=== PATIENT | male | born 1960 | race Caucasian/White ===

== ENCOUNTER 2019-12-15 12:06 | Inpatient (IN) ==
[2019-12-15] MEDS ORDERED: dilTIAZem HCl 5 MG/ML 5 ML VIAL IV STA (12:17)
[2019-12-15] MEDS ORDERED: STAT IV Infusion **Titration per Protocol STA (12:17)
[2019-12-15] MEDS ORDERED: SODIUM CHLORIDE 0.9% 500 ML IV SCH (12:30)
--- NOTE | 2019-12-15 12:31 | Electrocardiogram Report ---
Test Reason : Blood Pressure : / mmHG Vent. Rate : 173 BPM Atrial Rate : 133 BPM P-R Int : 000 ms QRS Dur : 076 ms QT Int : 264 ms P-R-T Axes : 000 061 080 degrees QTc Int : 447 ms Poor data quality, interpretation may be adversely affected Atrial fibrillation with rapid ventricular response Abnormal ECG When compared with ECG of 11-AUG-2014 11:38, ST no longer depressed in Inferior leads Nonspecific T wave abnormality no longer evident in Inferior leads Confirmed by Elieser Hurley ([id number]) on 12/15/2019 12:31:09 PM Referred By: Confirmed By:Elieser Hurley
[2019-12-15] MEDS: dilTIAZem HCL 125 MG in DEXTROSE 5% 100 ML IV SCH ×2 (12:50→20:40)
--- NOTE | 2019-12-15 12:53 | XRay Report ---
XR chest 1V portable CLINICAL HISTORY: Atypical chest pain COMPARISON STUDY: 08/11/2014 FINDINGS: The heart is normal in size. There is mild interstitial thickening. There is no lobar conso lidation. There are no pleural effusions.[ IMPRESSION: Mild nonspecific interstitial thickening. No evidence of focal pulmonary consolidation ACT 112: Negative or not required by law. Electronically signed by: Mik Orr M.D. 12/15/2019 12:52 PM
[2019-12-15] MEDS ORDERED: METOPROLOL TARTRATE 1 MG/ML VIAL IV STA ×2 (13:45→14:10)
--- NOTE | 2019-12-15 13:45 | Emergency Department Note ---
History of Present Illness General Chief complaint: Cardiac Assessment Stated complaint: rapid afib/abd pain / sci [place] Time Seen by Provider: 12/15/19 12:09 Source: patient Mode of arrival: EMS Limitations: no limitations History of Present Illness Provider complaint: Rapid A. fib Maximum Pain Intensity: 0 The patient was evaluated in the [facility] today and found to be in A. fib. EMS was called and the patient was brought here for evaluation. He was given some IV fluids in route here. The patient denies any palpitations or chest pains. He did report some aching in his left shoulder a week ago. Otherwise has no complaints. He reports a history of being cardioverted in the past. Allergies Allergy/AdvReac Type Severity Reaction Status Date / Time Penicillins Allergy Unknown UNKN Verified 08/11/14 12:06 Past Med/Surg History Social History Smoking Status: Current every day smoker Tobacco Type: E-cigarettes / Vaping Preferred Language: Azerbaijani Feels Safe at Home: Yes Review of Systems A total of 10 systems reviewed and were otherwise negative Physical Exam Vital Signs Vital Signs - 24 hr 12/15/19 12:17 12/15/19 12:35 12/15/19 12:39 Temperature 36.7 C Temperature Source Oral Pulse Rate 177 H 123 H 113 H Pulse Rate from SpO2 Sensor 121 H 119 H Respiratory Rate 16 30 H 32 H Respiratory Effort / Characteristics Non-Labored Respiratory Depth Normal Respiratory Pattern Regular Blood Pressure 117/84 100/75 Blood Pressure Mean 95 81 Blood Pressure Position Lying Pulse Oximetry 97 98 98 Oxygen Delivery Method Room Air Sepsis Recent Fever Within 48 Hours No Sepsis New/Unexplained Change in Mental Status N/A Sepsis Action Taken by Nursing No Action Required 12/15/19 12:40 12/15/19 12:45 12/15/19 12:50 Temperature Temperature Source Pulse Rate 120 H 144 H 150 H Pulse Rate from SpO2 Sensor 128 H 126 H Respiratory Rate 22 Respiratory Effort / Characteristics Respiratory Depth Respiratory Pattern Blood Pressure 107/64 111/71 Blood Pressure Mean 70 75 Blood Pressure Position Pulse Oximetry 98 98 Oxygen Delivery Method Sepsis Recent Fever Within 48 Hours Sepsis New/Unexplained Change in Mental Status Sepsis Action Taken by Nursing 12/15/19 12:51 12/15/19 12:55 12/15/19 12:56 Temperature Temperature Source Pulse Rate 151 H 127 H 133 H Pulse Rate from SpO2 Sensor 137 H 131 H Respiratory Rate 30 H 19 34 H Respiratory Effort / Characteristics Respiratory Depth Respiratory Pattern Blood Pressure 103/77 127/77 Blood Pressure Mean 91 91 Blood Pressure Position Pulse Oximetry 97 98 Oxygen Delivery Method Sepsis Recent Fever Within 48 Hours Sepsis New/Unexplained Change in Mental Status Sepsis Action Taken by Nursing 12/15/19 13:00 12/15/19 13:05 12/15/19 13:10 Temperature Temperature Source Pulse Rate 143 H 127 H 109 H Pulse Rate from SpO2 Sensor 131 H 111 H 125 H Respiratory Rate 34 H 31 H 30 H Respiratory Effort / Characteristics Respiratory Depth Respiratory Pattern Blood Pressure 102/70 110/75 Blood Pressure Mean 79 85 Blood Pressure Position Pulse Oximetry 99 98 Oxygen Delivery Method Sepsis Recent Fever Within 48 Hours Sepsis New/Unexplained Change in Mental Status Sepsis Action Taken by Nursing 12/15/19 13:11 12/15/19 13:15 12/15/19 13:16 Temperature Temperature Source Pulse Rate 145 H 138 H 145 H Pulse Rate from SpO2 Sensor 133 H 149 H Respiratory Rate 33 H 30 H 33 H Respiratory Effort / Characteristics Respiratory Depth Respiratory Pattern Blood Pressure 126/67 109/72 Blood Pressure Mean 86 83 Blood Pressure Position Pulse Oximetry 97 98 Oxygen Delivery Method Sepsis Recent Fever Within 48 Hours Sepsis New/Unexplained Change in Mental Status Sepsis Action Taken by Nursing 12/15/19 13:20 12/15/19 13:25 12/15/19 13:30 Temperature Temperature Source Pulse Rate 127 H 142 H 147 H Pulse Rate from SpO2 Sensor 138 H 124 H 117 H Respiratory Rate 32 H 32 H 29 H Respiratory Effort / Characteristics Respiratory Depth Respiratory Pattern Blood Pressure 111/76 96/77 L Blood Pressure Mean 89 89 Blood Pressure Position Pulse Oximetry 98 98 96 Oxygen Delivery Method Sepsis Recent Fever Within 48 Hours Sepsis New/Unexplained Change in Mental Status Sepsis Action Taken by Nursing 12/15/19 13:31 12/15/19 13:35 12/15/19 13:36 Temperature Temperature Source Pulse Rate 142 H 120 H 137 H Pulse Rate from SpO2 Sensor 124 H 126 H 141 H Respiratory Rate 33 H 37 H 28 H Respiratory Effort / Characteristics Respiratory Depth Respiratory Pattern Blood Pressure 103/77 118/73 Blood Pressure Mean 85 90 Blood Pressure Position Pulse Oximetry 97 93 96 Oxygen Delivery Method Sepsis Recent Fever Within 48 Hours Sepsis New/Unexplained Change in Mental Status Sepsis Action Taken by Nursing CONSTITUTIONAL/VITAL SIGNS: Reviewed / noted above. GENERAL: Non-toxic in appearance. INTEGUMENTARY: Warm, dry, and [place]. HEAD: Normocephalic. EYES: without scleral icterus or trauma. ENT/OROPHARYNX: clear and moist. LYMPHADENOPATHY/NECK: Is supple without lymphadenopathy or meningismus. RESPIRATORY: Lungs clear and equal. CARDIOVASCULAR: Rapid rate and irregular rhythm. GI/ABDOMEN: Soft and nontender. No organomegaly or pulsatile mass. No rebound or guarding. Normal bowel sounds. EXTREMITIES: Warm and well perfused. BACK: No CVA tenderness. NEUROLOGICAL: Intact without focal deficits. PSYCHIATRIC: normal affect. MUSCULOSKELETAL: Normally developed with good muscle tone. TRIAGE NURSING DOCUMENTATION REVIEWED. Course Administered Medications Diltiazem HCl 125 mg/ Dextrose 125 mls @ 5 mls/hr IV .Q24H LYNNE; Protocol Stop: 01/14/20 12:29 Last Titration: 12/15/19 13:17 Dose: 15 mg/hr, 15 mls/hr Documented by: [id number] Cosigned by: [id number] Admin: 12/15/19 12:50 Dose: 10 mg/hr, 10 mls/hr Documented by: [id number] Cosigned by: [id number] Discontinued Medications Diltiazem HCl (Diltiazem Hcl 5 Mg/Ml 5 Ml Vial) 25 mg IV NOW STA Stop: 12/15/19 12:18 Last Admin: 12/15/19 12:22 Dose: 25 mg Documented by: [id number] Cosigned by: [id number] Sodium Chloride (Nss) 500 mls @ 999 mls/hr IV .Q31M LYNNE Stop: 12/15/19 13:00 Last Infusion: 12/15/19 13:03 Dose: 0 mls/hr Documented by: [id number] Admin: 12/15/19 12:24 Dose: 999 mls/hr Documented by: [id number] Miscellaneous (Stat Iv Infusion Titration Per Protocol) 1 ea N/A NOW STA Stop: 12/15/19 12:18 Last Admin: 12/15/19 12:50 Dose: 1 ea Documented by: [id number] Medical Decision Making Differential Diagnosis The differential that was considered includes acute myocardial infarction, acute coronary syndrome, myocarditis, pericarditis, pericardial effusions /tamponade, esophageal perforation, thoracic aortic dissection, pulmonary embolism, pneumonia, pneumothorax, pancreatitis, shingles, acute cholecystitis, perforated abdominal viscus. Medical Records Attestation: I reviewed the patient's medical records. Home Medications Current Medication List: was personally reviewed by me Laboratory Data Attestation: I reviewed the patient's lab results. Imaging Data Radiologist's Impression: XR chest 1V portable CLINICAL HISTORY: Atypical chest pain COMPARISON STUDY: 08/11/2014 FINDINGS: The heart is normal in size. There is mild interstitial thickening. There is no lobar consolidation. There are no pleural effusions.[ IMPRESSION: Mild nonspecific interstitial thickening. No evidence of focal pulmonary consolidation Blood Pressure Blood Pressure Findings: Normal blood pressure MDM Narrative Patient presents with A. fib with RVR. He reportedly has a history of paroxysmal A. fib. The patient was treated with IV diltiazem here as well as IV fluids and IV metoprolol. He was given a diltiazem drip. Heart rate did improve some. He will be seen by the hospitalist for further inpatient evaluation and care. Impression & Plan Atrial fibrillation with RVR Discharge Plan Visit Data Chief Complaint: Cardiac Assessment Stated Complaint: rapid afib/abd pain / sci [place] ED Provider: Fritz Aguilar Discharge Problem: Atrial fibrillation with RVR Patient Disposition: Being Evaluated by Hospitalist Condition: Fair Forms Stand Alone Forms: My [facility], [facility] Emergency Department, Important Visit Information Referrals Referrals: Maciej MCCLURE [Primary Care Provider] -
[2019-12-15 13:55] LABS: Basophils # (auto) 0.01 K/uL (0-0.2); Basophils % (auto) 0.1 %; Eosinophils # (auto) 0.01 K/uL (0-0.5); Eosinophils % (auto) 0.1 %; Hematocrit (blood only) 37.8 % (42-52); Immature Granulocytes # (auto) 0.11 K/uL (0.00-0.02); Immature Granulocytes % (auto) 0.6 %; Lymphocytes # (auto) 1.01 K/uL (1.2-3.4); Lymphocytes % (auto) 5.6 %; Mean Corpuscular Hgb Conc 34.4 g/dL (32-36); Mean Platelet Volume 9.5 fL (7.4-10.4); Monocytes # (auto) 0.63 K/uL (0.11-0.59); Monocytes % (auto) 3.5 %; Neutrophils # (auto) 16.38 K/uL (1.4-6.5); Neutrophils % (auto) 90.1 %; Platelet Count 162 K/uL (130-400); RDW Coefficient of Variation 14.4 % (11.5-14.5); RDW Standard Deviation 47.8 fL (36.4-46.3); White Blood Count 18.15 K/uL (4.8-10.8)
[2019-12-15 14:14] LABS: Albumin Level 2.2 gm/dl (3.4-5.0); BUN Creatinine Ratio 28.4 (10-20); Calcium 8.6 mg/dl (8.5-10.1); Creatinine Clr Calc Pharmacy 108.5 ml/min; Est GFR (African American) 114.9; Est GFR (Non-African American) 99.2; Magnesium 2.4 mg/dl (1.8-2.4); Potassium 3.9 mmol/L (3.5-5.1)
[2019-12-15 14:24] LABS: Albumin Globulin Ratio 0.5 (0.9-2); Globulin 4.9 gm/dl (2.5-4.0); Thyroid Stimulating Hormone 0.477 uIu/ml (0.300-4.500); Total Protein 7.1 gm/dl (6.4-8.2)
--- NOTE | 2019-12-15 16:09 | History & Physical Report ---
Date of Service December 15, 2019 Assessment & Plan (1) Atrial fibrillation with RVR: Not known history to long-term but prior EKG in 2015 with confirmed prior diagnosis of this. Not on anticoagulation. TSH WNL. TTE ordered. Anticoagulation - [id number] score pending with US arterial doppler to confirm historical diagnosis of PVD - if positive would score 1 and will start Eliquis. Rate-control - fluid resuscitate with additional 1L NSS bolus now as clinically dry, then continue rate control with diltiazem IV drip, goal to transition to metoprolol as able after adequate fluid resuscitation (2) Leukocytosis: Suspect infection driving his atrial fibrillation. Questionable source cellulitis of the lower extremities. CT abdomen/pelvis with IV contrast to assess for abdominal cause given pain and diarrhea for last 2-4 days (although abdominal pain also mentioned in outpatient notes as far back as September 09). (3) Generalized abdominal pain: Diarrheal illness now resolved CT abdomen/pelvis with IV contrast (4) Cellulitis of right lower extremity: Questionable diagnosis given chronic venous changes, however elevated WBC and increased erythema and warmth on right compared to left side despite worse ulcers on left. Unable to explain leukocytosis otherwise. Blood cultures. Ceftriaxone 2g IV daily - patient is not-septic therefore will defer MRSA and pseudomonas coverage at the current time, consider MRSA coverage if WBC remains elevated without alternative explanation. Ultrasound arterial Doppler to assess for peripheral vascular disease (5) Venous ulcers of both lower extremities: Chronic. Unna boot used as outpatient at [facility] despite diagnosis of PVD. Consult wound care nurse for appropriate dressing while admitted. (6) Peripheral vascular disease: Unclear history of this. He is not on any antiplatelets or statin. US arterial Doppler. (7) BPH (benign prostatic hyperplasia): Continue finasteride 5 mg p.o. daily. Monitor for urinary retention as not on alpha-1 ovidio. (8) Mixed incontinence: Notable history of this. (9) Depression: Continue fluoxetine 20 mg p.o. daily, aripiprazole 2 mg p.o. daily. 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 This is on a background of 4 days of nausea, loose stool, abdominal pain. His diarrhea resolved 2 days ago. Not watery, no bright red blood, no melena. Nausea but with no vomiting. No fever, chills or cough. Sent to [facility] today due to RUQ pain noted on exam at long-term but also noted to be tachycardic with irregular heart rate. He also a longstanding history of chronic venous ulcers. This was more recently treated with an Unna boot starting on November 07. He was recently treated with antibiotics - Clindamycin initially then switched to Bactrim but has been off antibiotics since mid-October. The patient reports his legs actually look improved from previously although is unsure about the erythema. He denies any fevers, chills or worsening pain in his legs. No known history of atrial fibrillation per [facility] although listed as historical diagnosis in [employer] and I believe this was entered as a diagnosis for a 30 day event monitor back in 2014 that was never completed. Patient has no recollection of this. Allergies Allergy/AdvReac Type Severity Reaction Status Date / Time Penicillins Allergy Unknown UNKN Verified 12/15/19 14:34 Home Medications Home Medications Medication Instructions Recorded Confirmed Type aripiprazole 2 mg PO DAILY 12/15/19 12/15/19 History finasteride 5 mg PO DAILY 12/15/19 12/15/19 History fluoxetine 20 mg PO DAILY 12/15/19 12/15/19 History ibuprofen 600 mg PO TID 12/15/19 12/15/19 History vitamin A and D [A and D] 1 applic TOPICAL DAILY 12/15/19 12/15/19 History Past Med/Surg History Medical History Alcoholism BPH (benign prostatic hyperplasia) Depression Generalized abdominal pain Mixed incontinence Peripheral vascular disease Schizotypal personality disorder Venous ulcers of both lower extremities Social History Smoking Status: Former smoker Tobacco Type: E-cigarettes / Vaping Second Hand Exposure: Yes; Do You Dip or Chew Tobacco: No; Tobacco Cessation Education Requested by Patient: No Hx Alcohol Use: No Hx Substance Use: No Preferred Language: Somali Communication Ability: Effective Ironer Or Presser Required: No Beliefs That Will Affect Care: None Current Living Situation: Other Current Living Situation Comment: Inmate at [facility] Other Information That Helps Us Care for You: No Feels Safe at Home: Yes Safety Concerns: Feels Safe At This Time Review of Systems Review of Systems: All systems reviewed & are unremarkable except as noted in HPI & below Physical Exam Constitutional: well developed; + not well nourished and no acute distress Eyes: + anicteric sclerae; normal pupil size ENMT: Ears: no external ear abnormality Nose: no external nose abnormality Mouth: + dry oral mucous membranes Neck: trachea midline, no thyromegaly Respiratory: normal respiratory effort, lungs clear to auscultation Cardiovascular: Rate/Rhythm: + tachycardic and + irregularly irregular Heart Sounds: no murmur Vessels: no JVD Extremities: normal capillary refill (Bilateral LE); no calf tenderness and no pedal edema Gastrointestinal (Abdomen): Inspection/Auscultation: normal bowel sounds; abdomen not distended Percussion/Palpation: + abdomen tender (Generalized on palpation) and abdomen soft; no guarding and abdomen not rigid Musculoskeletal: no cyanosis or clubbing, extremities motor strength 5/5 Skin: Unna boots removed for examination. Erythema with warmth on RLE from mid ty to all toes, stage 1/2 ulcers above medical malleolus with crust formation as possible site of infection LLE with more significant cracked skin ulcerations on above medial malleolus with dark erythema surrounding ulceration 1-2 cm but otherwise much clearer the right side. Neurologic: moves all extremities and awake; no focal motor deficits and not confused Motor/Sensory: no tremor, no pronator drift and no sensory deficit (per patient, full sensation in feet) Psychiatric: Orientation: alert and oriented x 3 Affect: + anxious affect Genitourinary: no CVA tenderness Lymphatic: no cervical or axillary lymphadenopathy Results & Data Results & Data ([facility]) Vital Signs (Past 12 Hours) Vital Signs Temp Pulse Resp BP Pulse Ox 12/15/19 15:40 113 H 36 H 102/82 97 12/15/19 15:35 91 H 33 H 106/67 97 12/15/19 15:30 101 H 34 H 96/69 L 97 12/15/19 15:25 112 H 35 H 95/67 L 97 12/15/19 15:20 103 H 102/63 95 12/15/19 15:15 98 H 107/67 97 12/15/19 15:10 95 H 35 H 99/63 L 96 12/15/19 15:05 103 H 90/67 L 97 12/15/19 15:00 105 H 108/73 96 12/15/19 14:55 98 H 25 H 103/65 93 12/15/19 14:50 104 H 39 H 92/74 L 96 12/15/19 14:45 105 H 34 H 100/76 96 12/15/19 14:42 110 H 33 H 95 12/15/19 14:40 109 H 39 H 121/73 96 12/15/19 14:39 127 H 24 108/85 12/15/19 14:38 169 H 12/15/19 14:25 125 H 108/66 93 12/15/19 14:20 115 H 22 96/71 L 96 12/15/19 14:15 115 H 28 H 88/72 L 94 12/15/19 14:10 120 H 26 H 95/64 L 96 12/15/19 14:05 102 H 19 94/72 L 95 12/15/19 14:00 120 H 90/69 L 95 12/15/19 13:55 140 H 32 H 115/78 96 12/15/19 13:50 146 H 29 H 101/75 95 12/15/19 13:45 139 H 32 H 115/70 96 12/15/19 13:40 134 H 33 H 90/76 L 96 12/15/19 13:36 137 H 28 H 118/73 96 12/15/19 13:35 120 H 37 H 93 12/15/19 13:31 142 H 33 H 103/77 97 12/15/19 13:30 147 H 29 H 96 12/15/19 13:25 142 H 32 H 96/77 L 98 12/15/19 13:20 127 H 32 H 111/76 98 12/15/19 13:16 145 H 33 H 109/72 98 12/15/19 13:15 138 H 30 H 12/15/19 13:11 145 H 33 H 126/67 97 12/15/19 13:10 109 H 30 H 12/15/19 13:05 127 H 31 H 110/75 98 12/15/19 13:00 143 H 34 H 102/70 99 12/15/19 12:56 133 H 34 H 127/77 98 12/15/19 12:55 127 H 19 12/15/19 12:51 151 H 30 H 103/77 97 12/15/19 12:50 150 H 12/15/19 12:45 144 H 22 111/71 98 12/15/19 12:40 120 H 107/64 98 12/15/19 12:39 113 H 32 H 98 12/15/19 12:35 123 H 30 H 100/75 98 12/15/19 12:17 36.7 C 177 H 16 117/84 97 Diagnostic Findings XR chest 1V portable IMPRESSION: Mild nonspecific interstitial thickening. No evidence of focal pulmonary consolidation ECG Rate (beats per minute): 173 Rhythm: atrial fibrillation Comparison ECG Date: from (August 11, 2014) Change: the following changes noted (ST no longer depressed in inferior leads) Code Status & VTE Plan Code Status Full VTE Prophylaxis Plan VTE Prophylaxis will be ordered: Yes PG Care Time/CCT Total # of Minutes Spent Total Time Spent with Patient: Total time spent is greater than 50% in coordination of care (as documented) at patient's floor/unit and/or counseling patient: Coding Level of Care Code 08343 Initial Inpt Care Lvl 3 Diagnoses Atrial fibrillation with RVR I48.91 Leukocytosis D72.829 Generalized abdominal pain R10.84 Cellulitis of right lower extremity L03.115 Venous ulcers of both lower extremities I83.019; I83.029; L97.919; L97.929 Peripheral vascular disease I73.9 BPH (benign prostatic hyperplasia) N40.0 Mixed incontinence N39.46 Depression F32.9 Schizotypal personality disorder F21 DVT prophylaxis Z29.9
[2019-12-15] MEDS ORDERED: ONDANSETRON INJ 2 MG/ML 2 ML VIAL IV PRN (17:15)
[2019-12-15] MEDS ORDERED: SODIUM CHLORIDE 0.9% 1000ML 1,000 ML IV ONE (17:15)
[2019-12-15] MEDS ORDERED: IOVERSOL 100ml IV ONE (17:26)
--- NOTE | 2019-12-15 17:51 | CT Scan Report ---
ABDOMEN AND PELVIS CT WITH IV CONTRAST CT DOSE: 335.53 mGy.cm HISTORY: Elevated WBC, generalized abdominal pain r/o diverticulitis/cholecy TECHNIQUE: Multiaxial CT images of the abdomen and pelvis were performed following the use of intrave nous contrast. A dose lowering technique was utilized adhering to the principles of ALARA. COMPARISON STUDY: None. FINDINGS: No pneumoperitoneum. No pneumatosis. No fractures within the visualized osseous structures. No hepatic or splenic masses. The adrenal glands are unremarkable. There is a punctate calcification which appears to be within the wall the gallbladder. The gallbladder is otherwise unremarkable. The pancreas enhances normally. There is edema surrounding the pancreatic head. There is also retroperito zoraida and perinephric edema. There is also presacral edema and trace ascites present. Normal caliber a bdominal aorta. The IVC is distended but appears patent. The bladder is unremarkable. No definite bow el wall thickening or obstruction. There is retroperitoneal lymphadenopathy. The main portal vein is patent. No pelvic lymphadenopathy. Small bilateral pleural effusions. Consolidation within the bilate ral lower lobes posteriorly favor atelectasis from the bilateral pleural effusions. Dominant left per iaortic lymph node measures 2.3 x 1.7 cm. No mesenteric lymphadenopathy. There is mild mesenteric hodan ma. The appendix is not identified and reportedly surgically absent. IMPRESSION: 1. Moderate diffuse retroperitoneal edema which is also seen within the presacral space. There is als o trace ascites, mesenteric edema, and small bilateral pleural effusions. These findings are nonspeci fic but could be due to a diffuse edematous state. An acute pancreatitis could also have a similar ap pearance in the appropriate clinical setting. However, the pancreas enhances normally. Recommend aliyah elation with pancreatic enzymes for further evaluation. 2. Retroperitoneal lymphadenopathy as described above. This is also nonspecific could be reactive to the edema. A neoplastic process such as lymphoma cannot be excluded on the basis of imaging alone. Sh ort-term follow-up recommended to ensure stability/resolution of the lymphadenopathy. 3. Distended IVC which is patent. This can be seen in the setting of fluid overload. 4. Additional findings as described above. ACT 112: Negative or not required by law. Electronically signed by: Khoa Sparks M.D. 12/15/2019 5:50 PM
[2019-12-15] MEDS: cefTRIAXone SODIUM 2,000 MG in DEXTROSE 5% 50 ML IV SCH (18:19)
[2019-12-15] MEDS ORDERED: METOPROLOL TARTRATE 25 MG TAB PO STA (18:29)
[2019-12-15] MEDS: ACETAMINOPHEN 325 MG TAB PO PRN (18:39)
[2019-12-15 18:53] LABS: INR 1.1 (0.9-1.1); Partial Thromboplastin Ratio 1.2; Partial Thromboplastin Time 32.7 Seconds (21.0-31.0); Prothrombin Time 11.5 Seconds (9.0-12.0)
[2019-12-15] MEDS: APIXABAN 5 MG TABLET PO SCH (21:24)
[2019-12-15] MEDS: METOPROLOL TARTRATE 25 MG TAB PO SCH (21:25)
[2019-12-16 06:09] LABS: Basophils # (auto) 0.01 K/uL (0-0.2); Basophils % (auto) 0.1 %; Eosinophils # (auto) 0.01 K/uL (0-0.5); Eosinophils % (auto) 0.1 %; Hematocrit (blood only) 35.5 % (42-52); Hemoglobin 12.3 g/dL (14.0-18.0); Immature Granulocytes # (auto) 0.08 K/uL (0.00-0.02); Immature Granulocytes % (auto) 0.5 %; Lymphocytes % (auto) 7.4 %; Mean Corpuscular Hemoglobin 30.8 pg (25-34); Mean Corpuscular Hgb Conc 34.6 g/dL (32-36); Mean Platelet Volume 9.7 fL (7.4-10.4); Monocytes # (auto) 0.69 K/uL (0.11-0.59); Monocytes % (auto) 4.2 %; Neutrophils # (auto) 14.31 K/uL (1.4-6.5); Neutrophils % (auto) 87.7 %; Platelet Count 170 K/uL (130-400); RDW Coefficient of Variation 14.3 % (11.5-14.5); Red Blood Count 3.99 M/uL (4.7-6.1)
[2019-12-16 06:39] LABS: BUN Creatinine Ratio 29.4 (10-20); Calcium 8.2 mg/dl (8.5-10.1); Creatinine Clr Calc Pharmacy 115.7 ml/min; Est GFR (Non-African American) 101.8; Phosphorus 2.1 mg/dl (2.5-4.9); Potassium 3.1 mmol/L (3.5-5.1)
[2019-12-16] MEDS: LACTOBACILLUS ACIDOPHILUS (FLORANEX) TAB PO SCH ×3 (07:48→17:05)
[2019-12-16] MEDS: FINASTERIDE 5 MG TAB PO SCH (07:49)
[2019-12-16] MEDS: APIXABAN 5 MG TABLET PO SCH ×2 (07:49→21:53)
[2019-12-16] MEDS: METOPROLOL TARTRATE 25 MG TAB PO SCH ×2 (07:49→12:22)
[2019-12-16] MEDS: FLUOXETINE HCL 20 MG CAP PO SCH (07:50)
[2019-12-16] MEDS: ARIPIprazole 1 MG/ML ORAL SOLN 150 ML BTL PO SCH (07:50)
--- NOTE | 2019-12-16 07:57 | Ultrasound Report ---
BILATERAL ANKLE TO BRACHIAL INDICES CLINICAL HISTORY: PVD COMPARISON STUDY: No previous studies for comparison. TECHNIQUE: Bilateral ankle to brachial indices were obtained. FINDINGS: Right ankle-brachial index measured 1.07 when using the posterior tibial artery 1.06 when u sing the dorsalis pedis. The left measured 1.1 when using posterior tibial artery 1.16 when using the dorsalis pedis. IMPRESSION: Normal bilateral ankle to brachial indices. ACT 112: Negative or not required by law. Electronically signed by: Jv Davidson M.D. 12/16/2019 7:56 AM
[2019-12-16] MEDS ORDERED: DAPTOMYCIN CONSULT ACTIVE PRN (08:02)
[2019-12-16] MEDS ORDERED: SODIUM CHLORIDE 0.9% 1000ML 1,000 ML IV ONE (08:03)
[2019-12-16] MEDS: DAPTOmycin 450 MG in SYRINGE 0 ML IV SCH (08:57)
[2019-12-16] MEDS: dilTIAZem HCL 125 MG in DEXTROSE 5% 100 ML IV SCH (09:31)
--- NOTE | 2019-12-16 11:56 | Hospitalist Progress Note ---
Date of Service December 16, 2019 Assessment & Plan (1) Atrial fibrillation with RVR: Not known history prior to [facility] but prior EKG in 2014 with confirmed diagnosis of this TSH WNL. TTE ordered. continue rate control with Diltiazem drip, at 10mg/hr adequate fluid resuscitation at this time as he has had over 3L NSS BP preserved start on Eliquis tomorrow (2) Leukocytosis: Suspect infection driving his atrial fibrillation. source is cellulitis of the lower extremities. CT abdomen/pelvis with IV contrast without abdominal source no pneumonia on CXR blood cultures with gram positive cocci start on Daptomycin, continue Rocephin for now until final cultures return repeat blood cultures on 12/17 (3) Generalized abdominal pain: Diarrheal illness now resolved CT abdomen/pelvis with IV contrast - no acute process (4) Cellulitis of right lower extremity: Questionable diagnosis given chronic venous changes, however elevated WBC and increased erythema and warmth on right compared to left side despite worse ulcers on left. Unable to explain leukocytosis otherwise. Blood cultures with gram positive cocci Ceftriaxone 2g IV daily, add Daptomycin today for bacteremia (5) Venous ulcers of both lower extremities: Chronic. Unna boot used as outpatient at [place] despite diagnosis of PVD. Consult wound care nurse for appropriate dressing while admitted. (6) Peripheral vascular disease: Unclear history of this. He is not on any antiplatelets or statin. US arterial Doppler, MARY BETH was noted to be normal (7) BPH (benign prostatic hyperplasia): Continue finasteride 5 mg p.o. daily. Monitor for urinary retention as not on alpha-1 ovidio. (8) Mixed incontinence: Notable history of this. (9) Depression: Continue fluoxetine 20 mg p.o. daily, aripiprazole 2 mg p.o. daily. 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: As above (11) DVT prophylaxis: Eliquis Admission and Anticipated Discharge Date Admission Date: December 15, 2019 Subjective called by RN this morning due to HR in the 150-170 range and he was febrile patient was on Diltiazem at 10mg/hr reviewed chart from admission including labs and imaging blood cultures with gram positive cocci in his blood stream patient appeared comfortable, eating all of his breakfast, no distress at all, no dyspnea, no chest pain c/o some pain in right thigh, swollen and erythematous, said it started two days ago reviewed labs, WBC down to 16k, from 18k, K 3.1, BUN and Cr stable added Daptomycin to cover bacteremia and cellulitis as source gave 1L NSS bolus revisited later in the afternoon, HR much better in 100's, BP preserved will stop Lopressor 25mg QID and go with diltiazem for time being patient still feeling well, not very talkative, eating all his meals Review of Systems Review of Systems: All systems reviewed & are unremarkable except as noted in Subjective Respiratory: no cough and no dyspnea Cardiovascular: no chest pain and no edema Gastrointestinal: no abdominal pain, no nausea, no vomiting, no constipation and no diarrhea/loose stools Integumentary: + rash and + erythema (right upper thigh); no wounds Physical Exam Constitutional: well developed, well nourished, + ill appearing and comfor table; no acute distress Eyes: PERRL, conjunctivae normal, anicteric sclerae ENMT: external ear and nose normal, oropharynx normal Neck: trachea midline, no thyromegaly Respiratory: normal respiratory effort, lungs clear to auscultation Cardiovascular: Rate/Rhythm: + tachycardic and + irregularly irregular Heart Sounds: normal S1 and normal S2; no murmur Vessels: no JVD Extremities: normal capillary refill; no edema Gastrointestinal (Abdomen): normal bowel sounds, soft, nontender, no hepatosplenomegaly Musculoskeletal: no cyanosis or clubbing, extremities motor strength 5/5 Skin: + rash (right thigh) and + erythema (right thigh, with warmth and tenderness); no wound Neurologic: patellar DTR's 2+ bilat, sensation intact and PERRL, EOMI, accommodation nl, no face palsy, no dysarthria Psychiatric: Orientation: alert and oriented x 3 Affect: + flat affect Lymphatic: no cervical or axillary lymphadenopathy Results & Data Results & Data ([facility]) Vital Signs (Past 12 Hours) Vital Signs Temp Pulse Resp BP Pulse Ox 12/16/19 07:20 37.4 C 107 H 20 105/67 93 12/16/19 04:00 38.2 C H 120 H 18 106/68 93 Laboratory Results Laboratory Results - last 24 hr 12/15/19 12/15/19 12/15/19 13:36 13:36 13:36 WBC 18.15 H RBC 4.20 L Hgb 13.0 L Hct 37.8 L MCV 90.0 MCH 31.0 MCHC 34.4 RDW Std Deviation 47.8 H RDW Coeff of Benjamin 14.4 Plt Count 162 MPV 9.5 Immature Gran % (Auto) 0.6 Neut % (Auto) 90.1 Lymph % (Auto) 5.6 [place] % (Auto) 3.5 Eos % (Auto) 0.1 Baso % (Auto) 0.1 Neut # (Auto) 16.38 H Lymph # (Auto) 1.01 L [place] # (Auto) 0.63 H Eos # (Auto) 0.01 Baso # (Auto) 0.01 Immature Gran # (Auto) 0.11 H PT INR APTT PTT Ratio Sodium 136 Potassium 3.9 Chloride 102 Carbon Dioxide 26 Anion Gap 7.0 BUN 23 H Creatinine 0.80 Est Cr Clr Drug Dosing 108.5 Est GFR ( Amer) 114.9 Est GFR (Non-Af Amer) 99.2 BUN/Creatinine Ratio 28.4 H Glucose 103 H Calcium 8.6 Phosphorus Magnesium 2.4 Total Bilirubin 1.0 AST 36 ALT 42 Alkaline Phosphatase 60 Troponin I < 0.015 Total Protein 7.1 Albumin 2.2 L Globulin 4.9 H Albumin/Globulin Ratio 0.5 L Lipase TSH 0.477 12/15/19 12/15/19 12/16/19 13:36 13:40 05:33 WBC 16.30 H RBC 3.99 L Hgb 12.3 L Hct 35.5 L MCV 89.0 MCH 30.8 MCHC 34.6 RDW Std Deviation 47.0 H RDW Coeff of Benjamin 14.3 Plt Count 170 MPV 9.7 Immature Gran % (Auto) 0.5 Neut % (Auto) 87.7 Lymph % (Auto) 7.4 [place] % (Auto) 4.2 Eos % (Auto) 0.1 Baso % (Auto) 0.1 Neut # (Auto) 14.31 H Lymph # (Auto) 1.20 [place] # (Auto) 0.69 H Eos # (Auto) 0.01 Baso # (Auto) 0.01 Immature Gran # (Auto) 0.08 H PT 11.5 INR 1.1 APTT 32.7 H PTT Ratio 1.2 Sodium Potassium Chloride Carbon Dioxide Anion Gap BUN Creatinine Est Cr Clr Drug Dosing Est GFR ( Amer) Est GFR (Non-Af Amer) BUN/Creatinine Ratio Glucose Calcium Phosphorus Magnesium Total Bilirubin AST ALT Alkaline Phosphatase Troponin I Total Protein Albumin Globulin Albumin/Globulin Ratio Lipase 57 L TSH 12/16/19 05:33 WBC RBC Hgb Hct MCV MCH MCHC RDW Std Deviation RDW Coeff of Benjamin Plt Count MPV Immature Gran % (Auto) Neut % (Auto) Lymph % (Auto) [place] % (Auto) Eos % (Auto) Baso % (Auto) Neut # (Auto) Lymph # (Auto) [place] # (Auto) Eos # (Auto) Baso # (Auto) Immature Gran # (Auto) PT INR APTT PTT Ratio Sodium 136 Potassium 3.1 L D Chloride 104 Carbon Dioxide 23 Anion Gap 9.0 BUN 22 H Creatinine 0.75 Est Cr Clr Drug Dosing 115.7 Est GFR ( Amer) 118.0 Est GFR (Non-Af Amer) 101.8 BUN/Creatinine Ratio 29.4 H Glucose 92 Calcium 8.2 L Phosphorus 2.1 L Magnesium Total Bilirubin AST ALT Alkaline Phosphatase Troponin I Total Protein Albumin 2.0 L Globulin Albumin/Globulin Ratio Lipase TSH Microbiology 12/15/19 18:02 Blood Aerobic Blood Culture - Preliminary Gram positive cocci in chains 12/15/19 18:06 Blood Aerobic Blood Culture - Preliminary Gram positive cocci in chains Medications Administered Current Inpatient Medications Acetaminophen (Acetaminophen 325 Mg Tab) 650 mg PO Q4H PRN PRN Reason: Pain or Fever Stop: 01/14/20 17:14 Last Admin: 12/15/19 18:39 Dose: 650 mg Documented by: Apixaban (Apixaban 5 Mg Tablet) 5 mg PO BID [facility] Stop: 01/14/20 20:59 Last Admin: 12/16/19 07:49 Dose: 5 mg Documented by: Aripiprazole (Aripiprazole 1 Mg/Ml Oral Soln 150 Ml Btl) 2 mg PO DAILY LYNNE Stop: 01/15/20 08:59 Last Admin: 12/16/19 07:50 Dose: 2 mg Documented by: Finasteride (Finasteride 5 Mg Tab) 5 mg PO DAILY [facility] Stop: 01/15/20 08:59 Last Admin: 12/16/19 07:49 Dose: 5 mg Documented by: Fluoxetine HCl (Fluoxetine Hcl 20 Mg Cap) 20 mg PO DAILY [facility] Stop: 01/15/20 08:59 Last Admin: 12/16/19 07:50 Dose: 20 mg Documented by: Diltiazem HCl 125 mg/ Dextrose 125 mls @ 10 mls/hr IV .[id number] [facility]; Protocol Stop: 01/14/20 12:29 Last Admin: 12/16/19 09:31 Dose: 10 mg/hr, 10 mls/hr Documented by: Ceftriaxone Sodium 2,000 mg/ (Dextrose) 70 mls @ 100 mls/hr IV Q24H [facility]; Protocol Stop: 12/22/19 17:14 Last Infusion: 12/15/19 19:38 Dose: Infused Documented by: Daptomycin 450 mg/ Syringe 9 mls @ 4.5 mls/min IV Q24H [facility]; Protocol Stop: 12/30/19 08:29 Last Admin: 12/16/19 08:57 Dose: 4.5 mls/min Documented by: Lactobacillus Acidophilus (Lactobacillus Acidophilus (Floranex) Tab) 4 tab PO TIDM [facility] Stop: 01/15/20 07:59 Last Admin: 12/16/19 07:48 Dose: 4 tab Documented by: Metoprolol Tartrate (Metoprolol Tartrate 25 Mg Tab) 25 mg PO QID [facility] Stop: 01/14/20 20:59 Last Admin: 12/16/19 07:49 Dose: 25 mg Documented by: Miscellaneous (A+D Ointment: Order Awaiting Action) 1 ea N/A QS [facility] Stop: 01/15/20 00:00 Last Admin: 12/16/19 07:51 Dose: Not Given Documented by: Miscellaneous Information (Daptomycin Consult Active) 1 ea N/A UD PRN PRN Reason: Consult Stop: 01/15/20 08:01 Ondansetron HCl (Ondansetron Inj 2 Mg/Ml 2 Ml Vial) 4 mg IV Q6H PRN PRN Reason: Nausea Stop: 01/14/20 17:14 PG Care Time/CCT Total # of Minutes Spent Total Time Spent: 36 Total Time Spent with Patient: Total time spent is greater than 50% in coordination of care (as documented) at patient's floor/unit and/or counseling patient: Coding Level of Care Code 68094 Subseq Hosp Care Lvl 3 Diagnoses Atrial fibrillation with RVR I48.91 Leukocytosis D72.829 Generalized abdominal pain R10.84 Cellulitis of right lower extremity L03.115 Venous ulcers of both lower extremities I83.019; I83.029; L97.919; L97.929 Peripheral vascular disease I73.9 BPH (benign prostatic hyperplasia) N40.0 Mixed incontinence N39.46 Depression F32.9 Schizotypal personality disorder F21 DVT prophylaxis Z29.9
--- NOTE | 2019-12-16 12:10 | XCELERA ---
[id number]
[2019-12-16] MEDS: cefTRIAXone SODIUM 2,000 MG in DEXTROSE 5% 50 ML IV SCH (17:20)
[2019-12-17] MEDS: dilTIAZem HCL 125 MG in DEXTROSE 5% 100 ML IV SCH ×2 (00:42→14:28)
[2019-12-17 00:56] LABS: Appearance Urine Clear (Clear); Bacteria Urine Automated Negative (Negative); Bilirubin Urine Negative (Negative); Blood Urine 1+ (Negative); Color Urine Dark Yellow; Epithelial Cell Urine Auto 20-30 /lpf (0-5); Glucose Urine UA Negative (Negative); Ketones Urine Negative (Negative); Leukocyte Esterase Urine Negative (Negative); Nitrite Urine Negative (Negative); Protein Urine 2+ (Negative); Specific Gravity Urine 1.025 (1.000-1.030); Urobilinogen Urine Negative (Negative)
[2019-12-17 06:40] LABS: Hematocrit (blood only) 32.5 % (42-52); Hemoglobin 11.4 g/dL (14.0-18.0); Mean Corpuscular Hemoglobin 31.3 pg (25-34); Mean Corpuscular Hgb Conc 35.1 g/dL (32-36); Mean Corpuscular Volume 89.3 fL (80-100); Mean Platelet Volume 9.1 fL (7.4-10.4); Platelet Count 205 K/uL (130-400); RDW Coefficient of Variation 14.4 % (11.5-14.5); RDW Standard Deviation 47.3 fL (36.4-46.3); Red Blood Count 3.64 M/uL (4.7-6.1); White Blood Count 16.39 K/uL (4.8-10.8)
[2019-12-17 07:08] LABS: BUN Creatinine Ratio 23.7 (10-20); Basophils # (auto) 0.03 K/uL (0-0.2); Basophils % (auto) 0.2 %; Calcium 8.4 mg/dl (8.5-10.1); Creatinine Clr Calc Pharmacy 114.2 ml/min; Eosinophils # (auto) 0.09 K/uL (0-0.5); Eosinophils % (auto) 0.5 %; Est GFR (African American) 117.4; Est GFR (Non-African American) 101.3; Immature Granulocytes # (auto) 0.13 K/uL (0.00-0.02); Immature Granulocytes % (auto) 0.8 %; Lymphocytes # (auto) 1.81 K/uL (1.2-3.4); Monocytes # (auto) 1.32 K/uL (0.11-0.59); Monocytes % (auto) 8.1 %; Neutrophils # (auto) 13.01 K/uL (1.4-6.5); Neutrophils % (auto) 79.4 %; Potassium 2.9 mmol/L (3.5-5.1)
[2019-12-17] MEDS: DAPTOmycin 450 MG in SYRINGE 0 ML IV SCH (08:06)
[2019-12-17] MEDS: ARIPIprazole 1 MG/ML ORAL SOLN 150 ML BTL PO SCH (08:07)
[2019-12-17] MEDS: FINASTERIDE 5 MG TAB PO SCH (08:07)
[2019-12-17] MEDS: FLUOXETINE HCL 20 MG CAP PO SCH (08:07)
[2019-12-17] MEDS: APIXABAN 5 MG TABLET PO SCH ×2 (08:07→19:28)
[2019-12-17] MEDS: LACTOBACILLUS ACIDOPHILUS (FLORANEX) TAB PO SCH ×3 (08:07→16:21)
[2019-12-17] MEDS ORDERED: POTASSIUM CHLORIDE 40 MEQ in SODIUM CHLORIDE 0.9% 1000ML 1,000 ML IV SCH (11:15)
--- NOTE | 2019-12-17 11:16 | Hospitalist Progress Note ---
Date of Service December 17, 2019 Assessment & Plan (1) Atrial fibrillation with RVR: Not known history prior to [facility] but prior EKG in 2014 with confirmed diagnosis of this TSH WNL. TTE ordered - EF preserved, no wall motion abnormalities continue rate control with Diltiazem drip, at 10mg/hr on Eliquis for anticoagulation try to convert to PO Diltiazem tomorrow as long as he remains stable (2) Leukocytosis: Suspect infection driving his atrial fibrillation. source is cellulitis of the lower extremities. CT abdomen/pelvis with IV contrast without abdominal source no pneumonia on CXR UA does not show signs of UTI blood cultures with gram positive cocci - beta strep continue Daptomycin and Rocephin today, taper to single antibiotic tomorrow repeat blood cultures on 12/17 no vegetations seen on TTE if blood cultures persistently positive then consider JOAN (3) Generalized abdominal pain: Diarrheal illness now resolved CT abdomen/pelvis with IV contrast - no acute process (4) Cellulitis of right lower extremity: Questionable diagnosis given chronic venous changes, however elevated WBC and increased erythema and warmth on right compared to left side despite worse ulcers on left. Unable to explain leukocytosis otherwise. Blood cultures with beta strep, consistent with skin infection Ceftriaxone 2g IV daily and Daptomycin daily, taper tomorrow (5) Venous ulcers of both lower extremities: Chronic. Unna boot used as outpatient at [facility] despite diagnosis of PVD. Consult wound care nurse for appropriate dressing while admitted. (6) Peripheral vascular disease: Unclear history of this. He is not on any antiplatelets or statin. US arterial Doppler, MARY BETH was noted to be normal (7) BPH (benign prostatic hyperplasia): Continue finasteride 5 mg p.o. daily. Monitor for urinary retention as not on alpha-1 ovidio. (8) Mixed incontinence: Notable history of this. (9) Depression: Continue fluoxetine 20 mg p.o. daily, aripiprazole 2 mg p.o. daily. 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: As above (11) DVT prophylaxis: Eliquis (12) Hypokalemia: low at 2.9 will start on 20mEq PO TID, add 40mEq in IV fluids, give 20mEq in K riders repeat tomorrow Admission and Anticipated Discharge Date Admission Date: December 15, 2019 Subjective patient feels about the same today, he is not very talkative but this seems to be his baseline his right leg continues with erythema and swelling, not hot or tender, no fever/chills today blood cultures with beta strep HR is better today, was in the low 100's on Diltiazem 10mg/hr, down to 80's and BP better his urine was concentrated this morning, gave him NSS potassium low at 2.9, Cr is normal WBC still high at 16k Review of Systems Review of Systems: All systems reviewed & are unremarkable except as noted in Subjective Physical Exam Constitutional: well developed, well nourished and comfortable; no acute distress Eyes: PERRL, conjunctivae normal, anicteric sclerae ENMT: external ear and nose normal, oropharynx normal Neck: trachea midline, no thyromegaly Respiratory: normal respiratory effort, lungs clear to auscultation Cardiovascular: Rate/Rhythm: regular rate and + irregularly irregular Heart Sounds: normal S1 and normal S2; no murmur Vessels: no JVD Extremities: normal capillary refill; no edema Gastrointestinal (Abdomen): normal bowel sounds, soft, nontender, no hepatosplenomegaly Musculoskeletal: no cyanosis or clubbing, extremities motor strength 5/5 Skin: + rash (right thigh) and + erythema (right thigh, no warmth, no tenderness); no wound Neurologic: patellar DTR's 2+ bilat, sensation intact and PERRL, EOMI, accommodation nl, no face palsy, no dysarthria Psychiatric: Orientation: alert and oriented x 3 Affect: + flat affect Lymphatic: no cervical or axillary lymphadenopathy Results & Data Results & Data ([facility]) Vital Signs (Past 12 Hours) Vital Signs Temp Pulse Resp BP BP Pulse Ox 12/17/19 07:12 37 C 100 H 18 106/58 L 91 12/17/19 04:00 36.8 C 122 H 16 102/70 97 12/17/19 00:00 37.1 C 118 H 18 96/60 L 90 Laboratory Results Laboratory Results - last 24 hr 12/16/19 12/17/19 12/17/19 19:50 00:30 06:22 WBC 16.39 H RBC 3.64 L Hgb 11.4 L Hct 32.5 L MCV 89.3 MCH 31.3 MCHC 35.1 RDW Std Deviation 47.3 H RDW Coeff of Benjamin 14.4 Plt Count 205 MPV 9.1 Immature Gran % (Auto) 0.8 Neut % (Auto) 79.4 Lymph % (Auto) 11.0 [place] % (Auto) 8.1 Eos % (Auto) 0.5 Baso % (Auto) 0.2 Neut # (Auto) 13.01 H Lymph # (Auto) 1.81 [place] # (Auto) 1.32 H Eos # (Auto) 0.09 Baso # (Auto) 0.03 Immature Gran # (Auto) 0.13 H Sodium Potassium Chloride Carbon Dioxide Anion Gap BUN Creatinine Est Cr Clr Drug Dosing Est GFR ( Amer) Est GFR (Non-Af Amer) BUN/Creatinine Ratio Glucose Calcium Urine Color Dark Yellow Urine Appearance Clear Urine pH 6.0 Ur Specific [place] 1.025 Urine Protein 2+ H Urine Glucose (UA) Negative Urine Ketones Negative Urine Blood 1+ H Urine Nitrite Negative Urine Bilirubin Negative Urine Urobilinogen Negative Ur Leukocyte Esterase Negative Urine WBC (Auto) 1-5 Urine RBC (Auto) 10-30 H U Hyaline Cast (Auto) 1-5 U Epithel Cells (Auto) 20-30 H Urine Bacteria (Auto) Negative Nasal Screen MRSA (PCR) Negative 12/17/19 06:22 WBC RBC Hgb Hct MCV MCH MCHC RDW Std Deviation RDW Coeff of Benjamin Plt Count MPV Immature Gran % (Auto) Neut % (Auto) Lymph % (Auto) [place] % (Auto) Eos % (Auto) Baso % (Auto) Neut # (Auto) Lymph # (Auto) [place] # (Auto) Eos # (Auto) Baso # (Auto) Immature Gran # (Auto) Sodium 137 Potassium 2.9 L Chloride 105 Carbon Dioxide 25 Anion Gap 7.0 BUN 18 Creatinine 0.76 Est Cr Clr Drug Dosing 114.2 Est GFR ( Amer) 117.4 Est GFR (Non-Af Amer) 101.3 BUN/Creatinine Ratio 23.7 H Glucose 99 Calcium 8.4 L Urine Color Urine Appearance Urine pH Ur Specific [place] Urine Protein Urine Glucose (UA) Urine Ketones Urine Blood Urine Nitrite Urine Bilirubin Urine Urobilinogen Ur Leukocyte Esterase Urine WBC (Auto) Urine RBC (Auto) U Hyaline Cast (Auto) U Epithel Cells (Auto) Urine Bacteria (Auto) Nasal Screen MRSA (PCR) Medications Administered Current Inpatient Medications Acetaminophen (Acetaminophen 325 Mg Tab) 650 mg PO Q4H PRN PRN Reason: Pain or Fever Stop: 01/14/20 17:14 Last Admin: 12/15/19 18:39 Dose: 650 mg Documented by: Apixaban (Apixaban 5 Mg Tablet) 5 mg PO BID [facility] Stop: 01/14/20 20:59 Last Admin: 12/17/19 08:07 Dose: 5 mg Documented by: Aripiprazole (Aripiprazole 1 Mg/Ml Oral Soln 150 Ml Btl) 2 mg PO DAILY [facility] Stop: 01/15/20 08:59 Last Admin: 12/17/19 08:07 Dose: 2 mg Documented by: Finasteride (Finasteride 5 Mg Tab) 5 mg PO DAILY [facility] Stop: 01/15/20 08:59 Last Admin: 12/17/19 08:07 Dose: 5 mg Documented by: Fluoxetine HCl (Fluoxetine Hcl 20 Mg Cap) 20 mg PO DAILY [facility] Stop: 01/15/20 08:59 Last Admin: 12/17/19 08:07 Dose: 20 mg Documented by: Diltiazem HCl 125 mg/ Dextrose 125 mls @ 10 mls/hr IV .[id number] [facility]; Protocol Stop: 01/14/20 12:29 Last Admin: 12/17/19 00:42 Dose: 10 mg/hr, 10 mls/hr Documented by: Ceftriaxone Sodium 2,000 mg/ (Dextrose) 70 mls @ 100 mls/hr IV Q24H [facility]; Protocol Stop: 12/22/19 17:14 Last Infusion: 12/16/19 18:04 Dose: Infused Documented by: Daptomycin 450 mg/ Syringe 9 mls @ 4.5 mls/min IV Q24H [facility]; Protocol Stop: 12/30/19 08:29 Last Admin: 12/17/19 08:06 Dose: 4.5 mls/min Documented by: Potassium Chloride (K Isaiah / Wtr) 10 meq in 100 mls @ 100 mls/hr IV Q1H [facility] Stop: 12/17/19 12:09 Potassium Chloride 40 meq/ (Sodium Chloride) 1,020 mls @ 80 mls/hr IV .[id number] [facility] Stop: 12/17/19 23:59 Lactobacillus Acidophilus (Lactobacillus Acidophilus (Floranex) Tab) 4 tab PO TIDM [facility] Stop: 01/15/20 07:59 Last Admin: 12/17/19 08:07 Dose: 4 tab Documented by: Miscellaneous (A+D Ointment: Order Awaiting Action) 1 ea N/A QS [facility] Stop: 01/15/20 00:00 Last Admin: 12/17/19 08:08 Dose: Not Given Documented by: Miscellaneous Information (Daptomycin Consult Active) 1 ea N/A UD PRN PRN Reason: Consult Stop: 01/15/20 08:01 Multi-Ingredient Cream (Eucerin Cr 120 Gm Jar) 1 appln EXT BID [facility] Stop: 01/16/20 20:59 Ondansetron HCl (Ondansetron Inj 2 Mg/Ml 2 Ml Vial) 4 mg IV Q6H PRN PRN Reason: Nausea Stop: 01/14/20 17:14 Potassium Chloride (Potassium Chloride 20 Meq Tabcr) 20 meq PO TID [facility] Stop: 01/16/20 13:59 PG Care Time/CCT Total # of Minutes Spent Total Time Spent with Patient: Total time spent is greater than 50% in coordination of care (as documented) at patient's floor/unit and/or counseling patient: Coding Level of Care Code 59585 Subseq Hosp Care Lvl 3 Diagnoses Atrial fibrillation with RVR I48.91 Leukocytosis D72.829 Generalized abdominal pain R10.84 Cellulitis of right lower extremity L03.115 Venous ulcers of both lower extremities I83.019; I83.029; L97.919; L97.929 Peripheral vascular disease I73.9 BPH (benign prostatic hyperplasia) N40.0 Mixed incontinence N39.46 Depression F32.9 Schizotypal personality disorder F21 DVT prophylaxis Z29.9 Hypokalemia E87.6
[2019-12-17] MEDS: POTASSIUM CHLORIDE / WTR 10 MEQ/100 ML PLCT IV SCH ×2 (11:43→12:49)
[2019-12-17] MEDS: POTASSIUM CHLORIDE 20 MEQ TABCR PO SCH ×2 (14:28→19:28)
[2019-12-17] MEDS: cefTRIAXone SODIUM 2,000 MG in DEXTROSE 5% 50 ML IV SCH (17:48)
[2019-12-17] MEDS: ACETAMINOPHEN 325 MG TAB PO PRN (20:47)
[2019-12-17] MEDS: EUCERIN CR 120 GM JAR EXT SCH (20:48)
[2019-12-18] MEDS: dilTIAZem HCL 125 MG in DEXTROSE 5% 100 ML IV SCH ×2 (02:24→14:12)
[2019-12-18 06:23] LABS: Hematocrit (blood only) 34.8 % (42-52); Hemoglobin 12.1 g/dL (14.0-18.0); Mean Corpuscular Hgb Conc 34.8 g/dL (32-36); Mean Corpuscular Volume 89.2 fL (80-100); Mean Platelet Volume 8.9 fL (7.4-10.4); Platelet Count 275 K/uL (130-400); RDW Coefficient of Variation 14.5 % (11.5-14.5); RDW Standard Deviation 47.4 fL (36.4-46.3); White Blood Count 17.98 K/uL (4.8-10.8)
[2019-12-18 06:50] LABS: BUN Creatinine Ratio 19.7 (10-20); Calcium 7.9 mg/dl (8.5-10.1); Creatinine Clr Calc Pharmacy 122.3 ml/min; Est GFR (African American) 120.7; Est GFR (Non-African American) 104.2; Magnesium 2.3 mg/dl (1.8-2.4); Potassium 3.3 mmol/L (3.5-5.1)
[2019-12-18 06:52] LABS: Basophils # (auto) 0.02 K/uL (0-0.2); Basophils % (auto) 0.1 %; Eosinophils # (auto) 0.27 K/uL (0-0.5); Eosinophils % (auto) 1.5 %; Immature Granulocytes # (auto) 0.39 K/uL (0.00-0.02); Immature Granulocytes % (auto) 2.2 %; Lymphocytes % (auto) 8.3 %; Monocytes # (auto) 1.57 K/uL (0.11-0.59); Monocytes % (auto) 8.7 %; Neutrophils # (auto) 14.23 K/uL (1.4-6.5); Neutrophils % (auto) 79.2 %
[2019-12-18] MEDS: LACTOBACILLUS ACIDOPHILUS (FLORANEX) TAB PO SCH ×3 (08:34→16:46)
[2019-12-18] MEDS: FLUOXETINE HCL 20 MG CAP PO SCH (08:34)
[2019-12-18] MEDS: ARIPIprazole 1 MG/ML ORAL SOLN 150 ML BTL PO SCH (08:35)
[2019-12-18] MEDS: FINASTERIDE 5 MG TAB PO SCH (08:35)
[2019-12-18] MEDS: POTASSIUM CHLORIDE 20 MEQ TABCR PO SCH ×3 (08:36→19:59)
[2019-12-18] MEDS: EUCERIN CR 120 GM JAR EXT SCH ×2 (08:36→20:00)
[2019-12-18] MEDS: PETROLATUM 16 OZ JAR EXT SCH (08:37)
[2019-12-18] MEDS: APIXABAN 5 MG TABLET PO SCH ×2 (08:45→19:59)
[2019-12-18] MEDS ORDERED: METOPROLOL TARTRATE 50 MG TAB PO ONE (13:00)
--- NOTE | 2019-12-18 15:58 | Hospitalist Progress Note ---
Date of Service December 18, 2019 Assessment & Plan (1) Atrial fibrillation with RVR: Not known history prior to half-way but prior EKG in 2014 with confirmed diagnosis of this TSH WNL. TTE ordered - EF preserved, no wall motion abnormalities rates in 80-90's on Diltiazem, added Lopressor 50mg around 1pm, titrated drip down to 5mg/hr rates still in 80's around 4pm will stop drip, use Lopressor 50mg BID, use Lopressor 5mg IV PRN for HR > 120 on Eliquis for anticoagulation (2) Leukocytosis: Suspect infection driving his atrial fibrillation. source is cellulitis of the lower extremities. CT abdomen/pelvis with IV contrast without abdominal source no pneumonia on CXR UA does not show signs of UTI blood cultures with gram positive cocci - group C beta strep, bledsoe sensitive continue Rocephin repeat blood cultures on 12/17, follow out 48 hours no vegetations seen on TTE if blood cultures persistently positive then consider JOAN (3) Generalized abdominal pain: Diarrheal illness now resolved CT abdomen/pelvis with IV contrast - no acute process (4) Cellulitis of right lower extremity: Questionable diagnosis given chronic venous changes, however elevated WBC and increased erythema and warmth on right compared to left side despite worse ulcers on left. Unable to explain leukocytosis otherwise. Blood cultures with beta strep, consistent with skin infection Ceftriaxone 2g IV daily, will need 14 days total from negative blood culture change to PO antibiotics once repeat blood cultures are negative at 48 hours (5) Venous ulcers of both lower extremities: Chronic. Unna boot used as outpatient at [facility] despite diagnosis of PVD. Consult wound care nurse for appropriate dressing while admitted. (6) Peripheral vascular disease: Unclear history of this. He is not on any antiplatelets or statin. US arterial Doppler, MARY BETH was noted to be normal (7) BPH (benign prostatic hyperplasia): Continue finasteride 5 mg p.o. daily. Monitor for urinary retention as not on alpha-1 ovidio. (8) Mixed incontinence: Notable history of this. (9) Depression: Continue fluoxetine 20 mg p.o. daily, aripiprazole 2 mg p.o. daily. 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: As above (11) DVT prophylaxis: Eliquis (12) Hypokalemia: low at 2.9 will start on 20mEq PO TID, add 40mEq in IV fluids, give 20mEq in K riders repeat tomorrow Admission and Anticipated Discharge Date Admission Date: December 15, 2019 Subjective patient without any changes, he really does not talk much, does not answer questions except yes or no his right leg is looking less red, he admits to less pain reviewed cultures, the strep is bledsoe sensitive, continue Rocephin still has a leukocytosis with WBC of 17k, < 80% PMN BMP is stable in the afternoon HR was better after giving some Lopressor, will stop the Diltiazem drip, control with Lopressor Review of Systems Review of Systems: All systems reviewed & are unremarkable except as noted in Subjective Physical Exam Constitutional: well developed, well nourished and comfortable; no acute distress Eyes: PERRL, conjunctivae normal, anicteric sclerae ENMT: external ear and nose normal, oropharynx normal Neck: trachea midline, no thyromegaly Respiratory: normal respiratory effort, lungs clear to auscultation Cardiovascular: Rate/Rhythm: regular rate and + irregularly irregular Heart Sounds: normal S1 and normal S2; no murmur Vessels: no JVD Extremities: normal capillary refill; no edema Gastrointestinal (Abdomen): normal bowel sounds, soft, nontender, no hepatosplenomegaly Musculoskeletal: no cyanosis or clubbing, extremities motor strength 5/5 Skin: + rash (right thigh) and + erythema (right thigh, less red today, no warmth, no tenderness); no wound Neurologic: patellar DTR's 2+ bilat, sensation intact and PERRL, EOMI, accommodation nl, no face palsy, no dysarthria Psychiatric: Orientation: alert and oriented x 3 Affect: + flat affect Lymphatic: no cervical or axillary lymphadenopathy Results & Data Results & Data ([facility]) Vital Signs (Past 12 Hours) Vital Signs Temp Pulse Resp BP Pulse Ox 12/18/19 15:00 36.8 C 78 18 99/66 L 93 12/18/19 13:10 115 H 100/73 12/18/19 11:56 36.3 C L 114 H 18 123/67 91 12/18/19 08:04 37.0 C 90 18 122/69 96 Laboratory Results Laboratory Results - last 24 hr 12/18/19 12/18/19 06:07 06:07 WBC 17.98 H RBC 3.90 L Hgb 12.1 L Hct 34.8 L MCV 89.2 MCH 31.0 MCHC 34.8 RDW Std Deviation 47.4 H RDW Coeff of Benjamin 14.5 Plt Count 275 MPV 8.9 Immature Gran % (Auto) 2.2 Neut % (Auto) 79.2 Lymph % (Auto) 8.3 Wetzel % (Auto) 8.7 Eos % (Auto) 1.5 Baso % (Auto) 0.1 Neut # (Auto) 14.23 H Lymph # (Auto) 1.50 Wetzel # (Auto) 1.57 H Eos # (Auto) 0.27 Baso # (Auto) 0.02 Immature Gran # (Auto) 0.39 H Sodium 140 Potassium 3.3 L Chloride 108 H Carbon Dioxide 25 Anion Gap 7.0 BUN 14 Creatinine 0.71 Est Cr Clr Drug Dosing 122.3 Est GFR ( Amer) 120.7 Est GFR (Non-Af Amer) 104.2 BUN/Creatinine Ratio 19.7 Glucose 110 H Calcium 7.9 L Magnesium 2.3 Microbiology 12/15/19 18:02 Blood Aerobic Blood Culture - Preliminary Group C Beta Strep 12/15/19 18:02 Blood Anaerobic Blood Culture - Final 12/15/19 18:06 Blood Aerobic Blood Culture - Preliminary Group C Beta Strep 12/15/19 18:06 Blood Anaerobic Blood Culture - Final Medications Administered Current Inpatient Medications Acetaminophen (Acetaminophen 325 Mg Tab) 650 mg PO Q4H PRN PRN Reason: Pain or Fever Stop: 01/14/20 17:14 Last Admin: 12/17/19 20:47 Dose: 650 mg Documented by: Apixaban (Apixaban 5 Mg Tablet) 5 mg PO BID [facility] Stop: 01/14/20 20:59 Last Admin: 12/18/19 08:45 Dose: 5 mg Documented by: Aripiprazole (Aripiprazole 1 Mg/Ml Oral Soln 150 Ml Btl) 2 mg PO DAILY [facility] Stop: 01/15/20 08:59 Last Admin: 12/18/19 08:35 Dose: 2 mg Documented by: Emollient Ointment (Petrolatum 16 Oz Jar) 1 oz EXT DAILY [facility] Stop: 01/17/20 08:59 Last Admin: 12/18/19 08:37 Dose: 1 oz Documented by: Finasteride (Finasteride 5 Mg Tab) 5 mg PO DAILY [facility] Stop: 01/15/20 08:59 Last Admin: 12/18/19 08:35 Dose: 5 mg Documented by: Fluoxetine HCl (Fluoxetine Hcl 20 Mg Cap) 20 mg PO DAILY [facility] Stop: 01/15/20 08:59 Last Admin: 12/18/19 08:34 Dose: 20 mg Documented by: Diltiazem HCl 125 mg/ Dextrose 125 mls @ 10 mls/hr IV .[id number] [facility]; Protocol Stop: 01/14/20 12:29 Last Admin: 12/18/19 14:12 Dose: 5 mg/hr, 5 mls/hr Documented by: Ceftriaxone Sodium 2,000 mg/ (Dextrose) 70 mls @ 100 mls/hr IV Q24H [facility]; Protocol Stop: 12/22/19 17:14 Last Infusion: 12/17/19 18:33 Dose: Infused Documented by: Lactobacillus Acidophilus (Lactobacillus Acidophilus (Floranex) Tab) 4 tab PO TIDM [facility] Stop: 01/15/20 07:59 Last Admin: 12/18/19 10:58 Dose: 4 tab Documented by: Metoprolol Tartrate (Metoprolol Tartrate 50 Mg Tab) 50 mg PO BID [facility] Stop: 01/17/20 20:59 Multi-Ingredient Cream (Eucerin Cr 120 Gm Jar) 1 appln EXT BID [facility] Stop: 01/16/20 20:59 Last Admin: 12/18/19 08:36 Dose: 1 appln Documented by: Ondansetron HCl (Ondansetron Inj 2 Mg/Ml 2 Ml Vial) 4 mg IV Q6H PRN PRN Reason: Nausea Stop: 01/14/20 17:14 Potassium Chloride (Potassium Chloride 20 Meq Tabcr) 20 meq PO TID [facility] Stop: 01/16/20 13:59 Last Admin: 12/18/19 13:04 Dose: 20 meq Documented by: PG Care Time/CCT Total # of Minutes Spent Total Time Spent: 32 Total Time Spent with Patient: Total time spent is greater than 50% in coordination of care (as documented) at patient's floor/unit and/or counseling patient: Coding Level of Care Code 61752 Subseq Hosp Care Lvl 3 Diagnoses Atrial fibrillation with RVR I48.91 Leukocytosis D72.829 Generalized abdominal pain R10.84 Cellulitis of right lower extremity L03.115 Venous ulcers of both lower extremities I83.019; I83.029; L97.919; L97.929 Peripheral vascular disease I73.9 BPH (benign prostatic hyperplasia) N40.0 Mixed incontinence N39.46 Depression F32.9 Schizotypal personality disorder F21 DVT prophylaxis Z29.9 Hypokalemia E87.6
[2019-12-18] MEDS: cefTRIAXone SODIUM 2,000 MG in DEXTROSE 5% 50 ML IV SCH (16:46)
[2019-12-18] MEDS: METOPROLOL TARTRATE 50 MG TAB PO SCH (19:59)
[2019-12-19 07:34] LABS: Basophils # (auto) 0.02 K/uL (0-0.2); Basophils % (auto) 0.2 %; Eosinophils # (auto) 0.17 K/uL (0-0.5); Eosinophils % (auto) 1.3 %; Hematocrit (blood only) 36.1 % (42-52); Immature Granulocytes # (auto) 0.38 K/uL (0.00-0.02); Immature Granulocytes % (auto) 2.9 %; Lymphocytes # (auto) 1.61 K/uL (1.2-3.4); Lymphocytes % (auto) 12.3 %; Mean Corpuscular Hemoglobin 30.5 pg (25-34); Mean Corpuscular Hgb Conc 33.2 g/dL (32-36); Mean Corpuscular Volume 91.9 fL (80-100); Mean Platelet Volume 8.7 fL (7.4-10.4); Monocytes # (auto) 1.43 K/uL (0.11-0.59); Monocytes % (auto) 10.9 %; Neutrophils # (auto) 9.52 K/uL (1.4-6.5); Neutrophils % (auto) 72.4 %; Nucleated RBC # (auto) 0.03 K/uL (0-0); Nucleated RBC % (auto) 0.2 %; Platelet Count 358 K/uL (130-400); RDW Coefficient of Variation 14.9 % (11.5-14.5); RDW Standard Deviation 50.2 fL (36.4-46.3); Red Blood Count 3.93 M/uL (4.7-6.1); White Blood Count 13.13 K/uL (4.8-10.8)
[2019-12-19 08:01] LABS: Albumin Level 1.8 gm/dl (3.4-5.0); BUN Creatinine Ratio 20.2 (10-20); Creatinine Clr Calc Pharmacy 108.5 ml/min; Est GFR (African American) 114.9; Est GFR (Non-African American) 99.2
[2019-12-19 08:03] LABS: Albumin Globulin Ratio 0.3 (0.9-2); Globulin 5.7 gm/dl (2.5-4.0); Total Protein 7.5 gm/dl (6.4-8.2)
[2019-12-19] MEDS: FINASTERIDE 5 MG TAB PO SCH (09:22)
[2019-12-19] MEDS: LACTOBACILLUS ACIDOPHILUS (FLORANEX) TAB PO SCH ×3 (09:22→17:27)
[2019-12-19] MEDS: METOPROLOL TARTRATE 50 MG TAB PO SCH ×2 (09:22→20:07)
[2019-12-19] MEDS: POTASSIUM CHLORIDE 20 MEQ TABCR PO SCH ×3 (09:22→20:06)
[2019-12-19] MEDS: FLUOXETINE HCL 20 MG CAP PO SCH (09:23)
[2019-12-19] MEDS: APIXABAN 5 MG TABLET PO SCH ×2 (09:23→20:06)
[2019-12-19] MEDS: ARIPIprazole 1 MG/ML ORAL SOLN 150 ML BTL PO SCH (09:23)
[2019-12-19] MEDS: EUCERIN CR 120 GM JAR EXT SCH ×2 (09:24→20:06)
[2019-12-19] MEDS: PETROLATUM 16 OZ JAR EXT SCH (09:24)
[2019-12-19] MEDS: MULTIVITAMIN TAB PO SCH (11:38)
[2019-12-19] MEDS: THIAMINE HCL 100 MG TAB PO SCH (11:39)
[2019-12-19] MEDS ORDERED: IOVERSOL 100ml IV ONE (11:47)
--- NOTE | 2019-12-19 12:02 | CT Scan Report ---
CT head/brain wo con CLINICAL HISTORY: lethargy, confusion COMPARISON STUDY: No previous studies for comparison. TECHNIQUE: Axial CT of the brain is performed from the vertex to the skull base. IV contrast was not administered for this examination. A dose lowering technique was utilized adhering to the principles of ALARA. CT DOSE: 965.34 mGy.cm FINDINGS: No intra or extra-axial mass lesions are visualized. There is no CT evidence of acute cortical infarc tion. There is no evidence of midline shift. There is no acute hemorrhage. No calvarial fractures ar e visualized. There is no evidence of pathologic ventricular dilatation. There is no evidence of acute sinusitis IMPRESSION: No acute intracranial findings ACT 112: Negative or not required by law. Electronically signed by: Mik Orr M.D. 12/19/2019 12:01 PM
--- NOTE | 2019-12-19 12:10 | CT Scan Report ---
CT OF THE CHEST WITH IV CONTRAST CLINICAL HISTORY: adenopathy in abdomen, look adenopathy in chest COMPARISON STUDY: Abdominal CT scan dated 12/15/2019, chest x-ray dated 12/15/2019 TECHNIQUE: Following the IV administration of 94 mL of Optiray-320, CT of the thorax was performed f rom the thoracic inlet to the lung bases. Images are reviewed in the axial, sagittal, and coronal lisa ruba. IV contrast was administered without complication. A dose lowering technique was utilized adher ing to the principles of ALARA. CT DOSE: FINDINGS: Thyroid: Imaged portions of the thyroid gland are normal in appearance. Thoracic aorta: The thoracic aorta is normal in course and caliber, noting standard 3-vessel arch gerber zoey. No aneurysm or dissection is seen. Pulmonary vasculature: The pulmonary trunk is normal in caliber. There are no central filling defects identified to suggest pulmonary embolus. Note that this examination was not protocoled for the evalu ation of pulmonary emboli. HEART: The heart is normal in size and configuration, without pericardial effusion. Lungs and pleural spaces: There is a small left pleural effusion and [id number] right pleural effusion. There is pulmonary emphysema. There are tree-in-bud opacities within the right upper lobe l ikely infectious/inflammatory. There are compressive lower lobe atelectatic changes. There is a small amount of mucous adherent to the trachea. There is a subsolid 5.7 mm lingular nodule. Mediastinum: There are shotty mediastinal lymph nodes which are not pathologically enlarged by size c riteria. There are borderline enlarged retrocrural lymph nodes. Mady: Hilar lymph nodes are the upper limits of normal in size. Axilla: There is no evidence of pathologic axillary lymphadenopathy Upper abdomen: Partially visualized upper abdominal viscera is within normal limits. Skeletal structures: There are no lytic or blastic osseous lesions. IMPRESSION: 1. No evidence of pathologic intrathoracic adenopathy by size criteria 2. Bilateral pleural effusions right greater than left 3. Bibasilar opacities likely representing compressive atelectasis 4. 5.7 mm subsolid lingular nodule. Current recommendations indicate no necessity of follow-up 5. Minimal tree-in-bud opacities within the right upper lobe, likely infectious/inflammatory ACT 112: Negative or not required by law. Electronically signed by: Mik Orr M.D. 12/19/2019 12:08 PM
[2019-12-19] MEDS: METOPROLOL TARTRATE 1 MG/ML VIAL IV PRN ×2 (15:10→20:05)
--- NOTE | 2019-12-19 16:11 | Hospitalist Progress Note ---
Date of Service December 19, 2019 Assessment & Plan (1) Atrial fibrillation with RVR: Not known history prior to residential but prior EKG in 2015 with confirmed diagnosis of this TSH WNL. TTE ordered - EF preserved, no wall motion abnormalities initially on Diltiazem drip, transitioned to Lopressor 50mg BID on 12/17 was stable this morning, after doing some therapy HR jumped to 140-150's again gave Lopressor 5mg IV and lopressor 25mg PO x 1 will increase Lopressor to 75mg BID might need to add back diltiazem drip if HR remains elevated over night on Eliquis for anticoagulation however, will need to change to Coumadin because [facility] does not cover Eliquis (2) Bacterial infection due to Streptococcus, group C: blood cultures with group C beta strep, bledsoe sensitive suspected source is skin as he has right thigh cellulitis and some chronic ulcers on lower legs no fever, WBC down to 13k, < 80% PMN continue Rocephin for now, will change to PO antibiotics on discharge repeat blood cultures on 12/17 with no growth thus far TTE showed no vegetations (3) Leukocytosis: source is cellulitis of the lower extremities. CT abdomen/pelvis with IV contrast without abdominal source CT chest with no infiltrate, small to moderate effusions likely from the fluid he got on admission UA does not show signs of UTI blood cultures with gram positive cocci - group C beta strep, bledsoe sensitive continue Rocephin repeat blood cultures on 12/17, follow out 48 hours, no growth thus far no vegetations seen on TTE if blood cultures persistently positive then consider JOAN (4) Generalized abdominal pain: Diarrheal illness now resolved CT abdomen/pelvis with IV contrast - no acute process (5) Cellulitis of right lower extremity: Questionable diagnosis given chronic venous changes, however elevated WBC and increased erythema and warmth on right compared to left side despite worse ulcers on left. Unable to explain leukocytosis otherwise. Blood cultures with beta strep, consistent with skin infection Ceftriaxone 2g IV daily, will need 14 days total from negative blood culture change to PO antibiotics on discharge (6) Venous ulcers of both lower extremities: Chronic. Unna boot used as outpatient at [facility] despite diagnosis of PVD. Consult wound care nurse for appropriate dressing while admitted. (7) Peripheral vascular disease: Unclear history of this. He is not on any antiplatelets or statin. US arterial Doppler, MARY BETH was noted to be normal (8) BPH (benign prostatic hyperplasia): Continue finasteride 5 mg p.o. daily. Monitor for urinary retention as not on alpha-1 ovidio. (9) Mixed incontinence: Notable history of this. (10) Depression: Continue fluoxetine 20 mg p.o. daily, aripiprazole 2 mg p.o. daily. 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, acting fatigued, inappropriate at times as he is urinating the bed the guards say that normally he is independent in the cherry so this would be unusual for him (12) Hypokalemia: resolved, 4.0 today stop PO replacement (13) DVT prophylaxis: Eliquis Admission and Anticipated Discharge Date Admission Date: December 15, 2019 Subjective patient remains very lethargic, very flat affect told the guard he had to urinate and by the time they brought him the urinal he had urinated in the bed unclear why he does not have more energy with the appropriate antibiotics elected to get CT head - no acute changed CT chest: bilateral pleural effusions, small to moderate with some effusions but no major changes, no pneumonia, no lymphadenopathy his HR was well controlled on the metoprolol 50mg BID, had him do some therapy to get his muscles moving this caused his HR to jump to 140-150's gave additional dose of metoprolol 25mg PO after Lopressor 5mg IV may need to add back drip or increase lopressor to 75mg BID Review of Systems Review of Systems: All systems reviewed & are unremarkable except as noted in Subjective Constitutional: + fatigue and + weakness; no fever, no chills and no sweats Respiratory: no cough and no dyspnea Cardiovascular: no chest pain and no edema Gastrointestinal: no abdominal pain, no nausea, no vomiting, no constipation and no diarrhea/loose stools Integumentary: + erythema (right leg, much improved) Physical Exam Constitutional: well developed, well nourished and comfortable; no acute distress Eyes: PERRL, conjunctivae normal, anicteric sclerae ENMT: external ear and nose normal, oropharynx normal Neck: trachea midline, no thyromegaly Respiratory: normal respiratory effort, lungs clear to auscultation Cardiovascular: Rate/Rhythm: + tachycardic and + irregularly irregular Heart Sounds: normal S1 and normal S2; no murmur Vessels: no JVD Extremities: normal capillary refill; no edema Gastrointestinal (Abdomen): normal bowel sounds, soft, nontender, no hepatosplenomegaly Musculoskeletal: Head/Neck/Chest: normocephalic, head atraumatic and neck supple Extremities: + abnormal strength (generalized weakness) Skin: + rash (right thigh) and + erythema (right thigh, less red today, no warmth, no tenderness); no wound Neurologic: patellar DTR's 2+ bilat, sensation intact and PERRL, EOMI, accommodation nl, no face palsy, no dysarthria Psychiatric: Orientation: alert and oriented x 3 (knows that he is in hospital due to cellulitis) Affect: + flat affect (very flat, slow to respond) Lymphatic: no cervical or axillary lymphadenopathy Results & Data Results & Data ([facility]) Vital Signs (Past 12 Hours) Vital Signs Temp Pulse Pulse Resp BP BP BP 12/19/19 15:36 37.3 C 152 H 23 118/85 12/19/19 15:10 156 H 112/78 12/19/19 11:27 36.8 C 99 H 16 112/70 12/19/19 08:29 100 H 12/19/19 07:01 89 16 106/60 Pulse Ox 12/19/19 15:36 96 12/19/19 15:10 12/19/19 11:27 96 12/19/19 08:29 12/19/19 07:01 96 Laboratory Results Laboratory Results - last 24 hr 12/19/19 12/19/19 07:09 07:09 WBC 13.13 H RBC 3.93 L Hgb 12.0 L Hct 36.1 L MCV 91.9 MCH 30.5 MCHC 33.2 RDW Std Deviation 50.2 H RDW Coeff of Benjamin 14.9 H Plt Count 358 MPV 8.7 Immature Gran % (Auto) 2.9 Neut % (Auto) 72.4 Lymph % (Auto) 12.3 Bradley % (Auto) 10.9 Eos % (Auto) 1.3 Baso % (Auto) 0.2 Neut # (Auto) 9.52 H Lymph # (Auto) 1.61 Bradley # (Auto) 1.43 H Eos # (Auto) 0.17 Baso # (Auto) 0.02 Immature Gran # (Auto) 0.38 H Absolute Nucleated RBC 0.03 H Nucleated RBC % (auto) 0.2 Sodium 139 Potassium 4.0 D Chloride 109 H Carbon Dioxide 27 Anion Gap 3.0 BUN 16 Creatinine 0.80 Est Cr Clr Drug Dosing 108.5 Est GFR ( Amer) 114.9 Est GFR (Non-Af Amer) 99.2 BUN/Creatinine Ratio 20.2 H Glucose 92 Calcium 8.0 L Total Bilirubin 1.0 AST 31 ALT 30 Alkaline Phosphatase 59 Total Protein 7.5 Albumin 1.8 L Globulin 5.7 H Albumin/Globulin Ratio 0.[address] head FINDINGS: No intra or extra-axial mass lesions are visualized. There is no CT evidence of acute cortical infarction. There is no evidence of midline shift. There is no acute hemorrhage. No calvarial fractures are visualized. There is no evidence of pathologic ventricular dilatation. There is no evidence of acute sinusitis IMPRESSION: No acute intracranial findings CT chest IMPRESSION: 1. No evidence of pathologic intrathoracic adenopathy by size criteria 2. Bilateral pleural effusions right greater than left 3. Bibasilar opacities likely representing compressive atelectasis 4. 5.7 mm subsolid lingular nodule. Current recommendations indicate no necessity of follow-up 5. Minimal tree-in-bud opacities within the right upper lobe, likely infectious/inflammatory Medications Administered Current Inpatient Medications Acetaminophen (Acetaminophen 325 Mg Tab) 650 mg PO Q4H PRN PRN Reason: Pain or Fever Stop: 01/14/20 17:14 Last Admin: 12/17/19 20:47 Dose: 650 mg Documented by: Apixaban (Apixaban 5 Mg Tablet) 5 mg PO BID [facility]YNNE Stop: 01/14/20 20:59 Last Admin: 12/19/19 20:06 Dose: 5 mg Documented by: Aripiprazole (Aripiprazole 1 Mg/Ml Oral Soln 150 Ml Btl) 2 mg PO DAILY [facility] Stop: 01/15/20 08:59 Last Admin: 12/19/19 09:23 Dose: 2 mg Documented by: Emollient Ointment (Petrolatum 16 Oz Jar) 1 oz EXT DAILY [facility] Stop: 01/17/20 08:59 Last Admin: 12/19/19 09:24 Dose: 1 oz Documented by: Finasteride (Finasteride 5 Mg Tab) 5 mg PO DAILY [facility] Stop: 01/15/20 08:59 Last Admin: 12/19/19 09:22 Dose: 5 mg Documented by: Fluoxetine HCl (Fluoxetine Hcl 20 Mg Cap) 20 mg PO DAILY [facility] Stop: 01/15/20 08:59 Last Admin: 12/19/19 09:23 Dose: 20 mg Documented by: Ceftriaxone Sodium 2,000 mg/ (Dextrose) 70 mls @ 100 mls/hr IV Q24H [facility]; Protocol Stop: 12/22/19 17:14 Last Infusion: 12/19/19 18:46 Dose: Infused Documented by: Lactobacillus Acidophilus (Lactobacillus Acidophilus (Floranex) Tab) 4 tab PO TIDM [facility] Stop: 01/15/20 07:59 Last Admin: 12/19/19 17:27 Dose: 4 tab Documented by: Metoprolol Tartrate (Metoprolol Tartrate 50 Mg Tab) 50 mg PO BID [facility] Stop: 01/17/20 20:59 Last Admin: 12/19/19 20:07 Dose: 50 mg Documented by: Metoprolol Tartrate (Metoprolol Tartrate 1 Mg/Ml Vial) 5 mg IV Q4 PRN PRN Reason: tachycardia Stop: 01/17/20 19:59 Last Admin: 12/19/19 20:05 Dose: 5 mg Documented by: Multi-Ingredient Cream (Eucerin Cr 120 Gm Jar) 1 appln EXT BID [facility] Stop: 01/16/20 20:59 Last Admin: 12/19/19 20:06 Dose: 1 appln Documented by: Multivitamins (Multivitamin Tab) 1 tab PO QAM [facility] Stop: 01/18/20 09:29 Last Admin: 12/19/19 11:38 Dose: 1 tab Documented by: Ondansetron HCl (Ondansetron Inj 2 Mg/Ml 2 Ml Vial) 4 mg IV Q6H PRN PRN Reason: Nausea Stop: 01/14/20 17:14 Potassium Chloride (Potassium Chloride 20 Meq Tabcr) 20 meq PO TID [facility] Stop: 01/16/20 13:59 Last Admin: 12/19/19 20:06 Dose: 20 meq Documented by: Thiamine HCl (Thiamine Hcl 100 Mg Tab) 100 mg PO QAM [facility] Stop: 01/18/20 09:29 Last Admin: 12/19/19 11:39 Dose: 100 mg Documented by: PG Care Time/CCT Total # of Minutes Spent Total Time Spent with Patient: Total time spent is greater than 50% in coordination of care (as documented) at patient's floor/unit and/or counseling patient: Coding Level of Care Code 17475 Subseq Hosp Care Lvl 3 Diagnoses Atrial fibrillation with RVR I48.91 Bacterial infection due to Streptococcus, group C A49.1 Leukocytosis D72.829 Generalized abdominal pain R10.84 Cellulitis of right lower extremity L03.115 Venous ulcers of both lower extremities I83.019; I83.029; L97.919; L97.929 Peripheral vascular disease I73.9 BPH (benign prostatic hyperplasia) N40.0 Mixed incontinence N39.46 Depression F32.9 Schizotypal personality disorder F21 Hypokalemia E87.6 DVT prophylaxis Z29.9
[2019-12-19] MEDS ORDERED: METOPROLOL TARTRATE 25 MG TAB PO ONE (16:30)
[2019-12-19] MEDS: cefTRIAXone SODIUM 2,000 MG in DEXTROSE 5% 50 ML IV SCH (18:02)
[2019-12-19] MEDS ORDERED: METOPROLOL TARTRATE 1 MG/ML VIAL IV STA (21:28)
[2019-12-19] MEDS ORDERED: SODIUM CHLORIDE 0.9% 1000ML 500 ML IV ONE (21:28)
--- NOTE | 2019-12-19 23:34 | Communication Note ---
Date of Service: December 19, 2019 Notified by nursing that pt had a sustained HR of 140s-150s. Pt had a rhythm of atrial flutter on telemetry. Pt was asymptomatic however, sitting up in bed conversant with guard in the room. One dose of IV lopressor 5mg was given with a fluid bolus on hold in case BP dropped inadequately. No fluid was needed when dose was given. Notified later in the night that pt had spontaneously converted to NSR and was rate controlled. Resident Activity Tracking Resident Involvement: Chemistry Tutor Coverage Note Care Provided: Adult Hospital Medicine
[2019-12-20] MEDS: METOPROLOL TARTRATE 1 MG/ML VIAL IV PRN (00:05)
[2019-12-20 07:19] LABS: INR 1.2 (0.9-1.1); Prothrombin Time 12.7 Seconds (9.0-12.0)
[2019-12-20] MEDS: THIAMINE HCL 100 MG TAB PO SCH (08:32)
[2019-12-20] MEDS: METOPROLOL TARTRATE 25 MG TAB PO SCH ×2 (08:32→20:40)
[2019-12-20] MEDS: MULTIVITAMIN TAB PO SCH (08:33)
[2019-12-20] MEDS: ARIPIprazole 1 MG/ML ORAL SOLN 150 ML BTL PO SCH (08:33)
[2019-12-20] MEDS: LACTOBACILLUS ACIDOPHILUS (FLORANEX) TAB PO SCH ×3 (08:33→17:22)
[2019-12-20] MEDS: FINASTERIDE 5 MG TAB PO SCH (08:33)
[2019-12-20] MEDS: FLUOXETINE HCL 20 MG CAP PO SCH (08:34)
[2019-12-20] MEDS: EUCERIN CR 120 GM JAR EXT SCH ×2 (08:52→20:40)
[2019-12-20] MEDS: PETROLATUM 16 OZ JAR EXT SCH (08:52)
[2019-12-20 11:01] LABS: Basophils # (auto) 0.02 K/uL (0-0.2); Basophils % (auto) 0.2 %; Hematocrit (blood only) 32.6 % (42-52); Hemoglobin 11.1 g/dL (14.0-18.0); Immature Granulocytes # (auto) 0.26 K/uL (0.00-0.02); Immature Granulocytes % (auto) 2.6 %; Lymphocytes % (auto) 12.8 %; Mean Corpuscular Volume 91.1 fL (80-100); Mean Platelet Volume 8.6 fL (7.4-10.4); Monocytes % (auto) 8.9 %; Neutrophils # (auto) 7.58 K/uL (1.4-6.5); Neutrophils % (auto) 74.5 %; Platelet Count 364 K/uL (130-400); RDW Coefficient of Variation 14.8 % (11.5-14.5); RDW Standard Deviation 49.5 fL (36.4-46.3); Red Blood Count 3.58 M/uL (4.7-6.1); White Blood Count 10.16 K/uL (4.8-10.8)
[2019-12-20 11:05] LABS: BUN Creatinine Ratio 25.8 (10-20); Calcium 7.6 mg/dl (8.5-10.1); Creatinine Clr Calc Pharmacy 142.3 ml/min; Est GFR (African American) 128.5; Est GFR (Non-African American) 110.9; Potassium 3.9 mmol/L (3.5-5.1)
[2019-12-20] MEDS ORDERED: WARFARIN SOD 5 MG TAB PO SCH (16:00)
[2019-12-20] MEDS: cefTRIAXone SODIUM 2,000 MG in DEXTROSE 5% 50 ML IV SCH (17:22)
--- NOTE | 2019-12-20 20:35 | Hospitalist Progress Note ---
Date of Service December 20, 2019 Assessment & Plan (1) Atrial fibrillation with RVR: rate controlled, anticoagulated. may need to continue to titrate lopressor but rate acceptable at this time (2) Bacterial infection due to Streptococcus, group C: blood cultures with group C beta strep, bledsoe sensitive suspected source is skin as he has right thigh cellulitis and some chronic ulcers on lower legs no fever, WBC down to 13k, < 80% PMN continue Rocephin for now, will consider change to PO antibiotics on discharge repeat blood cultures on 12/17 with no growth thus far TTE showed no vegetations (3) Leukocytosis: source is cellulitis of the lower extremities. CT abdomen/pelvis with IV contrast without abdominal source CT chest with no infiltrate, small to moderate effusions likely from the fluid h e got on admission UA does not show signs of UTI blood cultures with gram positive cocci - group C beta strep, bledsoe sensitive continue Rocephin with anticipation of possible change to PO repeat blood cultures on 12/17, follow out 48 hours, no growth thus far no vegetations seen on TTE if blood cultures persistently positive then consider JOAN (not appearing to be the case) (4) Generalized abdominal pain: Diarrheal illness now resolved CT abdomen/pelvis with IV contrast - no acute process no c/o pain today (5) Cellulitis of right lower extremity: Questionable diagnosis given chronic venous changes, however elevated WBC and increased erythema and warmth on right compared to left side despite worse ulcers on left. Unable to explain leukocytosis otherwise. Blood cultures with beta strep, consistent with skin infection Ceftriaxone 2g IV daily, will need 14 days total abx from negative blood culture change to PO antibiotics on discharge (6) Venous ulcers of both lower extremities: Chronic. Unna boot used as outpatient at [facility] despite diagnosis of PVD. wound care (7) Peripheral vascular disease: Unclear history of this. He is not on any antiplatelets or statin. US arterial Doppler, MARY BETH was noted to be normal (8) BPH (benign prostatic hyperplasia): Continue finasteride 5 mg p.o. daily. Monitor for urinary retention as not on alpha-1 ovidio. (9) Mixed incontinence: Notable history of this. (10) Depression: Continue fluoxetine 20 mg p.o. daily, aripiprazole 2 mg p.o. daily. 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 (12) Hypokalemia: resolved (13) DVT prophylaxis: Eliquis Admission and Anticipated Discharge Date Admission Date: December 15, 2019 Subjective RVR last night didn't feel it feeling ok overall minimal hx due to affect but denies any complaints Review of Systems Review of Systems: All systems reviewed & are unremarkable except as noted in HPI & below very limited HPI/ROS related to affect Physical Exam Physical Exam: gen awake nad heent nc at mmm breathing unlabored no accessory muscles good effort skin no rashes no pallor or icterus neuro no focal deficits Results & Data Results & Data ([facility]) Vital Signs (Past 12 Hours) Vital Signs Temp Pulse Resp BP BP Pulse Ox 12/20/19 19:24 99.9 F H 85 16 149/79 H 96 12/20/19 15:38 98.4 F 83 18 120/74 95 12/20/19 11:53 98.4 F 84 20 108/67 95 12/20/19 08:34 98.2 F 87 16 114/74 91 PG Care Time/CCT Total # of Minutes Spent Total Time Spent with Patient: Total time spent is greater than 50% in coordination of care (as documented) at patient's floor/unit and/or counseling patient: Coding Level of Care Code 30505 Subseq Hosp Care Lvl 3 Diagnoses Atrial fibrillation with RVR I48.91 Bacterial infection due to Streptococcus, group C A49.1 Leukocytosis D72.829 Generalized abdominal pain R10.84 Cellulitis of right lower extremity L03.115 Venous ulcers of both lower extremities I83.019; I83.029; L97.919; L97.929 Peripheral vascular disease I73.9 BPH (benign prostatic hyperplasia) N40.0 Mixed incontinence N39.46 Depression F32.9 Schizotypal personality disorder F21 Hypokalemia E87.6 DVT prophylaxis Z29.9
[2019-12-20] MEDS: ACETAMINOPHEN 325 MG TAB PO PRN (20:40)
[2019-12-21 06:47] LABS: INR 1.2 (0.9-1.1); Prothrombin Time 12.2 Seconds (9.0-12.0)
[2019-12-21] MEDS: METOPROLOL TARTRATE 25 MG TAB PO SCH (08:42)
[2019-12-21] MEDS: ARIPIprazole 1 MG/ML ORAL SOLN 150 ML BTL PO SCH (08:42)
[2019-12-21] MEDS: LACTOBACILLUS ACIDOPHILUS (FLORANEX) TAB PO SCH ×2 (08:42→11:59)
[2019-12-21] MEDS: FLUOXETINE HCL 20 MG CAP PO SCH (08:43)
[2019-12-21] MEDS: MULTIVITAMIN TAB PO SCH (08:43)
[2019-12-21] MEDS: FINASTERIDE 5 MG TAB PO SCH (08:43)
[2019-12-21] MEDS: THIAMINE HCL 100 MG TAB PO SCH (08:43)
[2019-12-21] MEDS: PETROLATUM 16 OZ JAR EXT SCH (08:44)
[2019-12-21] MEDS: EUCERIN CR 120 GM JAR EXT SCH (08:44)
--- NOTE | 2019-12-21 14:02 | Discharge Summary ---
Date of Service December 21, 2019 Admission HPI Per Admitting Provider Anshu Michelle is a 59-year-old male who presents to the ER from [facility] due to atrial fibrillation with rapid ventricular rate. This is on a background of 4 days of nausea, loose stool, abdominal pain. His diarrhea resolved 2 days ago. Not watery, no bright red blood, no melena. Nausea but with no vomiting. No fever, chills or cough. Sent to [facility] today due to RUQ pain noted on exam at alf but also noted to be tachycardic with irregular heart rate. He also a longstanding history of chronic venous ulcers. This was more recently treated with an Unna boot starting on November 07. He was recently treated with antibiotics - Clindamycin initially then switched to Bactrim but has been off antibiotics since mid-October. The patient reports his legs actually look improved from previously although is unsure about the erythema. He denies any fevers, chills or worsening pain in his legs. No known history of atrial fibrillation per [facility] although listed as historical diagnosis in [employer] and I believe this was entered as a diagnosis for a 30 day event monitor back in 2014 that was never completed. Patient has no recollection of this. Principal Diagnosis Streptococcal bacteremia, sepsis Discharge Exam Constitutional well developed, well nourished and comfortable; no acute distress Eyes PERRL, conjunctivae normal, anicteric sclerae ENMT external ear and nose normal, oropharynx normal Neck trachea midline, no thyromegaly Respiratory normal respiratory effort, lungs clear to auscultation Cardiovascular Rate/Rhythm: regular rate and regular rhythm Heart Sounds: normal S1 and normal S2; no murmur Vessels: no JVD Extremities: normal capillary refill; no edema Gastrointestinal (Abdomen) normal bowel sounds, soft, nontender, no hepatosplenomegaly Musculoskeletal no cyanosis or clubbing, extremities motor strength 5/5 Head/Neck/Chest: normocephalic, head atraumatic and neck supple Extremities: + abnormal strength (generalized weakness) Skin + erythema (right thigh, nearly gone, no tenderness, no warmth); no wound Neurologic patellar DTR's 2+ bilat, sensation intact and PERRL, EOMI, accommodation nl, no face palsy, no dysarthria Psychiatric Orientation: alert and oriented x 3 (knows that he is in hospital due to cellulitis) Affect: + flat affect (very flat, slow to respond) Lymphatic no cervical or axillary lymphadenopathy Discharge Data Allergies Allergy/AdvReac Type Severity Reaction Status Date / Time Penicillins Allergy Unknown Unknown Verified 12/22/19 17:24 Consultations 12/15/19 13:53 ED Decision to Admit Stat Ordered Studies 12/15/19 16:55 CT abd pelvis IV con only Stat 12/15/19 17:15 US ankle/brachial index comp Routine 12/19/19 10:56 CT chest w con Routine CT head/brain wo con Routine Hospital Course (1) Atrial fibrillation with RVR: rate controlled, anticoagulated. converted to sinus rhythm will continue on Lopressor 50mg BID started on Coumadin 5mg daily, INR is 1.2, continue to manage at [facility] (2) Bacterial infection due to Streptococcus, group C: blood cultures with group C beta strep, bledsoe sensitive suspected source is skin as he has right thigh cellulitis and some chronic ulcers on lower legs no fever, WBC down to 10k, < 80% PMN continue Rocephin while inpatient, change to Keflex 500mg BID on discharge repeat blood cultures on 12/17 with no growth at 48 hours continue the Keflex 14 days from 12/17 TTE showed no vegetations, no clinical signs of endocarditis (3) Leukocytosis: source is cellulitis of the lower extremities. CT abdomen/pelvis with IV contrast without abdominal source CT chest with no infiltrate, small to moderate effusions likely from the fluid he got on admission UA does not show signs of UTI blood cultures with gram positive cocci - group C beta strep, bledsoe sensitive continue Rocephin with anticipation of possible change to PO repeat blood cultures on 12/17, follow out 48 hours, no growth thus far no vegetations seen on TTE if blood cultures persistently positive then consider JOAN (not appearing to be the case) (4) Generalized abdominal pain: Diarrheal illness now resolved CT abdomen/pelvis with IV contrast - no acute process no c/o pain of note, patient had lymphadenopathy in abdomen, could be reactive vs lymphoma? checked a CT of the chest, no adenopathy noted in chest recommend repeat CT abdomen/pelvis in several weeks to document whether the adenopathy has resolved (5) Cellulitis of right lower extremity: Questionable diagnosis given chronic venous changes, however elevated WBC and increased erythema and warmth on right compared to left side despite worse ulcers on left. Unable to explain leukocytosis otherwise. Blood cultures with beta strep, consistent with skin infection Ceftriaxone 2g IV daily, will need 14 days total abx from negative blood culture which was on 12/17 change to PO antibiotics on discharge, Keflex (6) Venous ulcers of both lower extremities: Chronic. Stivena boot used as outpatient at [facility] despite diagnosis of PVD. wound care (7) Peripheral vascular disease: Unclear history of this. He is not on any antiplatelets or statin. US arterial Doppler, MARY BETH was noted to be normal (8) BPH (benign prostatic hyperplasia): Continue finasteride 5 mg p.o. daily. Monitor for urinary retention as not on alpha-1 ovidio. (9) Mixed incontinence: Notable history of this. (10) Depression: Continue fluoxetine 20 mg p.o. daily, aripiprazole 2 mg p.o. daily. 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 FIB WITH RVR Discharge Diagnosis: Atrial fibrillation with RVR Steptococcal bacteremia Cellulitis Abdominal lymphadenopathy Condition on Discharge: Fair Goals: complete course of Keflex follow INR until Coumadin therapeutic Activity: Resume your previous activity Non-emergency contact: Primary Care Provider Call non-emergency contact if: you have any medication questions and your symptoms worsen Follow-up/Referrals: [facility] [Primary Care Provider] - (this week) Diet: Regular Addtl Attending Provider Instructions: Medications: - KEFLEX: 500mg twice a day, take for 11 more days to complete treatment of sepsis - WARFARIN: currently on 5mg daily, today is only second day, INR is 1.2 - METOPROLOL: 50mg twice a day for heart rate control, he converted to normal sinus rhythm - THIAMINE and MULTIVITAMIN: added by nutrition while here Sepsis, Streptococcal bacteremia likely due to skin ulcers, cellulitis treated with Rocephin repeat blood cultures from 12/17 show no growth complete a course of Keflex echocardiogram negative for vegetations CT chest with no pneumonia Afib with RVR: heart rates were up to 150-160's initially treated with diltiazem drip initially, converted to Lopressor BID now he converted to sinus rhythm, HR in the 60-70 range discharge on Lopressor 50mg BID, Coumadin INR is 1.2 today but he just started Coumadin on 12/19, initially on Eliquis but is non-formulary CT ABDOMEN/PELVIS WITH ADENOPATHY: could be infectious/inflammatory or could be lymphoma recommend getting repeat CT abdomen/pelvis with IV contrast in two weeks time to document resolution if adenopathy still present then would need biopsy arranged, likely at a hospital with IR services there is now IR at [facility] which would be the closest to [place] Pending Studies at Discharge: No Stand-Alone Forms: My [facility] Skilled Items Patient informed of condition?: Yes Discharge Level of Care: Other Communicable Disease: No Discharge Prognosis: Stable Lines: None Urinary Catheter: No Medications and DC Order Prescriptions: New multivitamin [Daily-Vivien] Tablet 1 tab PO QAM 30 Days Qty: 30 RF: 0 thiamine HCl (vitamin B1) [Vitamin B-1] 100 mg Tablet 100 mg PO QAM 30 Days Qty: 30 RF: 0 cephalexin 500 mg Capsule 500 mg PO BID 11 Days Qty: 22 RF: 0 warfarin 5 mg Tablet 5 mg PO DAILY@1600 30 Days Qty: 30 RF: 0 metoprolol tartrate 25 mg Tablet 50 mg PO BID 30 Days Qty: 120 RF: 3 Continued vitamin A and D Ointment 1 applic TOPICAL DAILY RF: 0 fluoxetine 20 mg Capsule 20 mg PO DAILY RF: 0 aripiprazole 2 mg Tablet 2 mg PO DAILY RF: 0 Discharge Orders: Discharge Order (Routine); Ordered 12/21/19 Ordered By: Cuate Patrick Admission Data Admit Date/Time: 12/15/19 16:54 Attending Provider: Cuate Patrick Admit Provider: Marcus Green Primary Care Provider: Maciej MCCLURE Other Providers: Marcus Green Other Interventions: Discharge Summary Assessment (RN) Last Done: 12/21/19 14:56 Coding Level of Care Code D/C Day Management >30 mins Diagnoses Atrial fibrillation with RVR I48.91 Bacterial infection due to Streptococcus, group C A49.1 Leukocytosis D72.829 Generalized abdominal pain R10.84 Cellulitis of right lower extremity L03.115 Venous ulcers of both lower extremities I83.019; I83.029; L97.919; L97.929 Peripheral vascular disease I73.9 BPH (benign prostatic hyperplasia) N40.0 Mixed incontinence N39.46 Depression F32.9 Schizotypal personality disorder F21 Hypokalemia E87.6
[2019-12-21] MEDS ORDERED: cephALEXin 500MG HOME PACK PO ONE (15:00)
[2019-12-21] MEDS ORDERED: cephALEXin 500 MG CAP PO SCH (21:00)
--- NOTE | 2019-12-22 19:15 | History & Physical Report ---
Date of Service December 22, 2019 Assessment & Plan Admission and Anticipated Discharge Date Admission Date: December 15, 2019 History of Present Illness Primary Care Provider: REN Wing Allergies Allergy/AdvReac Type Severity Reaction Status Date / Time Penicillins Allergy Unknown Unknown Verified 12/22/19 17:24 Home Medications Home Medications Medication Instructions Recorded Confirmed Type aripiprazole 2 mg PO DAILY 12/15/19 12/15/19 History fluoxetine 20 mg PO DAILY 12/15/19 12/15/19 History vitamin A and D [A and D] 1 applic TOPICAL DAILY 12/15/19 12/15/19 History cephalexin 500 mg PO BID 11 Days #22 cap 12/21/19 12/22/19 Rx metoprolol tartrate 50 mg PO BID 30 Days #120 tab 12/21/19 12/22/19 Rx multivitamin [Daily-Vivien] 1 tab PO QAM 30 Days #30 tab 12/21/19 12/22/19 Rx thiamine HCl (vitamin B1) [Vitamin 100 mg PO QAM 30 Days #30 tab 12/21/19 12/22/19 Rx B-1] warfarin 5 mg PO DAILY@1600 30 Days #30 tab 12/21/19 12/22/19 Rx Past Med/Surg History Medical History Alcoholism BPH (benign prostatic hyperplasia) Depression Generalized abdominal pain Mixed incontinence Peripheral vascular disease Schizotypal personality disorder Venous ulcers of both lower extremities Social History Smoking Status: Former smoker Tobacco Type: Cigarettes Second Hand Exposure: Yes; Hx Alcohol Use: No Hx Substance Use: No Preferred Language: Cymro Communication Ability: Effective Development Writer Required: No Beliefs That Will Affect Care: None Current Living Situation: Other Current Living Situation Comment: Inmate at [facility] Feels Safe at Home: Yes Assistive Devices: None Code Status & VTE Plan VTE Prophylaxis Plan VTE Prophylaxis will be ordered: Yes
[2019-12-22] MEDS ORDERED: WARFARIN SOD 10 MG TAB PO ONE (19:37)
--- NOTE | 2020-01-02 08:15 | Coding Query ---
PRESENT ON ADMISSION QUERY To promote full compliance with coding requirements relating to pateint care, physician participation is requested in all cases of slab worker uncertainty. Please assist us with the question(s) below: Please place an X within the parenthesis (x). The following diagnosis listed in this patient's medical record requires physician assistance to determine if they were present on admission (POA) or not. Please advise for each diagnosis whether it was present on admission, not present on admission, or if it was clinically undetermined. 1. Sepsis (x ) Present On Admission ( ) Not Present On Admission ( ) Clinically Undetermined Thank you! Maribel Junior *Definition of the present on admission (POA)-Present on admission is defined as present at the time the order for inpatient admission occurs. Conditions that develop during an outpatient encounter prior to a written order for inpatient admission (including emergency department, observation, or outpatient surgery) are considered present on admission. HENRID
== END 2019-12-21 15:20 | DRG 872 ==
LOC: ED 12:06 → 2S 16:21 → SUATTDRO 16:54
DX: F32.9 Major depressive disorder, single episode, unspecified; Z79.899 Other long term (current) drug therapy; N40.1 Benign prostatic hyperplasia with lower urinary tract symptoms; N39.46 Mixed incontinence; F17.290 Nicotine dependence, other tobacco product, uncomplicated; E87.6 Hypokalemia; F21 Schizotypal disorder; I73.9 Peripheral vascular disease, unspecified; A41.9 Sepsis, unspecified organism; I48.91 Unspecified atrial fibrillation; L03.115 Cellulitis of right lower limb

== ENCOUNTER 2019-12-22 16:15 | Inpatient (IN) ==
[2019-12-22] MEDS ORDERED: SODIUM CHLORIDE 0.9% 1000ML 1,000 ML IV SCH (16:30)
--- NOTE | 2019-12-22 16:48 | Emergency Department Note ---
Impression & Plan Pulmonary emboli ED Provider Note NAME: JUSTINO [id number] SHERI AGE: 59 SEX: M : 1960 ARRIVES VIA: Ambulance INFORMANT: Patient, ED PROVIDER(S): Elieser Reyes DO CHIEF COMPLAINT: Fever HPI: The patient is a 59-year-old male who presented to the emergency department from the retirement for multiple complaints. The patient himself offers no complaints. He denies having any cough. He denies having any abdominal pain or fever. He denies having any lower extremity swelling or pain. Reportedly the patient was found to have a fever as well as hypoxia prior to arrival at the [facility]. The prehospital personnel state that the patient was not complaining of anything and has no complaints at this time. The patient was recently discharged from our facility. He has a reported negative COVID swab. He denies having any cough or difficulty breathing. ROS: See above HPI for pertinent positives & negatives. A total of 10 systems reviewed and were otherwise negative. PAST MEDICAL HISTORY: See Below PAST SURGICAL HISTORY: See Below FAMILY HISTORY: See Below SOCIAL HISTORY: See Below HOME MEDICATIONS: See Below ALLERGIES: See Below VITALS: See Below PHYSICAL EXAMINATION: GENERAL: Patient is awake alert in no acute distress patient is resting comfortably and showing no signs of anxiety EYES: The conjunctivae are clear. The pupils are round and reactive. EARS, NOSE, MOUTH AND THROAT: The nose is without any evidence of any deformity. NECK: The neck is nontender and supple. RESPIRATORY: Normal respiratory effort is noted there is no evidence of wheezing rhonchi or rales CARDIOVASCULAR: Regular rate and rhythm noted there no murmurs rubs or gallops normal S1 normal S2. GASTROINTESTINAL: The abdomen is soft. Abdomen is nontender. MUSCULOSKELETAL/EXTREMITIES: There is no evidence of gross deformity full range of motion is noted in the hips and shoulders. SKIN: There is no obvious evidence of any rash. There are no petechiae, pallor or cyanosis noted. NEUROLOGIC: Patient is awake alert and oriented x3 strength is symmetric patellar reflexes are 2+ bilaterally MEDICAL DECISION MAKING: The patient is a 59-year-old male who presented to the emergency department for an evaluation of difficulty breathing. The patient denies any complaints at this time however when he was at the retirement he was complaining of having difficulty breathing and had pleurisy. The patient was noted to have a low- grade fever as well as hypoxia at the retirement. When he arrived at the emergency department his vital signs were not reflective of severe hypoxia or extremitas. I discussed the patient's laboratory and radiographic studies with him. He was found to have signs of pulmonary embolism on CT of the chest. For this reason I discussed his case with the on-call [facility] hospitalist group. They have agreed to evaluate the patient in the emergency department for further management and disposition. The patient was started on IV heparin. Triage Nursing notes reviewed. Prior medical records reviewed Vital Signs: reviewed and remarkable for no significant abnormalities Differential diagnosis: Viral syndrome, otitis, pharyngitis, pneumonia, influenza, meningitis, urinary tract infection, sepsis, bacteremia, as well as other pathologies. ER treatment provided: See below Diagnostics interpreted by me: ECG: EKG was obtained in the emergency department. My interpretation is normal sinus rhythm at 83 bpm. PVCs were noted. Inferior T wave inversions were noted. This was compared to a tracing from 12/15/2019. Sinus rhythm has replaced atrial fibrillation. Cardiac Monitoring: An order was placed for continuous cardiac monitoring. The monitor shows a rate of 95 bpm with sinus rhythm. Laboratory studies: As stated above and show below. Imaging studies: See below Consultation(s): I discussed this case with the [facility] group. ED COURSE: Procedures: none PDMP:reviewed and no issues Critical Care: I have personally spent greater than 45 minutes of critical care time in the direct management of this patient. This includes bedside care, interpretation of diagnostic studies, and testing, discussion with consultants, patient, and family members, and other required patient management activities. This 45 minutes is in excess of all separately billable procedures. Past Med/Surg History Medical History Alcoholism Atrial fibrillation with RVR BPH (benign prostatic hyperplasia) Depression Mixed incontinence Peripheral vascular disease Schizotypal personality disorder Venous ulcers of both lower extremities Social History Smoking Status: Former smoker Tobacco Type: Cigarettes Second Hand Exposure: Yes; Hx Alcohol Use: No Hx Substance Use: No Preferred Language: Marshallese Communication Ability: Effective Pediatric Psychologist Required: No Beliefs That Will Affect Care: None Current Living Situation: Other Current Living Situation Comment: Inmate at [facility] Feels Safe at Home: Yes Assistive Devices: None Allergies Allergies Allergy/AdvReac Type Severity Reaction Status Date / Time Penicillins Allergy Unknown Unknown Verified 12/22/19 17:24 Home Meds Home Medications Medication Instructions Recorded Confirmed aripiprazole 2 mg PO DAILY 12/15/19 12/22/19 fluoxetine 20 mg PO DAILY 12/15/19 12/22/19 vitamin A and D 1 applic TOPICAL DAILY 12/15/19 12/22/19 Previous Rx's Medication Instructions Recorded cephalexin 500 mg PO BID 11 Days #22 cap 12/21/19 metoprolol tartrate 50 mg PO BID 30 Days #120 tab 12/21/19 multivitamin [Daily-Vivien] 1 tab PO QAM 30 Days #30 tab 12/21/19 thiamine HCl (vitamin B1) [Vitamin 100 mg PO QAM 30 Days #30 tab 12/21/19 B-1] warfarin 5 mg PO DAILY@1600 30 Days #30 tab 12/21/19 Results & Data (ED) Vital Signs Vital Signs - 24 hr 12/22/19 16:21 12/22/19 16:23 12/22/19 17:00 Temperature 36.3 C L Temperature Source Oral Pulse Rate 81 86 76 Pulse Rate from SpO2 Sensor 76 73 Pulse Rhythm Regular Pulse Strength Normal Respiratory Rate 23 16 23 Respiratory Effort / Characteristics Non-Labored Spontaneous Respiratory Depth Normal Respiratory Pattern Regular Blood Pressure 105/63 105/63 Blood Pressure Mean 71 77 Blood Pressure Position Lying Pulse Oximetry 96 98 96 Oxygen Delivery Method Room Air Sepsis Recent Fever Within 48 Hours No Sepsis New/Unexplained Change in Mental Status N/A Sepsis Action Taken by Nursing No Action Required 12/22/19 18:15 12/22/19 18:30 12/22/19 18:45 Temperature Temperature Source Pulse Rate 89 75 69 Pulse Rate from SpO2 Sensor 88 75 68 Pulse Rhythm Pulse Strength Respiratory Rate 26 H 26 H Respiratory Effort / Characteristics Respiratory Depth Respiratory Pattern Blood Pressure 129/65 103/60 114/62 Blood Pressure Mean 83 65 88 Blood Pressure Position Pulse Oximetry 98 97 97 Oxygen Delivery Method Sepsis Recent Fever Within 48 Hours Sepsis New/Unexplained Change in Mental Status Sepsis Action Taken by Nursing 12/22/19 19:00 12/22/19 19:15 12/22/19 19:30 Temperature Temperature Source Pulse Rate 75 73 73 Pulse Rate from SpO2 Sensor 72 70 73 Pulse Rhythm Pulse Strength Respiratory Rate 26 H Respiratory Effort / Characteristics Respiratory Depth Respiratory Pattern Blood Pressure 110/61 114/68 103/63 Blood Pressure Mean 67 74 72 Blood Pressure Position Pulse Oximetry 96 98 96 Oxygen Delivery Method Sepsis Recent Fever Within 48 Hours Sepsis New/Unexplained Change in Mental Status Sepsis Action Taken by Nursing 12/22/19 19:45 Temperature Temperature Source Pulse Rate 77 Pulse Rate from SpO2 Sensor 76 Pulse Rhythm Pulse Strength Respiratory Rate Respiratory Effort / Characteristics Respiratory Depth Respiratory Pattern Blood Pressure 110/59 L Blood Pressure Mean 79 Blood Pressure Position Pulse Oximetry 96 Oxygen Delivery Method Sepsis Recent Fever Within 48 Hours Sepsis New/Unexplained Change in Mental Status Sepsis Action Taken by Long Term Medications Current Medication List: was personally reviewed by me Laboratory Data Attestation: I reviewed the patient's lab results. Result diagrams: 12/22/19 16:42 12/22/19 16:42 Lab Results 12/22/19 12/22/19 12/22/19 Range/Units 16:42 16:42 16:42 WBC (4.8-10.8) K/uL RBC (4.7-6.1) M/uL Hgb (14.0-18.0) g/dL Hct (42-52) % MCV (80-100) fL MCH (25-34) pg MCHC (32-36) g/dL RDW Std Deviation (36.4-46.3) fL RDW Coeff of Benjamin (11.5-14.5) % Plt Count (130-400) K/uL MPV (7.4-10.4) fL Immature Gran % (Auto) % Neut % (Auto) % Lymph % (Auto) % [place] % (Auto) % Eos % (Auto) % Baso % (Auto) % Neut # (Auto) (1.4-6.5) K/uL Lymph # (Auto) (1.2-3.4) K/uL [place] # (Auto) (0.11-0.59) K/uL Eos # (Auto) (0-0.5) K/uL Baso # (Auto) (0-0.2) K/uL Immature Gran # (Auto) (0.00-0.02) K/uL ESR 78 H (0-14) mm/hr PT 13.2 H (9.0-12.0) Seconds INR 1.3 H (0.9-1.1) APTT 28.4 (21.0-31.0) Seconds PTT Ratio 1.0 D-Dimer 4710 H* (0-500) ug/L FEU Sodium 134 L (136-145) mmol/L Potassium 3.8 (3.5-5.1) mmol/L Chloride 103 (98-107) mmol/L Carbon Dioxide 24 (21-32) mmol/L Anion Gap 7.0 (3-11) BUN 14 (7-18) mg/dl Creatinine 0.66 (0.6-1.4) mg/dl Est Cr Clr Drug Dosing 108.1 ml/min Est GFR ( Amer) 124.4 Est GFR (Non-Af Amer) 107.3 BUN/Creatinine Ratio 21.2 H (10-20) Glucose 102 H (70-99) mg/dl Calcium 7.8 L (8.5-10.1) mg/dl Total Bilirubin 0.8 (0.2-1) mg/dl AST 45 H (15-37) U/L ALT 46 (12-78) U/L Alkaline Phosphatase 73 (45-117) U/L Troponin I < 0.015 (0-0.045) ng/ml C-Reactive Protein 11.40 H (0-0.29) mg/dl Total Protein 8.0 (6.4-8.2) gm/dl Albumin 2.0 L (3.4-5.0) gm/dl Globulin 6.0 H (2.5-4.0) gm/dl Albumin/Globulin Ratio 0.3 L (0.9-2) Procalcitonin (0-0.5) ng/ml 12/22/19 12/22/19 Range/Units 16:42 16:42 WBC 10.23 (4.8-10.8) K/uL RBC 4.12 L (4.7-6.1) M/uL Hgb 12.6 L (14.0-18.0) g/dL Hct 37.0 L (42-52) % MCV 89.8 (80-100) fL MCH 30.6 (25-34) pg MCHC 34.1 (32-36) g/dL RDW Std Deviation 47.1 H (36.4-46.3) fL RDW Coeff of Benjamin 14.3 (11.5-14.5) % Plt Count 391 (130-400) K/uL MPV 8.2 (7.4-10.4) fL Immature Gran % (Auto) 0.9 % Neut % (Auto) 70.8 % Lymph % (Auto) 20.9 % [place] % (Auto) 6.9 % Eos % (Auto) 0.4 % Baso % (Auto) 0.1 % Neut # (Auto) 7.24 H (1.4-6.5) K/uL Lymph # (Auto) 2.14 (1.2-3.4) K/uL [place] # (Auto) 0.71 H (0.11-0.59) K/uL Eos # (Auto) 0.04 (0-0.5) K/uL Baso # (Auto) 0.01 (0-0.2) K/uL Immature Gran # (Auto) 0.09 H (0.00-0.02) K/uL ESR (0-14) mm/hr PT (9.0-12.0) Seconds INR (0.9-1.1) APTT (21.0-31.0) Seconds PTT Ratio D-Dimer (0-500) ug/L FEU Sodium (136-145) mmol/L Potassium (3.5-5.1) mmol/L Chloride (98-107) mmol/L Carbon Dioxide (21-32) mmol/L Anion Gap (3-11) BUN (7-18) mg/dl Creatinine (0.6-1.4) mg/dl Est Cr Clr Drug Dosing ml/min Est GFR ( Amer) Est GFR (Non-Af Amer) BUN/Creatinine Ratio (10-20) Glucose (70-99) mg/dl Calcium (8.5-10.1) mg/dl Total Bilirubin (0.2-1) mg/dl AST (15-37) U/L ALT (12-78) U/L Alkaline Phosphatase (45-117) U/L Troponin I (0-0.045) ng/ml C-Reactive Protein (0-0.29) mg/dl Total Protein (6.4-8.2) gm/dl Albumin (3.4-5.0) gm/dl Globulin (2.5-4.0) gm/dl Albumin/Globulin Ratio (0.9-2) Procalcitonin 0.82 H (0-0.5) ng/ml Administered Medications Heparin Sodium/Dextrose (Heparin Sodium/Dextrose) 25,000 units in 500 mls @ 22 mls/hr IV .[id number] LYNNE; Protocol Stop: 01/21/20 18:44 Last Admin: 12/22/19 19:02 Dose: 1,100 units/hr, 22 mls/hr Documented by: [id number] Cosigned by: [id number] Discontinued Medications Heparin Sodium (Porcine) (Heparin Sod (Porcine) 1000 Unit/Ml 10 Ml Vial) Confirm Administered Dose 10,000 units .ROUTE .STK-MED ONE Stop: 12/22/19 18:59 Last Admin: 12/22/19 19:03 Dose: 5,000 units Documented by: [id number] Cosigned by: [id number] Heparin Sodium/Dextrose (Heparin Iv Standard With Bolus) 1 ea IV NOW STA; Protocol Stop: 12/22/19 18:32 Last Admin: 12/22/19 19:10 Dose: Not Given Documented by: [id number] Heparin Sodium/Dextrose (Heparin Iv Standard With Bolus) 1 ea IV Q15M LYNNE; Protocol Stop: 01/21/20 18:44 Last Admin: 12/22/19 19:10 Dose: Not Given Documented by: [id number] Sodium Chloride (Nss 1000ml) 1,000 mls @ 999 mls/hr IV .Q1H1M [facility] Stop: 12/22/19 17:30 Last Infusion: 12/22/19 18:10 Dose: 0 mls/hr Documented by: [id number] Admin: 12/22/19 17:00 Dose: 999 mls/hr Documented by: [id number] Ioversol (Optiray 320 125ml) 106 ml IV ONCE ONE Stop: 12/22/19 18:10 Last Admin: 12/22/19 18:09 Dose: 106 ml Documented by: [id number] Warfarin Sodium (Warfarin Sod 10 Mg Tab) 10 mg PO ONE ONE Stop: 12/22/19 20:16 Last Admin: 12/22/19 20:23 Dose: 10 mg Documented by: [id number] Imaging Data Radiologist's Impression: CT ANGIOGRAM OF THE CHEST CLINICAL HISTORY: Atypical chest pain. COMPARISON STUDY: Chest x-ray dated 12/22/2019. Chest CT dated 12/19/2019. TECHNIQUE: Following the IV administration of 106 cc of Optiray 320, CT angiogram of the chest was performed from the upper abdomen to the thoracic inlet utilizing the pulmonary embolus protocol. Images are reviewed in the axial, sagittal, and coronal planes. 3-D MIPS images are created and assessed. IV contrast was administered without complication. A dose lowering technique was utilized adhering to the principles of ALARA. The examination is degraded by motion artifact, as well as by streak artifact from the right arm which could not be elevated above the chest. CT DOSE: 506.47 mGycm FINDINGS: Thyroid: Imaged portions of the thyroid gland are normal in size and attenuation. Thoracic aorta: The thoracic aorta is normal in caliber and demonstrates standard 3-vessel arch anatomy. No dissection is seen. Pulmonary vasculature: The pulmonary trunk is normal in caliber. There are segmental and subsegmental pulmonary emboli within branches of the left upper lobe pulmonary artery. Segmental pulmonary embolus also suspected within the right middle lobe pulmonary artery. Heart: The heart is normal in size and without pericardial effusion. Lungs and pleural spaces: Evaluation of the lung parenchyma is degraded by mot ion artifact. Advanced emphysematous change is again noted. The trachea and central airways are clear. There are small left and moderate right pleural effusions with near complete atelectasis of the right lower lobe. A 5 mm pulmonary nodule in the lingula on image #135 is unchanged. Mediastinum: There is no mediastinal lymphadenopathy. Mady: Clear. Axillae: There is no axillary lymphadenopathy. Upper abdomen: Partially visualized upper abdominal viscera is grossly unremarkable. Skeletal structures: The skeletal structures appear osteopenic. The ribs are not well evaluated due to significant motion artifact. No lytic or blastic bony lesions are seen. Soft tissues: There is mild body wall edema. IMPRESSION: 1. Streak and motion compromised examination. 2. Bilateral segmental and subsegmental pulmonary emboli as above. 3. Moderate right pleural effusion with near complete atelectasis of the right lower lobe. This has increased in size from 12/19/2019. 4. There is a small left pleural effusion. 5. Emphysema. 6. Additional findings as above. ACT 112: Negative or not required by law. Electronically signed by: Ryan Mcnulty M.D. 12/22/2019 6:26 PM Dictated: 12/22/19 1815 Transcribed: 12/22/191814 XR chest 1V portable HISTORY: fever COMPARISON: Chest CT 12/19/2019. FINDINGS: Mild emphysema with mild diffuse interstitial thickening. The heart is top normal in size. Small to moderate right pleural effusion and right lower lobe airspace opacities are not significantly changed. No evidence for pulmonary edema. The left lung is essentially clear. IMPRESSION: No significant change in the small to moderate right pleural effusion and right base airspace opacities. ACT 112: Negative or not required by law. Electronically signed by: Khoa Sparks M.D. 12/22/2019 4:53 PM Dictated: 12/22/191650 Transcribed: 12/22/191650 Blood Pressure Blood Pressure Findings: Normal blood pressure Discharge Plan Visit Data Chief Complaint: Pain (Generalized) Stated Complaint: pain ED Provider: Elieser Reyes Discharge Problem: Pulmonary emboli Patient Disposition: Admitted As Inpatient Condition: Good Discharge Instructions Interventions: ED Discharge Assessment Last Done: 12/22/19 21:09
--- NOTE | 2019-12-22 16:54 | XRay Report ---
XR chest 1V portable HISTORY: fever COMPARISON: Chest CT 12/19/2019. FINDINGS: Mild emphysema with mild diffuse interstitial thickening. The heart is top normal in size. Small to moderate right pleural effusion and right lower lobe airspace opacities are not significantl y changed. No evidence for pulmonary edema. The left lung is essentially clear. IMPRESSION: No significant change in the small to moderate right pleural effusion and right base airspace opaciti es. ACT 112: Negative or not required by law. Electronically signed by: Khoa Sparks M.D. 12/22/2019 4:53 PM
[2019-12-22 16:55] LABS: Basophils # (auto) 0.01 K/uL (0-0.2); Basophils % (auto) 0.1 %; Eosinophils # (auto) 0.04 K/uL (0-0.5); Eosinophils % (auto) 0.4 %; Hemoglobin 12.6 g/dL (14.0-18.0); Immature Granulocytes # (auto) 0.09 K/uL (0.00-0.02); Immature Granulocytes % (auto) 0.9 %; Lymphocytes # (auto) 2.14 K/uL (1.2-3.4); Lymphocytes % (auto) 20.9 %; Mean Corpuscular Hemoglobin 30.6 pg (25-34); Mean Corpuscular Hgb Conc 34.1 g/dL (32-36); Mean Corpuscular Volume 89.8 fL (80-100); Mean Platelet Volume 8.2 fL (7.4-10.4); Monocytes # (auto) 0.71 K/uL (0.11-0.59); Monocytes % (auto) 6.9 %; Neutrophils # (auto) 7.24 K/uL (1.4-6.5); Neutrophils % (auto) 70.8 %; Platelet Count 391 K/uL (130-400); RDW Coefficient of Variation 14.3 % (11.5-14.5); RDW Standard Deviation 47.1 fL (36.4-46.3); Red Blood Count 4.12 M/uL (4.7-6.1); White Blood Count 10.23 K/uL (4.8-10.8)
[2019-12-22 17:13] LABS: Alanine Aminotransferase 46 U/L (12-78); Aspartate Aminotransferase 45 U/L (15-37); BUN Creatinine Ratio 21.2 (10-20); Blood Urea Nitrogen 14 mg/dl (7-18); Calcium 7.8 mg/dl (8.5-10.1); Carbon Dioxide 24 mmol/L (21-32); Chloride 103 mmol/L (98-107); Creatinine Clr Calc Pharmacy 108.1 ml/min; Est GFR (African American) 124.4; Est GFR (Non-African American) 107.3; Glucose 102 mg/dl (70-99); INR 1.3 (0.9-1.1); Partial Thromboplastin Time 28.4 Seconds (21.0-31.0); Potassium 3.8 mmol/L (3.5-5.1); Prothrombin Time 13.2 Seconds (9.0-12.0); Sodium 134 mmol/L (136-145)
[2019-12-22 17:17] LABS: Albumin Globulin Ratio 0.3 (0.9-2); Alkaline Phosphatase 73 U/L (45-117); Bilirubin,Total 0.8 mg/dl (0.2-1); Troponin I < 0.015 ng/ml (0-0.045)
[2019-12-22 17:23] LABS: D Dimer 4710 ug/L FEU (0-500)
[2019-12-22] MEDS ORDERED: OPTIRAY 320 125ml IV ONE (18:09)
--- NOTE | 2019-12-22 18:27 | CT Scan Report ---
CT ANGIOGRAM OF THE CHEST CLINICAL HISTORY: Atypical chest pain. COMPARISON STUDY: Chest x-ray dated 12/22/2019. Chest CT dated 12/19/2019. TECHNIQUE: Following the IV administration of 106 cc of Optiray 320, CT angiogram of the chest was pe rformed from the upper abdomen to the thoracic inlet utilizing the pulmonary embolus protocol. Images are reviewed in the axial, sagittal, and coronal planes. 3-D MIPS images are created and assessed. I V contrast was administered without complication. A dose lowering technique was utilized adhering to the principles of ALARA. The examination is degraded by motion artifact, as well as by streak artifa ct from the right arm which could not be elevated above the chest. CT DOSE: 506.47 mGycm FINDINGS: Thyroid: Imaged portions of the thyroid gland are normal in size and attenuation. Thoracic aorta: The thoracic aorta is normal in caliber and demonstrates standard 3-vessel arch anato my. No dissection is seen. Pulmonary vasculature: The pulmonary trunk is normal in caliber. There are segmental and subsegmental pulmonary emboli within branches of the left upper lobe pulmonary artery. Segmental pulmonary embolu s also suspected within the right middle lobe pulmonary artery. Heart: The heart is normal in size and without pericardial effusion. Lungs and pleural spaces: Evaluation of the lung parenchyma is degraded by motion artifact. Advanced emphysematous change is again noted. The trachea and central airways are clear. There are small left and moderate right pleural effusions with near complete atelectasis of the right lower lobe. A 5 mm p ulmonary nodule in the lingula on image #135 is unchanged. Mediastinum: There is no mediastinal lymphadenopathy. Mady: Clear. Axillae: There is no axillary lymphadenopathy. Upper abdomen: Partially visualized upper abdominal viscera is grossly unremarkable. Skeletal structures: The skeletal structures appear osteopenic. The ribs are not well evaluated due t o significant motion artifact. No lytic or blastic bony lesions are seen. Soft tissues: There is mild body wall edema. IMPRESSION: 1. Streak and motion compromised examination. 2. Bilateral segmental and subsegmental pulmonary emboli as above. 3. Moderate right pleural effusion with near complete atelectasis of the right lower lobe. This has i ncreased in size from 12/19/2019. 4. There is a small left pleural effusion. 5. Emphysema. 6. Additional findings as above. ACT 112: Negative or not required by law. Electronically signed by: Ryan Mcnulty M.D. 12/22/2019 6:26 PM
[2019-12-22] MEDS ORDERED: HEPARIN SOD (PORCINE) 1000 UNIT/ML 10 ML VIAL ONE (18:58)
[2019-12-22] MEDS: HEPARIN SODIUM/DEXTROSE 25,000 UNITS/500 ML BAG IV SCH (19:02)
[2019-12-22] MEDS ORDERED: WARFARIN SOD 10 MG TAB PO ONE ×2 (20:15→20:27)
--- NOTE | 2019-12-22 20:16 | History & Physical Report ---
Date of Service December 22, 2019 Assessment & Plan (1) Pulmonary emboli: Mr. Michelle is a 59yo prisoner with a PMHx significant for atrial fibrillation/atrial flutter on warfarin and metoprolol, recent hospitalization for R thigh cellulitis with group C beta strep bacteremia currently on Keflex, BPH, depression and schizotypal personality disorder who presents to the ED with reports of a temp of 101, saturations of 88-89% and pain with inspiration who was found to have bilateral PEs. Bilateral pulmonary emboli -Pt with reported hypoxia and [facility] -D-dimer of 4710 in ED; CTA with bilateral segmental and subsegmental PE -Likely provoked in the setting of recent hospitalization and subtherapeutic INR on warfarin -no current evidence of heart strain, trops NEGATIVE -Echo 12/16/2019- EF 65-70%, LVH, no wall motion abnormalities, mild mitral regurgitation -continue heparin drip started in ED for bridging until Coumadin is therapeutic -one stat dose of warfarin 10mg tonight -continue daily warfarin 5mg administration -trend INR, titrate up warfarin dose as needed to goal of between 2-3 Pleural Effusion in the setting of fever -CTA noted moderate R pleural effusion with near complete atelectasis of RLL -Procal elevated at 0.82 -Blood Cx pending, lactate pending -Empiric treatment with Vanc and Cefepime for possible infectious cause; hold home Keflex. -MRSA swab pending -BNP pending- CHF component? -pulm consult placed-possible thoracentesis? Hx of Bacteremia -Pt recently hospitalized and treated for Group C beta strep bacteremia -holding home Keflex -currently on empiric Cefepime and Vancomycin as above -recommend total of 14 days of IV antibiotics for treatment of gram-positive bacteremia R thigh cellulitis, left anterior leg wound -cellulitis currently resolved, has anterior left leg lesion -hold home Keflex -on empiric abx as above -continue home Vitamin A and D topical ointment application Atrial Fibrillation/flutter -currently rate controlled, sinus rhythm, but had multiple paroxysms of rapid atrial fibrillation flutter during recent hospitalization -continue home metoprolol tartrate 50mg BID -anticoagulated with warfarin, INR currently 1.3 -one stat warfarin 10mg dose tonight -continue warfarin 5mg daily, titrate up as needed as above with INR goal between 2-3 -Heparin drip for bridging as above Depression -continue home fluoxetine 20mg and aripiprazole 2mg po Hx of thiamine Deficiency -continue home thiamine 100mg qAM BPH -stable -not on medication currently Pulmonary nodule-noted on CT scan Needs outpatient follow-up with CT scan at appropriate time FEN/GI: Heart Healthy diet DVT prophylaxis: on warfarin currently bridging with heparin CODE STATUS: Full Dispo: PCU/Tele for continued monitoring (2) Bacterial infection due to Streptococcus, group C: (3) Schizotypal personality disorder: (4) Depression: (5) Venous ulcers of both lower extremities: (6) BPH (benign prostatic hyperplasia): (7) Paroxysmal atrial fibrillation: (8) Pleural effusion: (9) Fever: (10) Pulmonary nodule: History of Present Illness Primary Care Provider: R[facility] Wing Mr. Michelle is a 59yo prisoner with a PMHx significant for atrial fibrillation/atrial flutter on warfarin and metoprolol, R thigh cellulitis with gram positive bacteremia currently on Keflex, BPH, depression and schizotypal personality disorder who presents to the ED with reports of a temp of 101, saturations of 88-89% and pain with inspiration who was found to have bilateral PEs. Pt is a poor historian and states that he currently has no respiratory symptoms. Is unsure of what brought him to the hospital today. History was mostly obtained from the EMT notes. Allergies Allergy/AdvReac Type Severity Reaction Status Date / Time Penicillins Allergy Unknown Unknown Verified 12/22/19 17:24 Home Medications Home Medications Medication Instructions Recorded Confirmed Type aripiprazole 2 mg PO DAILY 12/15/19 12/22/19 History fluoxetine 20 mg PO DAILY 12/15/19 12/22/19 History vitamin A and D 1 applic TOPICAL DAILY 12/15/19 12/22/19 History cephalexin 500 mg PO BID 11 Days #22 cap 12/21/19 12/22/19 Rx metoprolol tartrate 50 mg PO BID 30 Days #120 tab 12/21/19 12/22/19 Rx multivitamin [Daily-Vivien] 1 tab PO QAM 30 Days #30 tab 12/21/19 12/22/19 Rx thiamine HCl (vitamin B1) [Vitamin 100 mg PO QAM 30 Days #30 tab 12/21/19 12/22/19 Rx B-1] warfarin 5 mg PO DAILY@1600 30 Days #30 tab 12/21/19 12/22/19 Rx Past Med/Surg History Medical History Alcoholism Atrial fibrillation with RVR BPH (benign prostatic hyperplasia) Depression Mixed incontinence Peripheral vascular disease Schizotypal personality disorder Venous ulcers of both lower extremities Family History Other Family history non-contributory Social History Smoking Status: Former smoker Tobacco Type: Cigarettes Second Hand Exposure: Yes; Hx Alcohol Use: Yes Hx Substance Use: No Preferred Language: Salvadorean Communication Ability: Effective Cloth Stretcher Required: No Beliefs That Will Affect Care: None Current Living Situation: Other Current Living Situation Comment[facility] Other Information That Helps Us Care for You: No Feels Safe at Home: Yes Safety Concerns: Feels Safe At This Time Assistive Devices: None Review of Systems Constitutional: no fever, no chills, no sweats and no fatigue Eyes: no worsening vision Ear, Nose, Mouth, Throat: no nasal congestion and no sore throat Respiratory: no cough and no dyspnea Cardiovascular: no chest pain, no dyspnea, no palpitations, no edema and no calf pain Gastrointestinal: no abdominal pain, no nausea, no vomiting, no constipation and no diarrhea/loose stools Integumentary: + wounds Neurologic: no tingling, no numbness, no headache(s) and no confusion Psychiatric: + depression; no confusion Physical Exam Physical Exam: General: Alert, oriented. No acute distress, laying in bed. Skin: Bilateral lower extremities with redness to anterior shins Psych: flat affect Neuro: able to move legs and arms slowly HEENT: NC/AT Chest: Nontender to palpation. CV: RRR, Normal s1, s2. No murmurs appreciated Resp: Breath sounds clear bilaterally but decreased, no increased effort of breathing. Abdomen: Soft, nontender, nondistended. No guarding. Extremities: No edema in lower extremities bilaterally. Bilateral lower extremities with redness to anterior shins Results & Data Results & Data ([facility]) Vital Signs (Past 12 Hours) Vital Signs Temp Pulse Resp BP Pulse Ox 12/22/19 16:23 36.3 C L 86 16 105/63 98 Laboratory Results 12/22/19 12/22/19 12/22/19 Range/Units 20:30 20:22 20:22 WBC (4.8-10.8) K/uL RBC (4.7-6.1) M/uL Hgb (14.0-18.0) g/dL Hct (42-52) % MCV (80-100) fL MCH (25-34) pg MCHC (32-36) g/dL RDW Std Deviation (36.4-46.3) fL RDW Coeff of Benjamin (11.5-14.5) % Plt Count (130-400) K/uL MPV (7.4-10.4) fL Immature Gran % (Auto) % Neut % (Auto) % Lymph % (Auto) % Granite % (Auto) % Eos % (Auto) % Baso % (Auto) % Neut # (Auto) (1.4-6.5) K/uL Lymph # (Auto) (1.2-3.4) K/uL Granite # (Auto) (0.11-0.59) K/uL Eos # (Auto) (0-0.5) K/uL Baso # (Auto) (0-0.2) K/uL Immature Gran # (Auto) (0.00-0.02) K/uL ESR (0-14) mm/hr PT (9.0-12.0) Seconds INR (0.9-1.1) APTT (21.0-31.0) Seconds PTT Ratio D-Dimer (0-500) ug/L FEU Sodium (136-145) mmol/L Potassium (3.5-5.1) mmol/L Chloride (98-107) mmol/L Carbon Dioxide (21-32) mmol/L Anion Gap (3-11) BUN (7-18) mg/dl Creatinine (0.6-1.4) mg/dl Est Cr Clr Drug Dosing ml/min Est GFR ( Amer) Est GFR (Non-Af Amer) BUN/Creatinine Ratio (10-20) Glucose (70-99) mg/dl Lactate 0.9 (0.4-2.0) mmol/L Calcium (8.5-10.1) mg/dl Total Bilirubin (0.2-1) mg/dl AST (15-37) U/L ALT (12-78) U/L Alkaline Phosphatase (45-117) U/L Troponin I (0-0.045) ng/ml C-Reactive Protein (0-0.29) mg/dl NT-Pro-B Natriuret Pep 1378 H (0-900) pg/ml Total Protein (6.4-8.2) gm/dl Albumin (3.4-5.0) gm/dl Globulin (2.5-4.0) gm/dl Albumin/Globulin Ratio (0.9-2) Procalcitonin (0-0.5) ng/ml Nasal Screen MRSA (PCR) Negative (Negative) 12/22/19 12/22/19 12/22/19 Range/Units 16:42 16:42 16:42 WBC 10.23 (4.8-10.8) K/uL RBC 4.12 L (4.7-6.1) M/uL Hgb 12.6 L (14.0-18.0) g/dL Hct 37.0 L (42-52) % MCV 89.8 (80-100) fL MCH 30.6 (25-34) pg MCHC 34.1 (32-36) g/dL RDW Std Deviation 47.1 H (36.4-46.3) fL RDW Coeff of Benjamin 14.3 (11.5-14.5) % Plt Count 391 (130-400) K/uL MPV 8.2 (7.4-10.4) fL Immature Gran % (Auto) 0.9 % Neut % (Auto) 70.8 % Lymph % (Auto) 20.9 % Granite % (Auto) 6.9 % Eos % (Auto) 0.4 % Baso % (Auto) 0.1 % Neut # (Auto) 7.24 H (1.4-6.5) K/uL Lymph # (Auto) 2.14 (1.2-3.4) K/uL Granite # (Auto) 0.71 H (0.11-0.59) K/uL Eos # (Auto) 0.04 (0-0.5) K/uL Baso # (Auto) 0.01 (0-0.2) K/uL Immature Gran # (Auto) 0.09 H (0.00-0.02) K/uL ESR (0-14) mm/hr PT (9.0-12.0) Seconds INR (0.9-1.1) APTT (21.0-31.0) Seconds PTT Ratio D-Dimer (0-500) ug/L FEU Sodium 134 L (136-145) mmol/L Potassium 3.8 (3.5-5.1) mmol/L Chloride 103 (98-107) mmol/L Carbon Dioxide 24 (21-32) mmol/L Anion Gap 7.0 (3-11) BUN 14 (7-18) mg/dl Creatinine 0.66 (0.6-1.4) mg/dl Est Cr Clr Drug Dosing 108.1 ml/min Est GFR ( Amer) 124.4 Est GFR (Non-Af Amer) 107.3 BUN/Creatinine Ratio 21.2 H (10-20) Glucose 102 H (70-99) mg/dl Lactate (0.4-2.0) mmol/L Calcium 7.8 L (8.5-10.1) mg/dl Total Bilirubin 0.8 (0.2-1) mg/dl AST 45 H (15-37) U/L ALT 46 (12-78) U/L Alkaline Phosphatase 73 (45-117) U/L Troponin I < 0.015 (0-0.045) ng/ml C-Reactive Protein 11.40 H (0-0.29) mg/dl NT-Pro-B Natriuret Pep (0-900) pg/ml Total Protein 8.0 (6.4-8.2) gm/dl Albumin 2.0 L (3.4-5.0) gm/dl Globulin 6.0 H (2.5-4.0) gm/dl Albumin/Globulin Ratio 0.3 L (0.9-2) Procalcitonin 0.82 H (0-0.5) ng/ml Nasal Screen MRSA (PCR) (Negative) 12/22/19 12/22/19 Range/Units 16:42 16:42 WBC (4.8-10.8) K/uL RBC (4.7-6.1) M/uL Hgb (14.0-18.0) g/dL Hct (42-52) % MCV (80-100) fL MCH (25-34) pg MCHC (32-36) g/dL RDW Std Deviation (36.4-46.3) fL RDW Coeff of Benjamin (11.5-14.5) % Plt Count (130-400) K/uL MPV (7.4-10.4) fL Immature Gran % (Auto) % Neut % (Auto) % Lymph % (Auto) % Granite % (Auto) % Eos % (Auto) % Baso % (Auto) % Neut # (Auto) (1.4-6.5) K/uL Lymph # (Auto) (1.2-3.4) K/uL Granite # (Auto) (0.11-0.59) K/uL Eos # (Auto) (0-0.5) K/uL Baso # (Auto) (0-0.2) K/uL Immature Gran # (Auto) (0.00-0.02) K/uL ESR 78 H (0-14) mm/hr PT 13.2 H (9.0-12.0) Seconds INR 1.3 H (0.9-1.1) APTT 28.4 (21.0-31.0) Seconds PTT Ratio 1.0 D-Dimer 4710 H* (0-500) ug/L FEU Sodium (136-145) mmol/L Potassium (3.5-5.1) mmol/L Chloride (98-107) mmol/L Carbon Dioxide (21-32) mmol/L Anion Gap (3-11) BUN (7-18) mg/dl Creatinine (0.6-1.4) mg/dl Est Cr Clr Drug Dosing ml/min Est GFR ( Amer) Est GFR (Non-Af Amer) BUN/Creatinine Ratio (10-20) Glucose (70-99) mg/dl Lactate (0.4-2.0) mmol/L Calcium (8.5-10.1) mg/dl Total Bilirubin (0.2-1) mg/dl AST (15-37) U/L ALT (12-78) U/L Alkaline Phosphatase (45-117) U/L Troponin I (0-0.045) ng/ml C-Reactive Protein (0-0.29) mg/dl NT-Pro-B Natriuret Pep (0-900) pg/ml Total Protein (6.4-8.2) gm/dl Albumin (3.4-5.0) gm/dl Globulin (2.5-4.0) gm/dl Albumin/Globulin Ratio (0.9-2) Procalcitonin (0-0.5) ng/ml Nasal Screen MRSA (PCR) (Negative) ECG Additional Comments: ECG on 12/22/2019 at 2032 with sinus rhythm with PACs, rate 83, no ischemic changes Code Status & VTE Plan Code Status Full code VTE Prophylaxis Plan VTE Prophylaxis will be ordered: Yes Supervising Physician Co-Signing Physician Notes I personally examined the patient and verified all gamez points of history and exam, discussed case, and agree with decision making with Dr. Marquez with the following additions/exceptions: This patient is a 59-year-old male with history of depression and schizotypal personality disorder, paroxysmal atrial fibrillation and flutter, BPH, with recent hospitalization for right thigh cellulitis with group C beta strep bacteremia. Now returns with hypoxia, pleuritic chest pain and found to have multiple bilateral segmental and subsegmental pulmonary emboli. He was also [facility] to [facility] a [facility] at the [facility]. He is not requiring oxygen and feels better now than when he came in except he does cause him pain more on the right side of his chest with deep inspiration. He is not coughing much. He denies nausea or abdominal pain. History and ROS reviewed as above Vitals reviewed Gen: AAOx3, NAD, thin HEENT: Anicteric sclerae, EOMI, mucous membranes moist CV: RRR no mgr nl S1S2 Pulm: Diminished breath sounds at the right base, otherwise clear Abd: +BS soft NT ND no masses or hernias Ext: Trace pitting edema of the feet and ankles bilaterally, 2+ DP pulses Skin: Severe chronic venous stasis changes and severely dry skin throughout legs and bilateral feet with sloughing flakes of skin and chronic erythema of legs, no open wounds except left anterior ty with small shallow ulceration with dressing in place Neuro: Full strength throughout Laboratory values reviewed Chest CT and chest x-ray both personally reviewed images by me ECG reviewed by me 59-year-old male with history as above, here with mild hypoxia, pleuritic chest pain, and low-grade fever. Found to have bilateral pulmonary emboli and enlarging right-sided pleural effusion. He was not receiving any bridging anticoagulation on discharge yesterday as he was being anticoagulated for atrial fibrillation and was in sinus rhythm at the time of discharge. We will now continue heparin drip started in the ER and load him up with 10 mg of Coumadin today and then back to 5 mg daily for tomorrow Would recommend bridging with heparin and/or Lovenox injections until INR is therapeutic x2 days in a row Check bilateral lower extremity venous Dopplers for DVT Follow PT/PTT/INR Hypoxia likely secondary to acute PEs and pleural effusion As for his right-sided pleural effusion, could be from diastolic CHF given recent multiple episodes of rapid atrial fibrillation and flutter during hospitalization. Echocardiogram had preserved EF 1 week ago. Check proBNP. Could also be perhaps a parapneumonic effusion given the fevers and pulmonary emboli with possible infarct? It does seem to rug layer when he is lying flat for CT scan. Procalcitonin is mildly elevated and will follow this again in the morning. Check MRSA swab Appreciate any further recommendations from pulmonology will continue broad- spectrum antibiotics at this time. Follow blood cultures For his previous group C beta strep bacteremia and cellulitis-the cellulitis is now resolved, but would recommend restarting IV antibiotics for a total of 14 days from the time of last negative blood cultures Continue to monitor on telemetry and continue metoprolol for paroxysmal atrial fibrillation and flutter. Replace electrolytes as needed Pulmonary nodule-needs follow-up as an outpatient given history of smoking Resident Activity Tracking Resident Involvement: Resident Care Provided Care Provided: Adult Hospital Medicine
[2019-12-22] MEDS ORDERED: VANCOMYCIN CONSULT ACTIVE PRN (21:04)
[2019-12-22] MEDS ORDERED: VANCOMYCIN HCL 1,500 MG in SODIUM CHLORIDE 0.9% 500 ML IV ONE (21:30)
--- NOTE | 2019-12-22 21:49 | Pharmacy Report ---
Pharmacy Abx Initial Consult - Date of Service December 22, 2019 - Pharmacy Dosing Scope Date of Consult: 12/22/19 Consultation requested by: Dr. Marquez Pharmacy is consulted to initiate Vancomycin IV dosing therapy, order appropriate labs and adjust drug dose/frequency. - Subjective The patient is a 59 year old M admitted on 12/22/19 19:59. - Objective Height: 5 ft 11 in Weight: 61.9 kg Vital Signs (Past 12hrs): Vital Signs Temp Pulse Resp BP Pulse Ox 12/22/19 20:15 72 120/63 96 12/22/19 20:00 78 24 109/59 L 96 12/22/19 19:45 77 110/59 L 96 12/22/19 19:30 73 103/63 96 12/22/19 19:15 73 114/68 98 12/22/19 19:00 75 26 H 110/61 96 12/22/19 18:45 69 114/62 97 12/22/19 18:30 75 26 H 103/60 97 12/22/19 18:15 89 26 H 129/65 98 12/22/19 17:00 76 23 96 12/22/19 16:23 36.3 C L 86 16 105/63 98 12/22/19 16:21 81 23 105/63 96 Lab Results (24hrs): Laboratory Tests (24 Hours) 12/22/19 12/22/19 12/22/19 16:42 16:42 16:42 WBC 10.23 Neut # (Auto) 7.24 H ESR Creatinine 0.66 Est Cr Clr Drug Dosing 108.1 C-Reactive Protein 11.40 H Procalcitonin 0.82 H 12/22/19 16:42 WBC Neut # (Auto) ESR 78 H Creatinine Est Cr Clr Drug Dosing C-Reactive Protein Procalcitonin Micro Results: 12/22/19 17:34 Aerobic Blood Culture - Pending Blood Anaerobic Blood Culture - Pending 12/22/19 16:42 Aerobic Blood Culture - Pending Blood Anaerobic Blood Culture - Pending - Risk Factors for Resistance * Resident in a [facility] or extended[facility]care facility -> incarcerated * Hospitalization for 48 hours or more within the past 90 days -> 12/14-12/20 * Antimicrobial use within the last 90 days -> Keflex for group C strep bacteremia - Assessment & Plan Assessment 59 year old M on empiric IV Vancomycin and Cefepime (not a consult) for empiric indication. He has history of bledsoe-sensitive group C strep bacteremia last admission (12/14-12/21/19); he was discharged on Keflex. Readmitted today with BL PE's, febrile. Patient meets criteria for vancomycin AUC dosing nomogram AUC/SIERRA is the preferred PK/PD target for vancomycin Target AUC/SIERRA = 400-600 AUC guided dosing is effective and associated with decreased risk of nephrotoxicity Plan Vancomycin IV * Estimated PK Parameters: Cezar 0.094 hr-1, t1/2 7.37 hr * Loading dose: 1500 mg (~24 mg/kg) * Maintenance dose: 1000 mg IV (~16 mg/kg) every 8 hours - based on Vancomycin AUC nomogram for weight 55-64 kg and CrCl 105-114 mL/min * Goal trough level for empiric : 15 to 20 mcg/mL * No level ordered at this time due to empiric indication; if therapy continued >48 hours, will order level Pharmacy will continue to follow and will adjust dose/frequency as necessary. Thank you.
[2019-12-22] MEDS: METOPROLOL TARTRATE 50 MG TAB PO SCH (22:11)
[2019-12-22] MEDS: CEFEPIME 2,000 MG in SYRINGE 0 ML IV SCH (22:31)
--- NOTE | 2019-12-22 22:31 | Billing Data ---
Date of Service December 22, 2019 Coding Level of Care Code 05025 OBS Care - Level 3
[2019-12-22 22:47] LABS: Appearance Urine Clear (Clear); Bacteria Urine Automated Negative (Negative); Bilirubin Urine Negative (Negative); Blood Urine Negative (Negative); Color Urine Yellow; Glucose Urine UA Negative (Negative); Ketones Urine 1+ (Negative); Leukocyte Esterase Urine Negative (Negative); Nitrite Urine Negative (Negative); Protein Urine Trace (Negative); RBC Urine Automated 0-4 /hpf (0-4); Specific Gravity Urine > 1.045 (1.000-1.030); Urobilinogen Urine Negative (Negative); pH Urine 5.5 (4.5-7.5)
[2019-12-23 01:28] LABS: Basophils # (auto) 0.01 K/uL (0-0.2); Basophils % (auto) 0.1 %; Eosinophils # (auto) 0.08 K/uL (0-0.5); Eosinophils % (auto) 0.9 %; Hematocrit (blood only) 32.6 % (42-52); Immature Granulocytes # (auto) 0.06 K/uL (0.00-0.02); Immature Granulocytes % (auto) 0.7 %; Lymphocytes % (auto) 26.7 %; Mean Corpuscular Hemoglobin 30.8 pg (25-34); Mean Corpuscular Hgb Conc 33.7 g/dL (32-36); Mean Corpuscular Volume 91.3 fL (80-100); Mean Platelet Volume 7.9 fL (7.4-10.4); Monocytes # (auto) 0.78 K/uL (0.11-0.59); Monocytes % (auto) 8.7 %; Neutrophils # (auto) 5.65 K/uL (1.4-6.5); Neutrophils % (auto) 62.9 %; Platelet Count 351 K/uL (130-400); RDW Coefficient of Variation 14.4 % (11.5-14.5); RDW Standard Deviation 48.4 fL (36.4-46.3); Red Blood Count 3.57 M/uL (4.7-6.1); White Blood Count 8.98 K/uL (4.8-10.8)
[2019-12-23 01:36] LABS: INR 1.3 (0.9-1.1)
[2019-12-23 01:38] LABS: Partial Thromboplastin Ratio 1.5; Partial Thromboplastin Time 40.7 Seconds (21.0-31.0)
[2019-12-23 01:44] LABS: Albumin Level 1.8 gm/dl (3.4-5.0); BUN Creatinine Ratio 19.7 (10-20); Calcium 7.5 mg/dl (8.5-10.1); Creatinine Clr Calc Pharmacy 119.3 ml/min; Est GFR (African American) 120.7; Est GFR (Non-African American) 104.2; Potassium 3.8 mmol/L (3.5-5.1)
[2019-12-23 01:47] LABS: Albumin Globulin Ratio 0.3 (0.9-2); Bilirubin,Total 0.6 mg/dl (0.2-1); Globulin 5.3 gm/dl (2.5-4.0); Total Protein 7.1 gm/dl (6.4-8.2)
[2019-12-23] MEDS ORDERED: HEPARIN IV BOLUS 6,000 UNITS in SYRINGE 0 ML IV ONE (02:00)
[2019-12-23] MEDS: CEFEPIME 2,000 MG in SYRINGE 0 ML IV SCH ×3 (05:45→21:31)
[2019-12-23] MEDS: VANCOMYCIN HCL 1,000 MG in SODIUM CHLORIDE 0.9% 250 ML IV SCH ×3 (05:45→21:31)
--- NOTE | 2019-12-23 07:08 | Ultrasound Report ---
BILATERAL LOWER EXTREMITY VENOUS DOPPLER HISTORY: Pulmonary embolus. Assess for DVT. COMPARISON STUDY: Venous Doppler 09/09/2019. FINDINGS: There is normal compressibility, flow, and augmentation within the bilateral lower extremit y deep venous systems. IMPRESSION: No DVT within the right or left lower extremity. ACT 112: Negative or not required by law. Electronically signed by: Khoa Sparks M.D. 12/23/2019 7:07 AM
[2019-12-23] MEDS: ARIPIprazole 1 MG/ML ORAL SOLN 150 ML BTL PO SCH (08:06)
[2019-12-23] MEDS: THIAMINE HCL 100 MG TAB PO SCH (08:06)
[2019-12-23] MEDS: FLUOXETINE HCL 20 MG CAP PO SCH (08:06)
[2019-12-23] MEDS: MULTIVITAMIN TAB PO SCH (08:06)
[2019-12-23] MEDS: METOPROLOL TARTRATE 50 MG TAB PO SCH ×2 (08:06→20:29)
[2019-12-23 08:37] LABS: Partial Thromboplastin Time 82.6 Seconds (21.0-31.0)
[2019-12-23] MEDS ORDERED: PETROLATUM 16 OZ JAR EXT SCH (09:00)
[2019-12-23] MEDS ORDERED: Nursing to Pharmacy Communication SCH ×3 (11:15→16:45)
--- NOTE | 2019-12-23 11:25 | Pulmonary Consultation ---
Date of Consultation December 23, 2019 Assessment & Plan (1) Pleural effusion: 59-year-old male with a past medical history of schizoaffective disorder, incarceration, recent bacteremia with group C streptococcus and atrial fibrillation on Coumadin presenting to the hospital due to shortness of breath and chest pain found to have bilateral pulmonary emboli. Pleural effusion may be a sympathetic response to the pulmonary emboli and possible infarct in the right middle and right lower lobes. Given his history of smoking and given the moderate size of the pleural effusion, I will attempt a thoracentesis on the right side and send studies for chemistries, cytology and cultures. He also recently had a fever which most likely is related to the pulmonary embolism, but given his recent bacteremia it is prudent to rule out empyema. As the patient is currently on heparin and warfarin, we will stop the heparin drip and I will reassess his PTT in 4 hours. If it is within normal limits, then we can proceed with the thoracentesis. Additionally, I am rechecking his INR since his last INR was at 1 AM. This should be less than 1.8 prior to performing the procedure. With regards to anticoagulation, it does appear that the DVT may have been provoked from his recent hospitalization or perhaps was even present during the last hospitalization and presented as the cellulitis. Additionally, I wonder whether the atrial fibrillation was provoked from a pulmonary embolism. Lower extremity Dopplers do not represent any DVT. 6 months of anticoagulation will be needed, however, the patient is on anticoagulation anyway for his atrial fibrillation. This raises the question of whether he was truly therapeutic on anticoagulation with warfarin or whether this was a treatment failure. It may be prudent to involve hematology in this case. Pulmonary will continue to follow along with you. Thank you for the consult. (2) Pulmonary emboli: Acute cor pulmonale presence: unspecified Chronicity: acute Pulmonary embolism type: other Qualified Code(s): I26.99 - Other pulmonary embolism without acute cor pulmonale (3) Paroxysmal atrial fibrillation: History of Present Illness Reason for Consultation: Pleural effusion Requesting Physician: Dr. Marquez Attending Physician: Daron Gallardo History of Present Illness This is a 59-year-old male with a past medical history of atrial fibrillation on warfarin, schizoaffective disorder and recent hospital discharge for atrial fibrillation with rapid ventricular response on 12/21/2019. He also had a bacteremia with group C streptococcus that was pansensitive and the thought was that the right thigh cellulitis was the source. TTE at that time did not show any vegetations. Patient notes that he has right-sided chest pain with pleurisy. He describes that he is generally lethargic and sedentary. Overall he is not a great historian. He [facility] in the [facility]. He notes that he was a smoker since his teenage years and quit smoking approximately several months ago. CTA of the chest was performed yesterday which showed bilateral segmental and subsegmental pulmonary emboli. Moderate right pleural effusion with near complete atelectasis of the right lower lobe that has increased in size from 12/19/2019. Emphysema was noted as well. Lower extremity duplex was negative for DVT on the right and left lower extremity. Patient is currently receiving warfarin. INR today was 1.3 at 1:16 AM. PTT is currently 82.6 since he is on a heparin drip. Allergies Allergy/AdvReac Type Severity Reaction Status Date / Time Penicillins Allergy Unknown Unknown Verified 12/22/19 17:24 Home Medications Home Medications Medication Instructions Recorded Confirmed Type aripiprazole 2 mg PO DAILY 12/15/19 12/22/19 History fluoxetine 20 mg PO DAILY 12/15/19 12/22/19 History vitamin A and D 1 applic TOPICAL DAILY 12/15/19 12/22/19 History cephalexin 500 mg PO BID 11 Days #22 cap 12/21/19 12/22/19 Rx metoprolol tartrate 50 mg PO BID 30 Days #120 tab 12/21/19 12/22/19 Rx multivitamin [Daily-Vivien] 1 tab PO QAM 30 Days #30 tab 12/21/19 12/22/19 Rx thiamine HCl (vitamin B1) [Vitamin 100 mg PO QAM 30 Days #30 tab 12/21/19 12/22/19 Rx B-1] warfarin 5 mg PO DAILY@1600 30 Days #30 tab 12/21/19 12/22/19 Rx Patient History Medical History Alcoholism Atrial fibrillation with RVR BPH (benign prostatic hyperplasia) Depression Mixed incontinence Peripheral vascular disease Pulmonary nodule Schizotypal personality disorder Venous ulcers of both lower extremities Family History Other Family history non-contributory Social History Smoking Status: Former smoker Tobacco Type: Cigarettes Second Hand Exposure: Yes; Hx Alcohol Use: Yes Hx Substance Use: No Preferred Language: Mongolian Communication Ability: Effective Operator Weapon Locating Radar Required: No Beliefs That Will Affect Care: None Current Living Situation: Other Current Living Situation Comment: [facility] Other Information That Helps Us Care for You: No Feels Safe at Home: Yes Safety Concerns: Feels Safe At This Time Assistive Devices: None Review of Systems Review of Systems: All systems reviewed & are unremarkable except as noted in HPI & below Physical Exam Constitutional: Thin and frail-appearing 59-year-old male in no apparent distress. He is lying in bed. Eyes: PERRL, conjunctivae normal, anicteric sclerae ENMT: external ear and nose normal, oropharynx normal Neck: normal visual inspection Respiratory: Diminished breath sounds on the right. No wheezes. Cardiovascular: Rate/Rhythm: regular rate and + irregularly irregular Gastrointestinal (Abdomen): normal bowel sounds, soft, nontender, no hepatosplenomegaly Musculoskeletal: no cyanosis or clubbing, extremities motor strength 5/5 Skin: Areas of ecchymosis and scabs in the lower extremities Neurologic: PERRL, EOMI, accommodation nl, no face palsy, no dysarthria Psychiatric: Orientation: alert and oriented x 3 Mood: + depressed mood Results & Data Results & Data ([facility]) Vital Signs (Past 12 Hours) Vital Signs Temp Pulse Resp BP BP Pulse Ox 12/23/19 07:38 98.8 F 77 18 105/67 92 12/23/19 03:41 98.1 F 75 16 100/60 94 12/22/19 23:57 97.5 F L 84 18 102/60 94 I reviewed vital signs, labs and imaging PG Care Time/CCT Total # of Minutes Spent Total Time Spent with Patient: Total time spent is greater than 50% in coordination of care (as documented) at patient's floor/unit and/or counseling patient: Coding Level of Care Code 76377 Inpt Consult Level 5 Diagnoses Pleural effusion J90 Pulmonary emboli I26.99 Acute cor pulmonale presence: unspecified Chronicity: acute Pulmonary embolism type: other Paroxysmal atrial fibrillation I48.0
[2019-12-23 11:53] LABS: INR 1.4 (0.9-1.1)
[2019-12-23 15:17] LABS: Partial Thromboplastin Ratio 1.1
--- NOTE | 2019-12-23 16:27 | Procedure Note ---
Procedure Note Date of Service December 23, 2019 Note Procedure: Diagnostic and/or right-sided therapeutic ultrasound-guided catheter thoracentesis Machinist Apprentice: Dr. Waldemar Solomon Indication: Pleural effusion Consent: Signed by patient and verified with timeout prior to procedure Anesthesia: 8 mL's of 1% lidocaine without epinephrine given locally Procedure: Consent was verified and timeout performed. Appropriate imaging studies were reviewed prior to the procedure. Patient was placed in a seated position and limited thoracic ultrasound was performed of the right chest. See separate imaging. The site appropriate for thoracentesis was selected. The skin was prepped and draped in normal sterile fashion. Lidocaine was used for local analgesia. Fluid was aspirated via the finder needle. A small skin melony was made with the scalpel and the catheter over the needle apparatus was advanced over the rib into the pleural space. Using the syringe one-way valve system, a total of 1200 mL's of marii-colored fluid was removed. Procedure was terminated due to lack of fluid aspiration. The catheter was removed and observed to be intact. A sterile dressing was applied. Post procedure chest x-ray was ordered. Fluid was sent for LDH, total protein, cell count, glucose, pH, cytology, AFB cultures, gram stain and culture and fungal cultures. The patient tolerated the procedure well without obvious complication. Chest x- ray pending. Heparin drip can be restarted in 1 hour. Okay to receive Coumadin today. Coding CPT Codes Pulmonary/Thoracic - Pulmonary and Thoracic: 25828 Pleural drainage w/imaging ([id number]) [facility] [place] Procedure Codes (Charges) Pulmonary/Thoracic Procedure 1: Pulmonary and Thoracic: 15047 Pleural drainage w/imaging
[2019-12-23 16:56] LABS: Appearance Pleural Fluid CLOUDY; Basophils, Fluid 0 %; Color Pleural Fluid AMBER; Eosinophils, Fluid 0 %; Lymphocytes, Fluid 6 %; Mono,Macrophage,Mesothelial 0 %; Neutrophils, Fluid 94 %; RBC Pleural Fluid (A) 8000 /uL; Source Pleural Fluid RIGHT LUNG; Total Protein Pleural Fluid 4.5 g/dl; WBC Pleural Fluid (A) 4202 /uL
--- NOTE | 2019-12-23 17:13 | XRay Report ---
XR chest 1V portable CLINICAL HISTORY: Status post right-sided thoracentesis COMPARISON STUDY: 12/22/2019 FINDINGS: The heart is mildly enlarged. There is slight decrease in the size of the right pleural eff usion. No pneumothorax is visualized. There are right basilar opacity statistically representing atel ectasis.[ IMPRESSION: No evidence of pneumothorax status post thoracentesis. ACT 112: Negative or not required by law. Electronically signed by: Mik Orr M.D. 12/23/2019 5:12 PM
[2019-12-23] MEDS: WARFARIN SOD 5 MG TAB PO SCH (17:19)
[2019-12-23] MEDS: HEPARIN SODIUM/DEXTROSE 25,000 UNITS/500 ML BAG IV SCH (20:28)
--- NOTE | 2019-12-23 23:20 | Hospitalist Progress Note ---
Date of Service December 23, 2019 Assessment & Plan (1) Pulmonary emboli: Mr. Michelle is a 59yo prisoner with a PMHx significant for atrial fibrillation/atrial flutter on warfarin and metoprolol, recent hospitalization for R thigh cellulitis with group C beta strep bacteremia currently on Keflex, BPH, depression and schizotypal personality disorder who presents to the ED with reports of a temp of 101, saturations of 88-89% and pain with inspiration who was found to have bilateral PEs. Bilateral pulmonary emboli -Pt with reported hypoxia and pleuritic chest pain at intermediate -D-dimer of 4710 in ED; CTA with bilateral segmental and subsegmental PE -Likely provoked in the setting of recent hospitalization and subtherapeutic INR on warfarin -no current evidence of heart strain, trops NEGATIVE -Echo 12/16/2019- EF 65-70%, LVH, no wall motion abnormalities, mild mitral regurgitation -continue heparin drip started in ED for bridging until Coumadin is therapeutic -continue daily warfarin 5mg administration awaiting therapuetic warfarin, as intermediate likely does not have DOAC available Pleural Effusion in the setting of fever -CTA noted moderate R pleural effusion with near complete atelectasis of RLL -Procal elevated at 0.82 -Blood Cx pending, lactate pending -Empiric treatment with Vanc and Cefepime for possible infectious cause; hold home Keflex. -will likely stop antibiotics as WBC is normal,no left sided shift, no temp or signs of SIRS. -awaiting cytology of thoracocenthesis Hx of Bacteremia -Pt recently hospitalized and treated for Group C beta strep bacteremia -holding home Keflex -currently on empiric Cefepime and Vancomycin as above -recommend total of 14 days of IV antibiotics for treatment of gram-positive bacteremia R thigh cellulitis, left anterior leg wound -cellulitis currently resolved, has anterior left leg lesion -hold home Keflex -on empiric abx as above -continue home Vitamin A and D topical ointment application Atrial Fibrillation/flutter -currently rate controlled, sinus rhythm, but had multiple paroxysms of rapid atrial fibrillation flutter during recent hospitalization -continue home metoprolol tartrate 50mg BID -anticoagulated with warfarin, INR currently 1.3 -one stat warfarin 10mg dose tonight -continue warfarin 5mg daily, titrate up as needed as above with INR goal between 2-3 -Heparin drip for bridging as above Depression -continue home fluoxetine 20mg and aripiprazole 2mg po Hx of thiamine Deficiency -continue home thiamine 100mg qAM BPH -stable -not on medication currently Pulmonary nodule-noted on CT scan Needs outpatient follow-up with CT scan at appropriate time FEN/GI: Heart Healthy diet DVT prophylaxis: on warfarin currently bridging with heparin CODE STATUS: Full Dispo: PCU/Tele for continued monitoring (2) Bacterial infection due to Streptococcus, group C: (3) Schizotypal personality disorder: (4) Depression: (5) Venous ulcers of both lower extremities: (6) BPH (benign prostatic hyperplasia): (7) Paroxysmal atrial fibrillation: (8) Pleural effusion: (9) Fever: (10) Pulmonary nodule: Admission and Anticipated Discharge Date Admission Date: December 22, 2019 Subjective Patient reports having right sided chest pain at site of thoracocenthesis Review of Systems Review of Systems: All systems reviewed & are unremarkable except as noted in HPI & below Physical Exam Physical Exam: General: Alert, oriented. No acute distress, laying in bed. Skin: Bilateral lower extremities with redness to anterior shins Psych: flat affect Neuro: able to move legs and arms slowly HEENT: NC/AT Chest: Nontender to palpation. CV: RRR, Normal s1, s2. No murmurs appreciated Resp: Breath sounds clear bilaterally, no increased effort of breathing. Abdomen: Soft, nontender, nondistended. No guarding. Extremities: No edema in lower extremities bilaterally. Bilateral lower extremities with redness to anterior shins Results & Data Results & Data ([facility]) Vital Signs (Past 12 Hours) Vital Signs Temp Pulse Resp BP BP Pulse Ox 12/23/19 19:06 37.7 C H 82 18 108/63 94 12/23/19 16:35 75 116/75 98 12/23/19 15:23 37.6 C H 77 21 97/55 L 93 12/23/19 11:45 36.6 C 75 18 101/63 94 PG Care Time/CCT Total # of Minutes Spent Total Time Spent with Patient: Total time spent is greater than 50% in coordination of care (as documented) at patient's floor/unit and/or counseling patient: Coding Level of Care Code 79477 Subseq Hosp Care Lvl 3 Diagnoses Pulmonary emboli I26.99 Acute cor pulmonale presence: unspecified Chronicity: acute Pulmonary embolism type: other Bacterial infection due to Streptococcus, group C A49.1 Schizotypal personality disorder F21 Depression F32.9 Venous ulcers of both lower extremities I83.019; I83.029; L97.919; L97.929 BPH (benign prostatic hyperplasia) N40.0 Paroxysmal atrial fibrillation I48.0 Pleural effusion J90 Fever R50.9 Pulmonary nodule R91.1 Time Spent (min) 35 (1) Pulmonary emboli Acute cor pulmonale presence: unspecified Chronicity: acute Pulmonary embolism type: other Qualified Code(s): I26.99 - Other pulmonary embolism without acute cor pulmonale
[2019-12-23 23:47] LABS: Partial Thromboplastin Ratio 1.6
[2019-12-24 00:03] LABS: Partial Thromboplastin Time 45.5 Seconds (21.0-31.0)
[2019-12-24] MEDS ORDERED: HEPARIN IV BOLUS 3,000 UNITS in SYRINGE 0 ML IV ONE (00:45)
[2019-12-24] MEDS ORDERED: VANCOMYCIN TROUGH ONE (05:30)
[2019-12-24] MEDS: VANCOMYCIN HCL 1,000 MG in SODIUM CHLORIDE 0.9% 250 ML IV SCH ×2 (06:02→13:31)
[2019-12-24] MEDS: CEFEPIME 2,000 MG in SYRINGE 0 ML IV SCH ×2 (06:02→13:31)
[2019-12-24 06:23] LABS: Basophils # (auto) 0.01 K/uL (0-0.2); Basophils % (auto) 0.1 %; Eosinophils # (auto) 0.08 K/uL (0-0.5); Hematocrit (blood only) 33.5 % (42-52); Immature Granulocytes # (auto) 0.06 K/uL (0.00-0.02); Immature Granulocytes % (auto) 0.8 %; Lymphocytes # (auto) 2.68 K/uL (1.2-3.4); Lymphocytes % (auto) 34.3 %; Mean Corpuscular Hemoglobin 29.8 pg (25-34); Mean Corpuscular Hgb Conc 32.8 g/dL (32-36); Mean Corpuscular Volume 90.8 fL (80-100); Monocytes # (auto) 0.65 K/uL (0.11-0.59); Monocytes % (auto) 8.3 %; Neutrophils # (auto) 4.34 K/uL (1.4-6.5); Neutrophils % (auto) 55.5 %; Platelet Count 421 K/uL (130-400); RDW Coefficient of Variation 14.4 % (11.5-14.5); RDW Standard Deviation 47.9 fL (36.4-46.3); Red Blood Count 3.69 M/uL (4.7-6.1); White Blood Count 7.82 K/uL (4.8-10.8)
[2019-12-24 06:41] LABS: INR 1.8 (0.9-1.1); Partial Thromboplastin Ratio 3.4; Prothrombin Time 18.2 Seconds (9.0-12.0)
[2019-12-24 06:48] LABS: Partial Thromboplastin Time 94.6 Seconds (21.0-31.0)
[2019-12-24 06:55] LABS: Albumin Level 1.7 gm/dl (3.4-5.0); BUN Creatinine Ratio 14.2 (10-20); Creatinine Clr Calc Pharmacy 120.3 ml/min; Est GFR (African American) 120.7; Est GFR (Non-African American) 104.2; Potassium 3.8 mmol/L (3.5-5.1)
[2019-12-24 07:19] LABS: Albumin Globulin Ratio 0.3 (0.9-2); Bilirubin,Total 0.5 mg/dl (0.2-1); Globulin 5.8 gm/dl (2.5-4.0); Total Protein 7.5 gm/dl (6.4-8.2)
[2019-12-24] MEDS: FLUOXETINE HCL 20 MG CAP PO SCH (08:11)
[2019-12-24] MEDS: THIAMINE HCL 100 MG TAB PO SCH (08:11)
[2019-12-24] MEDS: MULTIVITAMIN TAB PO SCH (08:11)
[2019-12-24] MEDS: METOPROLOL TARTRATE 50 MG TAB PO SCH ×2 (08:11→20:32)
[2019-12-24] MEDS: ARIPIprazole 1 MG/ML ORAL SOLN 150 ML BTL PO SCH (08:11)
[2019-12-24] MEDS: PETROLATUM 16 OZ JAR EXT SCH (08:13)
--- NOTE | 2019-12-24 10:44 | Pulmonology Progress Note ---
Date of Service December 24, 2019 Assessment & Plan (1) Pleural effusion: 59-year-old male with a past medical history of schizoaffective disorder, incarceration, recent bacteremia with group C streptococcus and atrial fibrillation on Coumadin presenting to the hospital due to shortness of breath and chest pain found to have bilateral pulmonary emboli. Pleural effusion appears to be exudative in nature. Likely related to his recent pulmonary embolus. Cytology is pending. Cultures pending as well. Gram stain negative. Recommend repeating a chest x-ray in 4 to 6 weeks. If pleural fluid reaccumulate will need a repeat thoracentesis for evaluation of cytology and chemistries. Continue anticoagulation as you are doing for his pulmonary embolism. Will need 6 months of anticoagulation for the pulmonary embolism. Pulmonary will follow from the periphery. Thank you for the consult. (2) Pulmonary emboli: Acute cor pulmonale presence: unspecified Chronicity: acute Pulmonary embolism type: other Qualified Code(s): I26.99 - Other pulmonary embolism without acute cor pulmonale (3) Paroxysmal atrial fibrillation: Admission and Anticipated Discharge Date Admission Date: December 22, 2019 Subjective Patient laying in bed. Denies any complaints currently other than feeling cold. Describes that his shortness of breath is no different than it was yesterday. He is shackled to the bed. 2 [facility] guards are at bedside. Denies any chest pain currently. Review of Systems Review of Systems: All systems reviewed & are unremarkable except as noted in HPI & below Physical Exam Eyes: PERRL, conjunctivae normal, anicteric sclerae ENMT: external ear and nose normal, oropharynx normal Neck: normal visual inspection Cardiovascular: Rate/Rhythm: regular rate and + irregularly irregular Gastrointestinal (Abdomen): normal bowel sounds, soft, nontender, no hepatosplenomegaly Musculoskeletal: no cyanosis or clubbing, extremities motor strength 5/5 Neurologic: PERRL, EOMI, accommodation nl, no face palsy, no dysarthria Psychiatric: Orientation: alert and oriented x 3 Mood: + depressed mood Results & Data Results & Data ([facility]) Vital Signs (Past 12 Hours) Vital Signs Temp Pulse Resp BP Pulse Ox 12/24/19 07:10 98.1 F 72 18 112/64 95 12/24/19 03:42 98.4 F 72 16 112/64 95 12/24/19 00:00 98.1 F 70 16 110/62 95 I reviewed vital signs, labs and imaging PG Care Time/CCT Total # of Minutes Spent Total Time Spent with Patient: Total time spent is greater than 50% in coordination of care (as documented) at patient's floor/unit and/or counseling patient: Coding Level of Care Code 05403 Subseq Hosp Care Lvl 3 Diagnoses Pleural effusion J90 Pulmonary emboli I26.99 Acute cor pulmonale presence: unspecified Chronicity: acute Pulmonary embolism type: other Paroxysmal atrial fibrillation I48.0
--- NOTE | 2019-12-24 12:24 | Consultation Report ---
DATE OF CONSULTATION: 12/24/2019 HISTORY OF PRESENT ILLNESS: The patient is a 59-year-old man admitted with cellulitis of his left leg and bilateral pulmonary emboli. The patient is a prisoner. He is unable to give a complete history. However, the patient does not complain of chest pain. He is short of breath. He was also discovered to have a pleural effusion. He was tapped of 1200 mL yesterday. The patient is a former smoker. He does not recall precisely when he stopped smoking. At one time, he says a year ago, another time 7 years ago. He also is receiving heparin. The patient looks chronically ill and perhaps having lost some weight. PHYSICAL EXAMINATION: GENERAL: He is drowsy. LUNGS: Diminished breath sounds left side. HEART: Regular rhythm. ABDOMEN: Flat. No organomegaly. EXTREMITIES: Chronic stasis dermatitis both legs. IMPRESSION: Bilateral pulmonary emboli, likely secondary to chronic venous disease of his lower extremities. However, in context of pleural effusion and smoking history, lung cancer with associated hypercoagulability is certainly a possibility. SUGGESTION: Await pleural fluid cytology. Patient at some point should be changed to an oral anticoagulant such as Eliquis or Xarelto. Depending on the pleural fluid results, he may require further workup including CT of abdomen and pelvis, bone scan and pulmonary workup. I will follow along with you.
--- NOTE | 2019-12-24 13:50 | Electrocardiogram Report ---
Test Reason : Blood Pressure : / mmHG Vent. Rate : 077 BPM Atrial Rate : 077 BPM P-R Int : 144 ms QRS Dur : 084 ms QT Int : 432 ms P-R-T Axes : 067 060 078 degrees QTc Int : 488 ms Sinus rhythm with Premature supraventricular complexes Otherwise normal ECG When compared with ECG of 15-DEC-2019 12:11, Sinus rhythm has replaced Atrial fibrillation Vent. rate has decreased BY 96 BPM Confirmed by Raleigh Flores ([id number]) on 12/24/2019 1:50:05 PM Referred By: [facility] Confirmed By:Raleigh Flores
[2019-12-24 14:28] LABS: Partial Thromboplastin Ratio 2.3
[2019-12-24 14:33] LABS: Partial Thromboplastin Time 64.1 Seconds (21.0-31.0)
--- NOTE | 2019-12-24 14:44 | Pharmacy Report ---
Pharmacy Abx Dose Short Note - Date of Service December 24, 2019 - Assessment & Plan Assessment 59 year old M receiving vancomycin/cefepime for empiric treatment. blood cultures negative to date, pleural culture ngtd, normal wbc, afebrile. Likely de-escalate today Plan Vancomycin Patient meets criteria for vancomycin AUC dosing nomogram AUC/SIERRA is the preferred PK/PD target for vancomycin Target AUC/SIERRA = 400-600 Trough level of 13.2 mcg/mL is predicted to achieve target AUC/SIERRA AUC guided dosing is effective and associated with decreased risk of nephrotoxicity Pharmacy will continue to follow and will adjust dose/frequency as necessary. Thank you.
[2019-12-24] MEDS: WARFARIN SOD 5 MG TAB PO SCH (17:00)
[2019-12-24] MEDS: HEPARIN SODIUM/DEXTROSE 25,000 UNITS/500 ML BAG IV SCH (17:09)
--- NOTE | 2019-12-24 23:51 | Hospitalist Progress Note ---
Date of Service December 24, 2019 Assessment & Plan (1) Pulmonary emboli: Mr. Michelle is a 59yo prisoner with a PMHx significant for atrial fibrillation/atrial flutter on warfarin and metoprolol, recent hospitalization for R thigh cellulitis with group C beta strep bacteremia currently on Keflex, BPH, depression and schizotypal personality disorder who presents to the ED with reports of a temp of 101, saturations of 88-89% and pain with inspiration who was found to have bilateral PEs. Bilateral pulmonary emboli -Pt with reported hypoxia and pleuritic chest pain at longterm -D-dimer of 4710 in ED; CTA with bilateral segmental and subsegmental PE -Likely provoked in the setting of recent hospitalization and subtherapeutic INR on warfarin -no current evidence of heart strain, trops NEGATIVE -Echo 12/16/2019- EF 65-70%, LVH, no wall motion abnormalities, mild mitral regurgitation -continue heparin drip started in ED for bridging until Coumadin is therapeutic -continue daily warfarin 5mg administration awaiting therapuetic warfarin, as longterm likely does not have DOAC available INR is 1.8, adan monitor for another day. Hopefully this continues to rise. Pleural Effusion in the setting of fever -CTA noted moderate R pleural effusion with near complete atelectasis of RLL -Procal elevated at 0.82 -Blood Cx pending, lactate pending -Empiric treatment with Vanc and Cefepime for possible infectious cause; this will be discontinued hold home Keflex. -stopped antibiotics as WBC is normal,no left sided shift, no temp or signs of SIRS. -awaiting cytology of thoracocenthesis Hx of Bacteremia -Pt recently hospitalized and treated for Group C beta strep bacteremia -holding home Keflex -currently on empiric Cefepime and Vancomycin as above -recommend total of 14 days of IV antibiotics for treatment of gram-positive bacteremia R thigh cellulitis, left anterior leg wound -cellulitis currently resolved, has anterior left leg lesion -hold home Keflex -on empiric abx as above -continue home Vitamin A and D topical ointment application Atrial Fibrillation/flutter -currently rate controlled, sinus rhythm, but had multiple paroxysms of rapid atrial fibrillation flutter during recent hospitalization -continue home metoprolol tartrate 50mg BID -anticoagulated with warfarin, INR currently 1.3 -one stat warfarin 10mg dose tonight -continue warfarin 5mg daily, titrate up as needed as above with INR goal between 2-3 -Heparin drip for bridging as above Depression -continue home fluoxetine 20mg and aripiprazole 2mg po Hx of thiamine Deficiency -continue home thiamine 100mg qAM BPH -stable -not on medication currently Pulmonary nodule-noted on CT scan Needs outpatient follow-up with CT scan at appropriate time FEN/GI: Heart Healthy diet DVT prophylaxis: on warfarin currently bridging with heparin CODE STATUS: Full Dispo: PCU/Tele for continued monitoring (2) Bacterial infection due to Streptococcus, group C: (3) Schizotypal personality disorder: (4) Depression: (5) Venous ulcers of both lower extremities: (6) BPH (benign prostatic hyperplasia): (7) Paroxysmal atrial fibrillation: (8) Pleural effusion: (9) Fever: (10) Pulmonary nodule: Admission and Anticipated Discharge Date Admission Date: December 24, 2019 Subjective Patient is a 59 yo male who reports no new symptoms. He states his pain is the same from yesterday. He does appear withdrawn today and only gives one syllable answers (same as yesterday) Review of Systems Review of Systems: All systems reviewed & are unremarkable except as noted in HPI & below Physical Exam Physical Exam: General: Alert, oriented. No acute distress, laying in bed. Skin: Bilateral lower extremities with redness to anterior shins Psych: flat affect Neuro: able to move legs and arms slowly HEENT: NC/AT Chest: Nontender to palpation. CV: RRR, Normal s1, s2. No murmurs appreciated Resp: Breath sounds clear bilaterally, no increased effort of breathing. Abdomen: Soft, nontender, nondistended. No guarding. Extremities: No edema in lower extremities bilaterally. Bilateral lower extremities with redness to anterior shins Results & Data Results & Data ([facility]) Vital Signs (Past 12 Hours) Vital Signs Temp Pulse Pulse Resp BP Pulse Ox 12/24/19 20:54 72 12/24/19 19:10 36.9 C 86 24 126/73 93 12/24/19 15:51 37.3 C 74 20 100/59 L 94 PG Care Time/CCT Total # of Minutes Spent Total Time Spent with Patient: Total time spent is greater than 50% in coordination of care (as documented) at patient's floor/unit and/or counseling patient: Coding Level of Care Code 06752 Subseq Hosp Care Lvl 2 Diagnoses Pulmonary emboli I26.99 Acute cor pulmonale presence: unspecified Chronicity: acute Pulmonary embolism type: other Bacterial infection due to Streptococcus, group C A49.1 Schizotypal personality disorder F21 Depression F32.9 Venous ulcers of both lower extremities I83.019; I83.029; L97.919; L97.929 BPH (benign prostatic hyperplasia) N40.0 Paroxysmal atrial fibrillation I48.0 Pleural effusion J90 Fever R50.9 Pulmonary nodule R91.1 Time Spent (min) 25 (1) Pulmonary emboli Acute cor pulmonale presence: unspecified Chronicity: acute Pulmonary embolism type: other Qualified Code(s): I26.99 - Other pulmonary embolism without acute cor pulmonale
[2019-12-25 05:38] LABS: Basophils # (auto) 0.01 K/uL (0-0.2); Basophils % (auto) 0.1 %; Eosinophils % (auto) 1.4 %; Immature Granulocytes # (auto) 0.04 K/uL (0.00-0.02); Immature Granulocytes % (auto) 0.6 %; Lymphocytes # (auto) 2.54 K/uL (1.2-3.4); Lymphocytes % (auto) 35.5 %; Mean Corpuscular Hemoglobin 29.9 pg (25-34); Mean Corpuscular Hgb Conc 33.3 g/dL (32-36); Mean Corpuscular Volume 89.7 fL (80-100); Mean Platelet Volume 8.1 fL (7.4-10.4); Monocytes % (auto) 9.8 %; Neutrophils # (auto) 3.77 K/uL (1.4-6.5); Neutrophils % (auto) 52.6 %; Platelet Count 423 K/uL (130-400); RDW Coefficient of Variation 14.2 % (11.5-14.5); Red Blood Count 3.68 M/uL (4.7-6.1); White Blood Count 7.16 K/uL (4.8-10.8)
[2019-12-25 05:55] LABS: INR 1.8 (0.9-1.1); Partial Thromboplastin Ratio 2.6; Prothrombin Time 18.3 Seconds (9.0-12.0)
[2019-12-25 05:57] LABS: Partial Thromboplastin Time 71.2 Seconds (21.0-31.0)
[2019-12-25 06:03] LABS: Albumin Level 1.8 gm/dl (3.4-5.0); BUN Creatinine Ratio 15.7 (10-20); Calcium 7.9 mg/dl (8.5-10.1); Creatinine Clr Calc Pharmacy 129.4 ml/min; Est GFR (African American) 124.4; Est GFR (Non-African American) 107.3; Potassium 3.7 mmol/L (3.5-5.1)
[2019-12-25 06:06] LABS: Albumin Globulin Ratio 0.3 (0.9-2); Bilirubin,Total 0.7 mg/dl (0.2-1); Globulin 6.1 gm/dl (2.5-4.0); Total Protein 7.9 gm/dl (6.4-8.2)
[2019-12-25] MEDS: THIAMINE HCL 100 MG TAB PO SCH (08:00)
[2019-12-25] MEDS: METOPROLOL TARTRATE 50 MG TAB PO SCH ×2 (08:00→20:30)
[2019-12-25] MEDS: MULTIVITAMIN TAB PO SCH (08:00)
[2019-12-25] MEDS: FLUOXETINE HCL 20 MG CAP PO SCH (08:00)
[2019-12-25] MEDS: ARIPIprazole 1 MG/ML ORAL SOLN 150 ML BTL PO SCH (08:00)
[2019-12-25] MEDS ORDERED: cephALEXin 500 MG CAP PO SCH (09:00)
[2019-12-25] MEDS: cephALEXin 500 MG CAP PO SCH ×4 (11:28→20:30)
[2019-12-25 12:33] LABS: Partial Thromboplastin Ratio 2.2
[2019-12-25 12:39] LABS: Partial Thromboplastin Time 60.6 Seconds (21.0-31.0)
--- NOTE | 2019-12-25 12:40 | Pulmonology Progress Note ---
Date of Service December 25, 2019 Assessment & Plan (1) Pleural effusion: 59-year-old male with a past medical history of schizoaffective disorder, incarceration, recent bacteremia with group C streptococcus and atrial fibrillation on Coumadin presenting to the hospital due to shortness of breath and chest pain found to have bilateral pulmonary emboli. Pleural effusion appears to be exudative in nature. Likely related to his recent pulmonary embolus. Cytology is pending. Cultures pending as well. Gram stain negative. Recommend repeating a chest x-ray in 4 to 6 weeks. If pleural fluid reaccumulate will need a repeat thoracentesis for evaluation of cytology and chemistries. Continue anticoagulation as you are doing for his pulmonary embolism. Will need 6 months of anticoagulation for the pulmonary embolism. Recommend rate control of atrial fibrillation. May need cardiology consultation. Pulmonary will follow from the periphery. Thank you for the consult. (2) Pulmonary emboli: Acute cor pulmonale presence: unspecified Chronicity: acute Pulmonary embolism type: other Qualified Code(s): I26.99 - Other pulmonary embolism without acute cor pulmonale (3) Paroxysmal atrial fibrillation: Admission and Anticipated Discharge Date Admission Date: December 24, 2019 Subjective Patient complains unchanged from yesterday. Still has right-sided pleurisy. Minimal shortness of breath. He currently is in atrial fibrillation with rapid ventricular response. He denies any palpitations or chest pain aside from the right-sided pain that is unchanged from yesterday. Review of Systems Review of Systems: All systems reviewed & are unremarkable except as noted in HPI & below Physical Exam Eyes: PERRL, conjunctivae normal, anicteric sclerae ENMT: external ear and nose normal, oropharynx normal Neck: normal visual inspection Respiratory: Auscultation: + diminished lung sounds Cardiovascular: Rate/Rhythm: regular rate and + irregularly irregular Gastrointestinal (Abdomen): normal bowel sounds, soft, nontender, no hepatosplenomegaly Musculoskeletal: no cyanosis or clubbing, extremities motor strength 5/5 Neurologic: PERRL, EOMI, accommodation nl, no face palsy, no dysarthria Psychiatric: Orientation: alert and oriented x 3 Mood: + depressed mood Results & Data Results & Data ([facility]) Vital Signs (Past 12 Hours) Vital Signs Temp Pulse Pulse Resp BP Pulse Ox 12/25/19 11:38 98.6 F 133 H 27 H 126/73 93 12/25/19 07:11 98.2 F 85 17 126/68 90 12/25/19 03:00 99.0 F 73 18 117/71 92 I reviewed vital signs labs and imaging PG Care Time/CCT Total # of Minutes Spent Total Time Spent with Patient: Total time spent is greater than 50% in coordination of care (as documented) at patient's floor/unit and/or counseling patient: Coding Level of Care Code 01909 Subseq Hosp Care Lvl 2 Diagnoses Pleural effusion J90 Pulmonary emboli I26.99 Acute cor pulmonale presence: unspecified Chronicity: acute Pulmonary embolism type: other Paroxysmal atrial fibrillation I48.0
[2019-12-25] MEDS: HEPARIN SODIUM/DEXTROSE 25,000 UNITS/500 ML BAG IV SCH (14:22)
[2019-12-25] MEDS: PETROLATUM 16 OZ JAR EXT SCH (14:24)
--- NOTE | 2019-12-25 15:50 | Hospitalist Progress Note ---
Date of Service December 25, 2019 Assessment & Plan (1) Pulmonary emboli: Mr. Michelle is a 59yo prisoner with a PMHx significant for atrial fibrillation/atrial flutter on warfarin and metoprolol, recent hospitalization for R thigh cellulitis with group C beta strep bacteremia currently on Keflex, BPH, depression and schizotypal personality disorder who presents to the ED with reports of a temp of 101, saturations of 88-89% and pain with inspiration who was found to have bilateral PEs. Bilateral pulmonary emboli -Pt with reported hypoxia and pleuritic chest pain at [facility] -D-dimer of 4710 in ED; CTA with bilateral segmental and subsegmental PE -Likely provoked in the setting of recent hospitalization and subtherapeutic INR on warfarin -no current evidence of heart strain, trops NEGATIVE -Echo 12/16/2019- EF 65-70%, LVH, no wall motion abnormalities, mild mitral regurgitation -continue heparin drip started in ED for bridging until Coumadin is therapeutic -continue daily warfarin 5mg administration awaiting therapuetic warfarin, as [facility] likely does not have DOAC available INR is 1.8, adan monitor for another day. Hopefully this continues to rise. Will need anticoag tx x6 months Pleural Effusion in the setting of fever -CTA noted moderate R pleural effusion with near complete atelectasis of RLL -Procal elevated at 0.82 -Blood Cx pending, lactate pending -Empiric treatment with Vanc and Cefepime for possible infectious cause. See below Thoracocentesis noted for neg gram stain and neg for acid fast bacilli, pulm feels likely an exudate Hx of Bacteremia -Pt recently hospitalized and treated for Group C beta strep bacteremia -was transitioned to Cefepime and Vancomycin as above, plan was for abx until 12/31 Blood cx neg on admission Resumed keflex on 12/24, pharmacy recs for BID -> QID dosing due to bacteremia R thigh cellulitis, left anterior leg wound -cellulitis currently resolved, has anterior left leg lesion As above -continue home Vitamin A and D topical ointment application Atrial Fibrillation/flutter -currently rate controlled, sinus rhythm, but had multiple paroxysms of rapid atrial fibrillation flutter during recent hospitalization -continue home metoprolol tartrate 50mg BID -anticoagulated with warfarin -continue warfarin 5mg daily, titrate up as needed as above with INR goal between 2-3 -Heparin drip for bridging as above Depression -continue home fluoxetine 20mg and aripiprazole 2mg po Hx of thiamine Deficiency -continue home thiamine 100mg qAM BPH -stable -not on medication currently Pulmonary nodule-noted on CT scan Radiology states that nodule does not qualify for f/u imaging under current guidelines FEN/GI: Heart Healthy diet DVT prophylaxis: on warfarin currently bridging with heparin CODE STATUS: Full Dispo: PCU/Tele for continued monitoring (2) Bacterial infection due to Streptococcus, group C: (3) Schizotypal personality disorder: (4) Depression: (5) Venous ulcers of both lower extremities: (6) BPH (benign prostatic hyperplasia): (7) Paroxysmal atrial fibrillation: (8) Pleural effusion: (9) Fever: (10) Pulmonary nodule: Admission and Anticipated Discharge Date Admission Date: December 24, 2019 Subjective Pt has no concerns today. Pt denies fever, SOB, chest pain, abd pain, n/v/c/d, LE pain or swelling. Review of Systems Review of Systems: Pertinent positives and negatives reviewed in HPI--all others negative Physical Exam Constitutional: WD/WN, vitals as above Eyes: normal visual taylor by confrontation and + anicteric sclerae Neck: normal visual inspection and trachea midline Respiratory: normal respiratory effort, lungs clear to auscultation Cardiovascular: Rate/Rhythm: regular rate and regular rhythm Gastrointestinal (Abdomen): Inspection/Auscultation: abdomen not distended Percussion/Palpation: abdomen soft; abdomen nontender Musculoskeletal: Head/Neck/Chest: normocephalic and head atraumatic negative for edema, peripheral pulses intact Skin: no rashes, warm and dry Neurologic: awake; not confused Speech / Cognition: normal speech Psychiatric: Orientation: oriented x 3 and cooperative Affect: + flat affect Results & Data Results & Data ([facility]) Vital Signs (Past 12 Hours) Vital Signs Temp Pulse Resp BP Pulse Ox 12/25/19 15:28 36.9 C 90 21 96/61 L 94 12/25/19 11:38 37.0 C 133 H 27 H 126/73 93 12/25/19 07:11 36.8 C 85 17 126/68 90 PG Care Time/CCT Total # of Minutes Spent Total Time Spent with Patient: Total time spent is greater than 50% in coordination of care (as documented) at patient's floor/unit and/or counseling patient: Coding Level of Care Code 91119 Subseq Hosp Care Lvl 3 Diagnoses Pulmonary emboli I26.99 Acute cor pulmonale presence: unspecified Chronicity: acute Pulmonary embolism type: other Bacterial infection due to Streptococcus, group C A49.1 Schizotypal personality disorder F21 Depression F32.9 Venous ulcers of both lower extremities I83.019; I83.029; L97.919; L97.929 BPH (benign prostatic hyperplasia) N40.0 Paroxysmal atrial fibrillation I48.0 Pleural effusion J90 Fever R50.9 Pulmonary nodule R91.1 (1) Pulmonary emboli Acute cor pulmonale presence: unspecified Chronicity: acute Pulmonary embolism type: other Qualified Code(s): I26.99 - Other pulmonary embolism without acute cor pulmonale
[2019-12-25] MEDS: WARFARIN SOD 5 MG TAB PO SCH (16:27)
[2019-12-26 05:01] LABS: Basophils # (auto) 0.02 K/uL (0-0.2); Basophils % (auto) 0.2 %; Eosinophils # (auto) 0.05 K/uL (0-0.5); Eosinophils % (auto) 0.6 %; Hematocrit (blood only) 35.4 % (42-52); Immature Granulocytes # (auto) 0.06 K/uL (0.00-0.02); Immature Granulocytes % (auto) 0.7 %; Lymphocytes # (auto) 2.85 K/uL (1.2-3.4); Lymphocytes % (auto) 34.3 %; Mean Corpuscular Hemoglobin 30.4 pg (25-34); Mean Corpuscular Hgb Conc 33.9 g/dL (32-36); Mean Corpuscular Volume 89.6 fL (80-100); Mean Platelet Volume 8.2 fL (7.4-10.4); Monocytes # (auto) 0.85 K/uL (0.11-0.59); Monocytes % (auto) 10.2 %; Neutrophils # (auto) 4.48 K/uL (1.4-6.5); Platelet Count 450 K/uL (130-400); RDW Standard Deviation 46.4 fL (36.4-46.3); Red Blood Count 3.95 M/uL (4.7-6.1); White Blood Count 8.31 K/uL (4.8-10.8)
[2019-12-26 05:26] LABS: INR 2.5 (0.9-1.1); Partial Thromboplastin Ratio 2.7; Prothrombin Time 25.2 Seconds (9.0-12.0)
[2019-12-26 05:29] LABS: Partial Thromboplastin Time 75.5 Seconds (21.0-31.0)
[2019-12-26] MEDS: HEPARIN SODIUM/DEXTROSE 25,000 UNITS/500 ML BAG IV SCH ×3 (07:36→15:24)
[2019-12-26] MEDS: MULTIVITAMIN TAB PO SCH (09:00)
[2019-12-26] MEDS: FLUOXETINE HCL 20 MG CAP PO SCH (09:00)
[2019-12-26] MEDS: THIAMINE HCL 100 MG TAB PO SCH (09:00)
[2019-12-26] MEDS: cephALEXin 500 MG CAP PO SCH ×4 (09:01→19:35)
[2019-12-26] MEDS: METOPROLOL TARTRATE 50 MG TAB PO SCH ×2 (09:01→19:35)
[2019-12-26] MEDS: ARIPIprazole 1 MG/ML ORAL SOLN 150 ML BTL PO SCH (09:40)
[2019-12-26] MEDS: PETROLATUM 16 OZ JAR EXT SCH (09:41)
[2019-12-26 11:50] LABS: Partial Thromboplastin Ratio 2.2
[2019-12-26 12:23] LABS: Partial Thromboplastin Time 62.2 Seconds (21.0-31.0)
--- NOTE | 2019-12-26 14:49 | Hospitalist Progress Note ---
Date of Service December 26, 2019 Assessment & Plan (1) Pulmonary emboli: Mr. Michelle is a 59yo prisoner with a PMHx significant for atrial fibrillation/atrial flutter on warfarin and metoprolol, recent hospitalization for R thigh cellulitis with group C beta strep bacteremia currently on Keflex, BPH, depression and schizotypal personality disorder who presents to the ED with reports of a temp of 101, saturations of 88-89% and pain with inspiration who was found to have bilateral PEs. Bilateral pulmonary emboli -Pt with reported hypoxia and pleuritic chest pain at long term -D-dimer of 4710 in ED; CTA with bilateral segmental and subsegmental PE -Likely provoked in the setting of recent hospitalization and subtherapeutic INR on warfarin -no current evidence of heart strain, trops NEGATIVE -Echo 12/16/2019- EF 65-70%, LVH, no wall motion abnormalities, mild mitral regurgitation -continue heparin drip started in ED for bridging until Coumadin is therapeutic -continue daily warfarin 5mg administration awaiting therapuetic warfarin, as long term likely does not have DOAC available INR is 2.5, will monitor for another day, need to be therapeutic x48 hrs to d/c bridging Will need anticoag tx x6 months Pleural Effusion in the setting of fever -CTA noted moderate R pleural effusion with near complete atelectasis of RLL -Procal elevated at 0.82 -Blood Cx pending, lactate pending -Empiric treatment with Vanc and Cefepime for possible infectious cause. See below Thoracocentesis noted for neg gram stain and neg for acid fast bacilli, pulm feels likely an exudate Pleural fluid resulted as benign cells Hx of Bacteremia -Pt recently hospitalized and treated for Group C beta strep bacteremia -was transitioned to Cefepime and Vancomycin as above, plan was for abx until 12/31 Blood cx neg on admission Resumed keflex on 12/24, pharmacy recs for BID -> QID dosing due to bacteremia Add probiotic R thigh cellulitis, left anterior leg wound -cellulitis currently resolved, has anterior left leg lesion As above -continue home Vitamin A and D topical ointment application Atrial Fibrillation/flutter -currently rate controlled, sinus rhythm, but had multiple paroxysms of rapid atrial fibrillation flutter during recent hospitalization -continue home metoprolol tartrate 50mg BID -anticoagulated with warfarin -continue warfarin 5mg daily, titrate up as needed as above with INR goal between 2-3 -Heparin drip for bridging as above Depression -continue home fluoxetine 20mg and aripiprazole 2mg po Hx of thiamine Deficiency -continue home thiamine 100mg qAM BPH -stable Pt was listed as using finasteride on last admission, however it fell off on the d/c summary and was not noted on H&P Restart giving stream issues and incontinence Pulmonary nodule-noted on CT scan Radiology states that nodule does not qualify for f/u imaging under current guidelines FEN/GI: Heart Healthy diet DVT prophylaxis: on warfarin currently bridging with heparin CODE STATUS: Full Dispo: PCU/Tele for continued monitoring (2) Bacterial infection due to Streptococcus, group C: (3) Schizotypal personality disorder: (4) Depression: (5) Venous ulcers of both lower extremities: (6) BPH (benign prostatic hyperplasia): (7) Paroxysmal atrial fibrillation: (8) Pleural effusion: (9) Fever: (10) Pulmonary nodule: Admission and Anticipated Discharge Date Admission Date: December 24, 2019 Subjective Nursing states that pt has had several episodes of urinary incontinence since yesterday. Pt states that he feels the urge to urinate and feels like he has emptied his bladder completely into the handheld urinal, however after he takes his penis out of the urinal, he will start to urinate again. He states this is not usual for him and is new since yesterday. Pt is also having diarrhea today. Tolerating PO without issue. Pt denies fever, SOB, chest pain, abd pain, n/v, LE pain or swelling. Review of Systems Review of Systems: Pertinent positives and negatives reviewed in HPI--all others negative Physical Exam Constitutional: WD/WN, vitals as above Eyes: normal visual taylor by confrontation and + anicteric sclerae Neck: normal visual inspection and trachea midline Respiratory: normal respiratory effort, lungs clear to auscultation Cardiovascular: Rate/Rhythm: regular rate; + abnormal rhythm Gastrointestinal (Abdomen): Inspection/Auscultation: abdomen not distended Percussion/Palpation: abdomen soft; abdomen nontender Musculoskeletal: Head/Neck/Chest: normocephalic and head atraumatic Skin: no rashes, warm and dry Neurologic: awake; not confused Speech / Cognition: normal speech Psychiatric: Orientation: oriented x 3 and cooperative Affect: + flat af fect Results & Data Results & Data ([facility]) Vital Signs (Past 12 Hours) Vital Signs Temp Pulse Pulse Resp BP BP Pulse Ox 12/26/19 11:55 36.7 C 113 H 17 121/72 94 12/26/19 07:59 36.9 C 116 H 18 96/60 L 93 12/26/19 07:00 116 H 12/26/19 04:11 36.8 C 94 H 18 96/63 L 93 PG Care Time/CCT Total # of Minutes Spent Total Time Spent with Patient: Total time spent is greater than 50% in coordination of care (as documented) at patient's floor/unit and/or counseling patient: Coding Level of Care Code 66806 Subseq Hosp Care Lvl 3 Diagnoses Pulmonary emboli I26.99 Acute cor pulmonale presence: unspecified Chronicity: acute Pulmonary embolism type: other Bacterial infection due to Streptococcus, group C A49.1 Schizotypal personality disorder F21 Depression F32.9 Venous ulcers of both lower extremities I83.019; I83.029; L97.919; L97.929 BPH (benign prostatic hyperplasia) N40.0 Paroxysmal atrial fibrillation I48.0 Pleural effusion J90 Fever R50.9 Pulmonary nodule R91.1 (1) Pulmonary emboli Acute cor pulmonale presence: unspecified Chronicity: acute Pulmonary embolism type: other Qualified Code(s): I26.99 - Other pulmonary embolism without acute cor pulmonale
[2019-12-26] MEDS: FINASTERIDE 5 MG TAB PO SCH (15:33)
[2019-12-26] MEDS: WARFARIN SOD 5 MG TAB PO SCH (15:34)
[2019-12-26] MEDS: LACTOBACILLUS ACIDOPHILUS 1 GM PACK PO SCH (16:58)
[2019-12-27] MEDS: HEPARIN SODIUM/DEXTROSE 25,000 UNITS/500 ML BAG IV SCH (06:09)
[2019-12-27 06:56] LABS: Partial Thromboplastin Ratio 2.1; Prothrombin Time 29.9 Seconds (9.0-12.0)
[2019-12-27 06:59] LABS: Partial Thromboplastin Time 59.4 Seconds (21.0-31.0)
[2019-12-27] MEDS: LACTOBACILLUS ACIDOPHILUS 1 GM PACK PO SCH ×2 (08:34→12:26)
[2019-12-27] MEDS: FLUOXETINE HCL 20 MG CAP PO SCH (08:34)
[2019-12-27] MEDS: cephALEXin 500 MG CAP PO SCH ×2 (08:34→12:26)
[2019-12-27] MEDS: METOPROLOL TARTRATE 50 MG TAB PO SCH (08:34)
[2019-12-27] MEDS: PETROLATUM 16 OZ JAR EXT SCH (08:35)
[2019-12-27] MEDS: FINASTERIDE 5 MG TAB PO SCH (08:35)
[2019-12-27] MEDS: MULTIVITAMIN TAB PO SCH (08:35)
[2019-12-27] MEDS: ARIPIprazole 1 MG/ML ORAL SOLN 150 ML BTL PO SCH (08:35)
[2019-12-27] MEDS: THIAMINE HCL 100 MG TAB PO SCH (08:35)
--- NOTE | 2019-12-27 13:03 | Discharge Summary ---
Date of Service December 27, 2019 Admission HPI Per Admitting Provider Mr. Michelle is a 59yo prisoner with a PMHx significant for atrial fibrillation/atrial flutter on warfarin and metoprolol, R thigh cellulitis with gram positive bacteremia currently on Keflex, BPH, depression and schizotypal personality disorder who presents to the ED with reports of a temp of 101, saturations of 88-89% and pain with inspiration who was found to have bilateral PEs. Pt is a poor historian and states that he currently has no respiratory symptoms. Is unsure of what brought him to the hospital today. History was mostly obtained from the EMT notes. Principal Diagnosis Pt states he has not had any urinary incontinence since yesterday. He is still having diarrhea, but it is not as loose or hitting as quickly as yesterday. Tolerating PO without issue. Pt denies fever, SOB, chest pain, abd pain, n/v, LE pain or swelling. Discharge Exam Constitutional WD/WN, vitals as above Eyes normal visual taylor by confrontation and + anicteric sclerae Neck normal visual inspection and trachea midline Respiratory normal respiratory effort, lungs clear to auscultation Cardiovascular Rate/Rhythm: regular rate; + abnormal rhythm Gastrointestinal (Abdomen) Inspection/Auscultation: abdomen not distended Percussion/Palpation: abdomen soft; abdomen nontender Musculoskeletal Head/Neck/Chest: normocephalic and head atraumatic Skin no rashes, warm and dry Neurologic awake; not confused Speech / Cognition: normal speech Psychiatric Orientation: oriented x 3 and cooperative Affect: + flat affect Discharge Data Allergies Allergy/AdvReac Type Severity Reaction Status Date / Time Penicillins Allergy Unknown Unknown Verified 12/22/19 17:24 Consultations 12/22/19 18:44 ED Decision to Admit Stat 12/22/19 21:04 Consult Pulmonology Routine Ordered Studies 12/22/19 17:30 CT angio chest PE protocol Stat 12/22/19 20:45 US venous doppler LE BI Urgent 12/23/19 15:23 US point of care ultrasound Stat Hospital Course (1) Pulmonary emboli: Mr. Michelle is a 59yo prisoner with a PMHx significant for atrial fibrillation/atrial flutter on warfarin and metoprolol, recent hospitalization for R thigh cellulitis with group C beta strep bacteremia currently on Keflex, BPH, depression and schizotypal personality disorder who presents to the ED with reports of a temp of 101, saturations of 88-89% and pain with inspiration who was found to have bilateral PEs. Bilateral pulmonary emboli -Pt with reported hypoxia and pleuritic chest pain at intermediate -D-dimer of 4710 in ED; CTA with bilateral segmental and subsegmental PE -Likely provoked in the setting of recent hospitalization and subtherapeutic INR on warfarin -no current evidence of heart strain, trops NEGATIVE -Echo 12/16/2019- EF 65-70%, LVH, no wall motion abnormalities, mild mitral regurgitation -continue heparin drip started in ED for bridging until Coumadin is therapeutic Baseline dosing was warfarin 5mg INR went from 2.5 to 3.0 overnight and has now been therapeutic x48 hrs d/c bridging Will need anticoag tx x6 months Advised for warfarin 2.5mg at facility tonight due to jump and repeat in AM with further management by facility team Pleural Effusion in the setting of fever -CTA noted moderate R pleural effusion with near complete atelectasis of RLL -Procal elevated at 0.82 -Blood Cx pending, lactate pending -Empiric treatment with Vanc and Cefepime for possible infectious cause. See below Thoracocentesis noted for neg gram stain and neg for acid fast bacilli, pulm feels likely an exudate Pleural fluid resulted as benign cells Hx of Bacteremia -Pt recently hospitalized and treated for Group C beta strep bacteremia -was transitioned to Cefepime and Vancomycin as above, plan on d/c was for abx u ntil 12/31 Blood cx neg on admission Resumed keflex on 12/24, pharmacy recs for BID -> QID dosing due to bacteremia, continue until 12/31 Add probiotic for diarrhea R thigh cellulitis, left anterior leg wound -cellulitis currently resolved, has anterior left leg lesion As above -continue home Vitamin A and D topical ointment application Atrial Fibrillation/flutter -currently rate controlled, sinus rhythm, but had multiple paroxysms of rapid atrial fibrillation flutter during recent hospitalization -continue home metoprolol tartrate 50mg BID -anticoagulated with warfarin -continue warfarin as above Depression -continue home fluoxetine 20mg and aripiprazole 2mg po Hx of thiamine Deficiency -continue home thiamine 100mg qAM BPH -stable Pt was listed as using finasteride on last admission, however it fell off on the d/c summary and was not noted on H&P Restart giving stream issues and incontinence, seems to have helped Pulmonary nodule-noted on CT scan Radiology states that nodule does not qualify for f/u imaging under current guidelines FEN/GI: Heart Healthy diet CODE STATUS: Full (2) Bacterial infection due to Streptococcus, group C: (3) Schizotypal personality disorder: (4) Depression: (5) Venous ulcers of both lower extremities: (6) BPH (benign prostatic hyperplasia): (7) Paroxysmal atrial fibrillation: (8) Pleural effusion: (9) Fever: (10) Pulmonary nodule: Total Time Total Time Spent Total Time Spent (In Minutes): >30 Total Time Includes: Examination of the Patient, Discharge Planning, Medication Reconciliation, Communication With Other Providers and Other Discharge Plan Discharge Items Patient Disposition: [facility] Reason For Visit: PEs Discharge Diagnosis: bilateral PE Condition on Discharge: Good Activity: Resume your previous activity Non-emergency contact: Primary Care Provider Call non-emergency contact if: you have any medication questions and your symptoms worsen Follow-up/Referrals: Maciej MCCLURE [Primary Care Provider] - Diet: Regular Addtl Attending Provider Instructions: Pt should take coumadin 2.5mg THIS EVENING (12/26) and have INR checked in AM (12/27) with dose adjustment as per correctional facility medical team INR on d/c 3.0 Pending Studies at Discharge: No Stand-Alone Forms: My [facility] Skilled Items Patient informed of condition?: Yes Discharge Level of Care: Other Communicable Disease: No Discharge Prognosis: Improving Lines: None Urinary Catheter: No Medications and DC Order Prescriptions: New cephalexin 500 mg Capsule 500 mg PO QID Qty: 24 RF: 0 finasteride [Proscar] 5 mg Tablet 5 mg PO QAM Qty: 30 RF: 0 Floranex 100 million cell Granules In Packet 1 g PO TIDM 30 Days RF: 0 Continued vitamin A and D Ointment 1 applic TOPICAL DAILY RF: 0 fluoxetine 20 mg Capsule 20 mg PO DAILY RF: 0 aripiprazole 2 mg Tablet 2 mg PO DAILY RF: 0 multivitamin [Daily-Vivien] Tablet 1 tab PO QAM 30 Days Qty: 30 RF: 0 thiamine HCl (vitamin B1) [Vitamin B-1] 100 mg Tablet 100 mg PO QAM 30 Days Qty: 30 RF: 0 warfarin 5 mg Tablet 5 mg PO DAILY@1600 30 Days Qty: 30 RF: 0 metoprolol tartrate 25 mg Tablet 50 mg PO BID 30 Days Qty: 120 RF: 3 Discontinued cephalexin 500 mg Capsule 500 mg PO BID 11 Days Qty: 22 RF: 0 Discharge Orders: Discharge Order (Routine); Ordered 12/27/19 Ordered By: Lisa Weeks Admission Data Admit Date/Time: 12/24/19 18:03 Attending Provider: Lisa Weeks Admit Provider: Vicki Marquez Primary Care Provider: Maciej MCCLURE Other Providers: Nery Aldana ; Waldemar Solomon Other Interventions: Discharge Summary Assessment (RN) Last Done: 12/27/19 14:07 Coding Level of Care Code D/C Day Management >30 mins Diagnoses Pulmonary emboli I26.99 Acute cor pulmonale presence: unspecified Chronicity: acute Pulmonary embolism type: other Bacterial infection due to Streptococcus, group C A49.1 Schizotypal personality disorder F21 Depression F32.9 Venous ulcers of both lower extremities I83.019; I83.029; L97.919; L97.929 BPH (benign prostatic hyperplasia) N40.0 Paroxysmal atrial fibrillation I48.0 Pleural effusion J90 Fever R50.9 Pulmonary nodule R91.1
== END 2019-12-27 15:53 | DRG 176 ==
LOC: ED 16:15 → 2S 16:15 → SUATTDRO 19:59 → 2S 21:09 → SUATTDRO 12-24 18:03 → 2S 12-26 13:11
DX: I83.019 Varicose veins of right lower extremity with ulcer of unspecified site; J90 Pleural effusion, not elsewhere classified; N40.0 Benign prostatic hyperplasia without lower urinary tract symptoms; I48.0 Paroxysmal atrial fibrillation; F21 Schizotypal disorder; I83.029 Varicose veins of left lower extremity with ulcer of unspecified site; L97.919 Non-pressure chronic ulcer of unspecified part of right lower leg with unspecified severity; I26.99 Other pulmonary embolism without acute cor pulmonale; A49.1 Streptococcal infection, unspecified site; L03.115 Cellulitis of right lower limb; L97.929 Non-pressure chronic ulcer of unspecified part of left lower leg with unspecified severity; Z87.891 Personal history of nicotine dependence; F32.9 Major depressive disorder, single episode, unspecified